=== PATIENT | male | born 1970 | race Caucasian/White ===

== ENCOUNTER 2018-09-29 18:11 | Inpatient (IN) ==
--- NOTE | 2018-09-29 18:17 | Emergency Department Note ---
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 Diabetes mellitus complication status: with hyperglycemia Qualified Code(s): E11.65 - Type 2 diabetes mellitus with hyperglycemia Chest pain Qualifiers: Chest pain type: unspecified Qualified Code(s): R07.9 - Chest pain, unspecified Disposition: Admitted As Inpatient Condition: Fair Time of Disposition: 00:59 General Adult HPI - General Stated complaint: SOB Time Seen by Provider: 09/29/18 18:15 Source: patient, EMS Mode of arrival: EMS Limitations: no limitations Nursing Notes Reviewed: Yes Vital Signs Reviewed: Yes - History of Present Illness HPI Narrative: 48-year-old male presenting via EMS after concerns of presyncopal episode, chest pain or shortness breath experienced today at home. EMS states patient's trailer was at least 100 degrees that he was diaphoretic at the scene. Patient states that he felt very lightheaded and nearly passed out but was caught by his son and assisted to a chair. Patient states he is having worsening chest pain shortness of breath today. Patient on presentation and is asymptomatic. Onset (ago): day(s) Location: chest Radiation: non-radiation Pain Severity: severe Pain Scale: 8 Associated symptoms: Reports: shortness of breath - Related Data Home Medications Medication Instructions Recorded Confirmed Loratadine [Claritin] 10 mg PO DAILY 09/30/15 09/30/18 Insulin Glargine,Hum.rec.anlog 35 units SQ HS 01/30/17 09/30/18 [Toujeo Solostar] Tizanidine HCl [Zanaflex] 4 mg PO HS 05/15/17 09/30/18 Albuterol Sulfate [Ventolin Hfa] 2 puff IH Q6H PRN 07/25/18 09/30/18 Cyanocobalamin/Folic AC/Vit B6 1 tab PO DAILY 07/25/18 09/30/18 [Folbee Tablet] DULoxetine [Cymbalta] 30 mg PO DAILY 07/25/18 09/30/18 Gabapentin 800 mg PO TID 07/25/18 09/30/18 Insulin ASPART [Novolog Flexpen] 20 unit SQ QID 07/25/18 09/30/18 Omeprazole [PriLOSEC] 40 mg PO BID 07/25/18 09/30/18 Clopidogrel [Plavix] 75 mg PO DAILY 08/27/18 09/30/18 Isosorbide MONOnitrate (24 HR) 60 mg PO DAILY 09/30/18 09/30/18 [Imdur] Previous Rx's Medication Instructions Recorded Aspirin 81 mg PO DAILY tab.chew 07/27/18 Atorvastatin Calcium 80 mg PO HS #30 tablet 07/27/18 Lisinopril [Zestril] 5 mg PO DAILY #30 tablet 07/27/18 Nitroglycerin 0.4 mg SL Q5M PRN #30 tab.subl 07/27/18 Allergies Allergy/AdvReac Type Severity Reaction Status Date / Time No Known Allergies Allergy Verified 09/30/18 16:20 Review of Systems: Constitutional: Denies: fever, chills Cardiovascular: Patient is currently asymptomatic. admits to chest pain earlier in the day. Respiratory: She is currently asymptomatic. reports dyspnea earlier today. Gastrointestinal: Denies: abdominal pain, nausea, vomiting, diarrhea, constipation, hematemesis, melena, hematochezia Musculoskeletal: Denies: back pain, neck pain Integumentary: Denies: rash Neurological: Denies: headache, weakness, numbness, paresthesias All systems ED: reviewed and negative except as stated. Review of Systems: As Per HPI Past Medical History - Past Medical History Medical history: Reports: coronary artery disease, diabetes, hypertension Surgical history: Reports: no surgical history Psychiatric history: Reports: no psych history - Social History Smoking Status: Never smoker Smokeless Tobacco Status: Yes Alcohol use: Reports: none Drug use: Reports: none Physical Exam Constitutional: No acute distress, [id number], engaged to conversation, speech is fluid, answers questions appropriately Neuro: GCS 15, no overt focal neurological deficits Head: Atraumatic, normocephalic Eyes: Pupils equal, round and reactive to light, no scleral icterus, no conjunctival injection Neck: Trachea midline without deviation. Anterior neck is supple without swelling. *Chest: Symmetric chest wall rise *Heart: Cardiac rhythm and rate are regular with S1 and S2 , no S3 or S4 appreciated, no murmurs, gallops, rubs, or clicks. *Lungs: Lungs are clear to auscultation bilaterally, without accessory muscle use or prolonged expiratory phase. No wheezes, rhonchi or stridor appreciated. Abdomen: Abdomen is flat, soft to palpation, normal bowel sounds. No abdominal bruit auscultated. Non-distended, non-rigid, no organomegaly, no ascites appreciated. No pulsatile mass, no tenderness or guarding to palpation in all four quadrants, no rebound Extremities: Normal capillary refill without evidence of pedal edema, joint sw elling or erythema. Pulses/motor/sensory intact in all 4 extremities. Psychiatric exam: Patient displays a normal affect and mood for the environment. No overt signs of hallucination. Integumentary: warm, dry, intact, normal color. No rash, cyanosis, diaphoresis, erythema, or pallor - General Limitations: no limitations General appearance: alert, in no apparent distress Course Course Narrative: CBC, BMP, hepatic panel, lipase EKG/old EKG troponin chest x-ray. CT - Reevaluation(s) Reevaluation #1: Spoke with Dr. Pedro Castaneda in cardiology who recommended beginning patient on heparin drip at this time. Cardiology consulted and is following. Vital Signs Temperature 98.6 F 09/29/18 18:35 Pulse Rate 80 09/29/18 18:35 Respiratory Rate 18 09/29/18 18:35 Blood Pressure 146/84 09/29/18 18:35 O2 Sat by Pulse Oximetry 99 09/29/18 18:35 Temperature 97.8 F 09/30/18 21:29 Pulse Rate 66 09/30/18 21:29 Respiratory Rate 14 09/30/18 21:29 Blood Pressure 145/82 09/30/18 21:29 O2 Sat by Pulse Oximetry 99 09/30/18 21:29 Oxygen Delivery Oxygen Delivery Room Air Medical Decision Making - [facility] Narrative Medical decision making narrative: Laboratory, imaging, EKG unremarkable for acute pathology Patient be admitted to hospital medicine service further evaluation and management of presyncopal episode in the setting of chest pain and shortness of breath. - Lab Data Lab results reviewed: Yes I reviewed the patient's lab results. Result diagrams: 09/30/18 02:04 09/30/18 07:34 Lab Results 09/29/18 09/29/18 09/29/18 Range/Units 18:44 18:44 18:44 WBC 9.4 (4.3-11.1) K/mcL RBC 4.63 (4.19-5.50) M/mcL Hgb 13.1 (12.9-16.9) g/dL Hct 39.4 (37.5-50.1) % MCV 85.1 (83.0-100.0) fL MCH 28.3 (28.0-33.3) pg MCHC 33.2 (31.6-35.5) g/dL RDW 12.1 (11.5-14.5) % Plt Count 360 (140-400) K/mcL MPV 10.6 (9.4-12.4) fL Immature Gran % 0.3 (0-4) % Seg Neutrophils % 63.7 % Lymphocytes % 23.1 % Monocytes % 10.2 % Eosinophils % 2.1 % Basophils % 0.6 % Neutrophils # 6.0 (1.6-8.9) K/mcL Lymphocytes # 2.2 (0.6-4.6) K/mcL Monocytes # 1.0 (0.0-1.3) K/mcL Eosinophils # 0.2 (0.0-0.6) K/mcL Basophils # 0.1 (0.0-0.2) K/mcL Sodium 132 L (136-145) mEq/L Potassium 4.4 (3.5-5.1) mEq/L Chloride 98 (98-107) mEq/L Carbon Dioxide 24 (23-29) mEq/L BUN 19 (6-20) mg/dL Creatinine 0.95 (0.70-1.30) mg/dL Est GFR ( Amer) > 60 (> 60) Est GFR (Non-Af Amer) > 60 (> 60) BUN/Creatinine Ratio 20 (6-26) Glucose 354 H (70-105) mg/dL Calculated Osmolality 290 (280-300) Calcium 9.5 (8.6-10.3) mg/dL Total Bilirubin 0.2 L (0.3-1.0) mg/dL Direct Bilirubin 0.0 (0.0-0.2) mg/dL Indirect Bilirubin 0.2 (0.0-1.2) mg/dL AST 11 L (13-39) Units/L ALT 10 (7-52) Units/L Alkaline Phosphatase 110 H (34-104) Units/L Creatine Kinase 128 (30-223) Units/L Troponin I < 0.03 (< 0.04) ng/mL Serum Total Protein 6.9 (6.4-8.9) g/dL Albumin 3.8 (3.5-5.7) g/dL Globulin 3.1 (2.4-3.5) g/dL Albumin/Globulin Ratio 1.2 (1.1-2.2) Lipase 21 (11-82) Units/L - Radiology Data Radiology results reviewed: Yes I reviewed the patient's radiology results. Chest X-Ray 09/29/18 18:16 IMPRESSION: No acute cardiopulmonary process D/ / Tevin Lopez / Tevin Lopez Interpreting Provider: Tevin Lopez Head CT 09/29/18 18:35 IMPRESSION: No acute intracranial abnormality. D/ / Rodolfo De La Rosa MD / Rodolfo De La Rosa MD Interpreting Provider: Rodolfo De La Rosa MD - EKG Data EKG #1 EKG attestation: Yes I reviewed and interpreted this EKG. EKG results narrative: Patient's EKG shows a sinus rhythm with first-degree AV block heart of 81 bpm,. Vital to 16 ms, QT duration 80 ms, QT/QTc interval 359/417 ms respectively. There are minimal ST segment elevations noted in lead 3, aVF, V2 and V3 without reciprocal change and consistent with prior EKG. There are no significant ST segment elevations, depressions, pathologic Q-wave inversions, abnormal T-wave inversions, or any other signs of acute ischemic change. This EKG performed today is generally consistent with prior EKG performed on September 022018. Repeat EKG shows sinus rhythm first degree AV block with a heart of 71 bpm IA interval 220 ms, QR restorationist of 89 ms, QT/QTC intervals 353/384 ms respectively. This EKG appears consistent with prior EKG is performed today and on 09/02/2018. Attestation Statement - Attestation Attestation: I have seen this patient with the resident physician, I have personally evaluated this patient. I had reviewed the chart and document dictation by the resident physician and aM in agreement with the information documented by the resident physician. Please see documentation by the resident physician for complete chart including past medical history, family medical history, review of systems, current history and physical and laboratory and imaging studies. I was present for all procedures, provided direct supervision for all procedures, was present for the entirety of all procedures and provided direct guidance during the procedures. Please see documentation by the resident physician for any procedures performed. I have reviewed all interpretations of EKGs, and reviewed all EKGs performed on patient's as well. I have also reviewed reports of imaging as provided by radiology.
[2018-09-29 19:07] LABS: Basophils # 0.1 K/mcL (0.0-0.2); Basophils % 0.6 %; Eosinophils # 0.2 K/mcL (0.0-0.6); Eosinophils % 2.1 %; Hematocrit 39.4 % (37.5-50.1); Hemoglobin 13.1 g/dL (12.9-16.9); Immature Granulocytes % 0.3 % (0-4); Lymphocytes # 2.2 K/mcL (0.6-4.6); Lymphocytes % 23.1 %; Mean Corpuscular HGB Conc 33.2 g/dL (31.6-35.5); Mean Corpuscular Hemoglobin 28.3 pg (28.0-33.3); Mean Corpuscular Volume 85.1 fL (83.0-100.0); Mean Platelet Volume 10.6 fL (9.4-12.4); Monocytes % 10.2 %; Platelet Count 360 K/mcL (140-400); Red Blood Count 4.63 M/mcL (4.19-5.50); Red Cell Distribution Width 12.1 % (11.5-14.5); Segmented Neutrophils % 63.7 %
[2018-09-29 19:21] LABS: Alanine Aminotransferase 10 Units/L (7-52); Albumin 3.8 g/dL (3.5-5.7); Albumin/Globulin Ratio 1.2 (1.1-2.2); Alkaline Phosphatase 110 Units/L (34-104); Aspartate Amino Transferase 11 Units/L (13-39); BUN/Creatinine Ratio 20 (6-26); Bilirubin,Indirect 0.2 mg/dL (0.0-1.2); Bilirubin,Total 0.2 mg/dL (0.3-1.0); Blood Urea Nitrogen 19 mg/dL (6-20); Calcium 9.5 mg/dL (8.6-10.3); Carbon Dioxide 24 mEq/L (23-29); Chloride 98 mEq/L (98-107); Globulin 3.1 g/dL (2.4-3.5); Glucose 354 mg/dL (70-105); Lipase 21 Units/L (11-82); Osmolality,Calculated 290 (280-300); Potassium 4.4 mEq/L (3.5-5.1); Sodium 132 mEq/L (136-145); Total Protein 6.9 g/dL (6.4-8.9); Troponin I < 0.03 ng/mL (< 0.04); eGFR For Non-African Americans > 60 (> 60)
[2018-09-29] MEDS ORDERED: *HR* Heparin 5,000 UNIT/ML VIAL IVP PRN (21:42)
[2018-09-29] MEDS ORDERED: *HR* Heparin 5,000 UNIT/ML VIAL IVP ONE (21:42)
--- NOTE | 2018-09-29 21:53 | Emergency Department Note ---
Disposition Clinical Impression: Diabetes, Chest pain Disposition: Admitted As Inpatient Condition: Fair Referrals: Michelle Barrios CNP [Primary Care Provider] - Time of Disposition: 21:54 General Adult HPI - General Chief complaint: ED Shortness of Breath/Dyspnea Stated complaint: SOB Time Seen by Provider: 09/29/18 18:15 Source: patient, EMS Nursing Notes Reviewed: Yes Vital Signs Reviewed: Yes - History of Present Illness Pain Scale: 0 - Related Data Home Medications Medication Instructions Recorded Confirmed Loratadine [Claritin] 10 mg PO DAILY 09/30/15 09/02/18 Insulin Glargine,Hum.rec.anlog 35 units SQ QPM 01/30/17 09/02/18 [Toujeo Solostar] Tizanidine HCl [Zanaflex] 4 mg PO HS 05/15/17 09/02/18 Albuterol Sulfate [Ventolin Hfa] 2 puff IH Q6H PRN 07/25/18 09/02/18 Cyanocobalamin/Folic AC/Vit B6 1 tab PO DAILY 07/25/18 09/02/18 [Folbee Tablet] DULoxetine [Cymbalta] 30 mg PO DAILY 07/25/18 09/02/18 Gabapentin 800 mg PO TID 07/25/18 09/02/18 Insulin ASPART [Novolog Flexpen] 20 unit SQ QID 07/25/18 09/02/18 Omeprazole [PriLOSEC] 40 mg PO BID 07/25/18 09/02/18 Clopidogrel [Plavix] 75 mg PO DAILY 08/27/18 09/02/18 Previous Rx's Medication Instructions Recorded Aspirin 81 mg PO DAILY tab.chew 07/27/18 Atorvastatin Calcium 80 mg PO HS #30 tablet 07/27/18 Lisinopril [Zestril] 5 mg PO DAILY #30 tablet 07/27/18 Nitroglycerin 0.4 mg SL Q5M PRN #30 tab.subl 07/27/18 Allergies Allergy/AdvReac Type Severity Reaction Status Date / Time No Known Allergies Allergy Verified 07/24/18 17:33 Past Medical History - Past Medical History Medical history: Reports: coronary artery disease, diabetes, hypertension Surgical history: Reports: no surgical history Psychiatric history: Reports: no psych history - Social History Smoking Status: Never smoker Smokeless Tobacco Status: No Alcohol use: Reports: none Drug use: Reports: none Physical Exam - General General appearance: alert Course Vital Signs Temperature 98.6 F 09/29/18 18:35 Pulse Rate 80 09/29/18 18:35 Respiratory Rate 18 09/29/18 18:35 Blood Pressure 146/84 09/29/18 18:35 O2 Sat by Pulse Oximetry 99 09/29/18 18:35 Temperature 98.6 F 09/29/18 18:35 Pulse Rate 74 09/29/18 20:46 Respiratory Rate 18 09/29/18 20:46 Blood Pressure 135/74 09/29/18 20:46 O2 Sat by Pulse Oximetry 99 09/29/18 20:46 Oxygen Delivery Oxygen Delivery Room Air Medical Decision Making - Lab Data Result diagrams: 09/29/18 18:44 09/29/18 18:44 Lab Results 09/29/18 09/29/18 09/29/18 Range/Units 18:44 18:44 18:44 WBC 9.4 (4.3-11.1) K/mcL RBC 4.63 (4.19-5.50) M/mcL Hgb 13.1 (12.9-16.9) g/dL Hct 39.4 (37.5-50.1) % MCV 85.1 (83.0-100.0) fL MCH 28.3 (28.0-33.3) pg MCHC 33.2 (31.6-35.5) g/dL RDW 12.1 (11.5-14.5) % Plt Count 360 (140-400) K/mcL MPV 10.6 (9.4-12.4) fL Immature Gran % 0.3 (0-4) % Seg Neutrophils % 63.7 % Lymphocytes % 23.1 % Monocytes % 10.2 % Eosinophils % 2.1 % Basophils % 0.6 % Neutrophils # 6.0 (1.6-8.9) K/mcL Lymphocytes # 2.2 (0.6-4.6) K/mcL Monocytes # 1.0 (0.0-1.3) K/mcL Eosinophils # 0.2 (0.0-0.6) K/mcL Basophils # 0.1 (0.0-0.2) K/mcL Sodium 132 L (136-145) mEq/L Potassium 4.4 (3.5-5.1) mEq/L Chloride 98 (98-107) mEq/L Carbon Dioxide 24 (23-29) mEq/L BUN 19 (6-20) mg/dL Creatinine 0.95 (0.70-1.30) mg/dL Est GFR ( Amer) > 60 (> 60) Est GFR (Non-Af Amer) > 60 (> 60) BUN/Creatinine Ratio 20 (6-26) Glucose 354 H (70-105) mg/dL Calculated Osmolality 290 (280-300) Calcium 9.5 (8.6-10.3) mg/dL Total Bilirubin 0.2 L (0.3-1.0) mg/dL Direct Bilirubin 0.0 (0.0-0.2) mg/dL Indirect Bilirubin 0.2 (0.0-1.2) mg/dL AST 11 L (13-39) Units/L ALT 10 (7-52) Units/L Alkaline Phosphatase 110 H (34-104) Units/L Creatine Kinase 128 (30-223) Units/L Troponin I < 0.03 (< 0.04) ng/mL Serum Total Protein 6.9 (6.4-8.9) g/dL Albumin 3.8 (3.5-5.7) g/dL Globulin 3.1 (2.4-3.5) g/dL Albumin/Globulin Ratio 1.2 (1.1-2.2) Lipase 21 (11-82) Units/L Attestation Statement - Attestation Attestation: I have seen this patient with the resident physician, I have personally evaluated this patient. I had reviewed the chart and document dictation by the resident physician and aM in agreement with the information documented by the resident physician. Please see documentation by the resident physician for complete chart including past medical history, family medical history, review of systems, current history and physical and laboratory and imaging studies. I was present for all procedures, provided direct supervision for all procedures, was present for the entirety of all procedures and provided direct guidance during the procedures. Please see documentation by the resident physic radha for any procedures performed. I have reviewed all interpretations of EKGs, and reviewed all EKGs performed on patient's as well. I have also reviewed reports of imaging as provided by radiology. Patient presented emergency department with chief complaint of chest pain shortness of breath nausea or diaphoresis not feeling well. He started not feeling well last night, thought it was discussed was hot outside, today he have progression of his symptoms, also started having a little diarrhea but primarily was concerned about the chest pain and shortness of breath and diaphoresis but he was sitting in a very hot trailer all day. He felt lightheaded but did not actually pass out. He reports they did just have a stent put in about a month ago he has been compliant with his medications. Patient reports that since being transported via paramedics receiving a liter of IV fluids as chest pain shortness of breath have seen and feeling improved and he has no current chest pain or shortness of breath. EKG prehospital was sent headache, had a lot of motion artifact, some potential abnormality within the inferior leads could have been suggestive of ST segment elevation, although did not appear to have any reciprocal change, and did not appear to have any tombstone appearance and appeared more like early repolarization. Upon arrival EKG was obtained, which demonstrates persistent early repolarization appearance to leads 2 and 3, with elevation within this to leads but no reciprocal change, and when compared to prior EKG, there is no evidence of acute change, there is no evidence of tombstone appearance, and patient has no chest pain currently, with no acute change on his EKG from prior EKG Basic laboratory studies were all within acceptable limits apart from an elevated blood sugar of 350 but no evidence of diabetic ketoacidosis, no evidence of anion gap cardiac enzymes were negative chest x-ray showed no acute findings. Chest x-ray was interpreted by radiology. I spoke with the hospitalist, who requested that we contact cardiology, discussed case with cardiology, who requested patient to be started on heparin, but agrees that there is no evidence of acute ST segment elevation myocardial infarction, recommends admission to hospitalist with consultation initiating heparin as cardioprotective as he does have a history of recent stenting. She was admitted for further evaluation and management.
[2018-09-29 22:59] LABS: Hematocrit 39.2 % (37.5-50.1); Hemoglobin 13.1 g/dL (12.9-16.9); Mean Corpuscular HGB Conc 33.4 g/dL (31.6-35.5); Mean Corpuscular Hemoglobin 28.5 pg (28.0-33.3); Mean Corpuscular Volume 85.4 fL (83.0-100.0); Mean Platelet Volume 10.5 fL (9.4-12.4); Platelet Count 341 K/mcL (140-400); Red Blood Count 4.59 M/mcL (4.19-5.50); Red Cell Distribution Width 12.2 % (11.5-14.5)
[2018-09-29 23:06] LABS: Heparin anti-factor XA UFH 0.05 IU/mL (0.30-0.70)
[2018-09-29 23:07] LABS: INR 1.8
[2018-09-29 23:09] LABS: Activated Partial Thrombo Time 32.2 Seconds (26.0-36.0)
[2018-09-29] MEDS ORDERED: Naloxone 0.4 MG/ML INJ IVP PRN (23:15)
--- NOTE | 2018-09-29 23:29 | Internal Med History&Physical ---
Date of Encounter: 09/29/18 Time of Encounter: 23:00 Internal Medicine - H&P: HPI Chief complaint: Shortness of breath Admitted From: Emergency Dept Plans for Post Hospital Care: Home History of present illness: Mr. Gaspar is a 48 year old male Patient presented to the emergency room with shortness of breath. States that he has been staying in a trailer outside of his nephew's house, and there is no air conditioning. He has been increasingly warm inside of the trailer, and he began having shortness of breath and feeling like he might pass out. He has a history of stent placement about one month ago and has been compliant with his medications. He developed chest pain as well and an ambulance was called. He had not had symptoms like this before. In the emergency room patient's initial vital signs were within normal limits. CBC was also within normal limits BMP showed a glucose of 354 but otherwise with in normal limits. Initial troponin was undetectable. INR was 1.8. A chest x- ray was ordered and showed no acute cardiopulmonary process. Head CT was also ordered that showed no acute intracranial abnormality. An EKG was obtained, and there were initial concerns for possible ST segment elevations in leads 2 and 3. Compared to previous does not appear to have acute change. Cardiology was cont acted, and the filling and stapling machine operator requested the patient be started on heparin but there is no evidence of ST elevation or myocardial infarction. Cardiology will see the patient in the morning. He was admitted to the hospital for further management. Upon my assessment, patient is resting comfortably in the hospital bed in no acute distress. He says it is getting back pain from the uncomfortable bed. His chest pain has eased up. He denies abdominal pain, nausea, vomiting, diarrhea and constipation. He has not had recent cough. He denies smoking alcohol and other drug use. He says his mother had history of diabetes and heart disease, and is not sure about his father's side of the family. He is a full code. Past Med Surg Social Fam HX - Past Medical History Medical history: coronary artery disease, diabetes, hypertension Additional medical history: PE Psychiatric history: no psych history - Past Surgical History Surgical History: no surgical history Additional surgical history: stent - Social History Smoking Status: Never smoker Smokeless Tobacco Status: No Alcohol use: none Drug use: none - Family History Mother Living Status: Hx Family Cardiac Disorders: Yes Hx Family Endocrine Disorder: Yes Internal Medicine - H&P: Meds Loratadine [Claritin] 10 mg PO DAILY 09/30/15 [History] Insulin Glargine,Hum.rec.anlog [Toujeo Solostar] 35 units SQ QPM 01/30/17 [History] Tizanidine HCl [Zanaflex] 4 mg PO HS 05/15/17 [History] Albuterol Sulfate [Ventolin Hfa] 2 puff IH Q6H PRN 07/25/18 [History] Cyanocobalamin/Folic AC/Vit B6 [Folbee Tablet] 1 tab PO DAILY 07/25/18 [History] DULoxetine [Cymbalta] 30 mg PO DAILY 07/25/18 [History] Gabapentin 800 mg PO TID 07/25/18 [History] Insulin ASPART [Novolog Flexpen] 20 unit SQ QID 07/25/18 [History] Omeprazole [PriLOSEC] 40 mg PO BID 07/25/18 [History] Aspirin 81 mg PO DAILY tab.chew 07/27/18 [Rx] Atorvastatin Calcium 80 mg PO HS #30 tablet 07/27/18 [Rx] Lisinopril [Zestril] 5 mg PO DAILY #30 tablet 07/27/18 [Rx] Nitroglycerin 0.4 mg SL Q5M PRN #30 tab.subl 07/27/18 [Rx] Clopidogrel [Plavix] 75 mg PO DAILY 08/27/18 [History] Allergy/AdvReac Type Severity Reaction Status Date / Time No Known Allergies Allergy Verified 07/24/18 17:33 All Systems PM: A 10-system review of systems was performed and is negative for pertinent findings except as documented above in the HPI. - Constitutional Vitals: Temp Pulse Resp BP Pulse Ox 98.6 F 74 18 135/74 99 09/29/18 18:35 09/29/18 20:46 09/29/18 20:46 09/29/18 20:46 09/29/18 20:46 General appearance: Present: cooperative, A&O X 3, pleasant, no acute distress, answers questions appropriately Exam: - - Head Head exam: Present: normal inspection - Eye Eye exam: Present: EOMI, normal appearance - Respiratory Respiratory exam: Present: CTAB. Absent: rales, respiratory distress, rhonchi, wheezes - Cardiovascular Cardiovascular exam: Present: RRR, systolic murmur. Absent: diastolic murmur Additional comments: Grade 2 systolic murmur heard on exam - GI/Abdominal GI/Abdominal exam: Present: normal bowel sounds, soft. Absent: tenderness - Extremities Exam Extremities exam: Present: mottling, warm, radial pulses palpable and symmetrical. Absent: calf tenderness, pedal edema, tenderness - Back Exam Back exam: Absent: tenderness - Neurological Exam Neurological exam: Present: no focal deficits, strengths equal and symetr throughout. Absent: motor sensory deficit, facial droop, speech deficit - Skin Skin exam: Present: dry, normal color, warm Internal Med - H&P Results - Labs CBC & Chem 7: 09/29/18 22:41 09/29/18 18:44 Labs: Short CBC 09/29/18 09/29/18 Range/Units 18:44 22:41 WBC 9.4 9.4 (4.3-11.1) K/mcL Hgb 13.1 13.1 (12.9-16.9) g/dL Hct 39.4 39.2 (37.5-50.1) % Plt Count 360 341 (140-400) K/mcL Neutrophils # 6.0 (1.6-8.9) K/mcL BMP 09/29/18 18:44 Sodium 132 L Potassium 4.4 Chloride 98 Carbon Dioxide 24 BUN 19 Creatinine 0.95 Glucose 354 H Calcium 9.5 Cardiac Enzymes 09/29/18 Range/Units 18:44 Troponin I < 0.03 (< 0.04) ng/mL Liver Function 09/29/18 Range/Units 18:44 Total Bilirubin 0.2 L (0.3-1.0) mg/dL Direct Bilirubin 0.0 (0.0-0.2) mg/dL AST 11 L (13-39) Units/L ALT 10 (7-52) Units/L Alkaline Phosphatase 110 H (34-104) Units/L Albumin 3.8 (3.5-5.7) g/dL - Impressions ITS Impressions Chest X-Ray 09/29/18 18:16 IMPRESSION: No acute cardiopulmonary process D/ / Tevin Lopez / Tevin Lopez Interpreting Provider: Tevin Lopez Head CT 09/29/18 18:35 IMPRESSION: No acute intracranial abnormality. D/ / Rodolfo De La Rosa MD / Rodolfo De La Rosa MD Interpreting Provider: Rodolfo De La Rosa MD - Assessment and Plan (1) Shortness of breath Current Visit: Yes Status: Acute Assessment and plan: Could be secondary to the environment patient was in prior to his transfer. He stated that he has been in a hot trailer for the last 2 days. His symptoms have improved, and patient will be evaluated for chest pain in the setting of severe coronary artery disease. Oxygen supplementation as needed Continue to monitor her vital signs Management of chest pain as below. (2) Elevated INR Current Visit: Yes Status: Acute Assessment and plan: Patient's INR was 1.8, he is not on warfarin or anticoagulation. Platelet count is normal and other liver tests are also essentially normal. Repeat INR in the morning (3) Chest pain Current Visit: Yes Status: Acute Assessment and plan: Patient has significant history of coronary artery disease. He had a recent stent placed in July. Cardiology contacted for suspicious EKG. Recommended heparin drip, and cardiology will see in the morning. Continue cardiac monitoring Continue to trend troponins Follow-up cardiology recommendations Initiate heparin drip Qualifiers: Chest pain type: unspecified Qualified Code(s): R07.9 - Chest pain, unspecified (4) Diabetes Current Visit: Yes Status: Acute Assessment and plan: Patient is an insulin dependent diabetic Monitor sugars every 6 hours Diabetic diet/cardiac diet and nothing by mouth after midnight Low dose insulin sliding scale as needed Hold home meds. Qualifiers: Diabetes mellitus type: type 2 Diabetes mellitus oysterman insulin use: with prison use Diabetes mellitus complication status: with hyperglycemia Qualified Code(s): E11.65 - Type 2 diabetes mellitus with hyperglycemia; Z79.4 - care home (current) use of insulin (5) DVT prophylaxis Current Visit: Yes Status: Acute Assessment and plan: Initiating heparin drip - Time Spent With Patient Total time spent is greater than 50% in coordination of care (as documented) at patient's floor/unit and/or counseling patient: Greater than 35 minutes
[2018-09-29] MEDS ORDERED: D5% in Water 1,000 ML IVC PRN (23:34)
[2018-09-29] MEDS ORDERED: *HR* Dextrose 50 % in Water (Syg) 50 ML SYRINGE IVP PRN (23:34)
[2018-09-29] MEDS ORDERED: Dextrose Gel 15 GM/37.5 ML TUBE PO PRN ×2 (23:34)
[2018-09-30] MEDS: Insulin LISPRO 300 UNITS/3 ML VIAL SQ SCH ×5 (02:23→21:31)
[2018-09-30] MEDS: Heparin 25,000 UNIT/250 ML D5W 25,000 UNIT/250 ML IV.SOLN IVC SCH (03:27)
[2018-09-30] MEDS: 0.9 % Sodium Chloride 500 ML ONE (03:41)
[2018-09-30 06:51] LABS: Hemoglobin 13.6 g/dL (12.9-16.9); Mean Corpuscular HGB Conc 33.2 g/dL (31.6-35.5); Mean Corpuscular Hemoglobin 28.6 pg (28.0-33.3); Mean Corpuscular Volume 86.3 fL (83.0-100.0); Mean Platelet Volume 10.8 fL (9.4-12.4); Platelet Count 373 K/mcL (140-400); Red Blood Count 4.75 M/mcL (4.19-5.50); Red Cell Distribution Width 12.3 % (11.5-14.5)
[2018-09-30 06:58] LABS: INR 1.8; Prothrombin Time 20.7 Seconds (9.4-12.1)
[2018-09-30 08:17] LABS: BUN/Creatinine Ratio 22 (6-26); Blood Urea Nitrogen 16 mg/dL (6-20); Calcium 9.3 mg/dL (8.6-10.3); Carbon Dioxide 26 mEq/L (23-29); Chloride 104 mEq/L (98-107); Glucose 209 mg/dL (70-105); Osmolality,Calculated 293 (280-300); Potassium 3.9 mEq/L (3.5-5.1); Sodium 138 mEq/L (136-145); eGFR For Non-African Americans > 60 (> 60)
--- NOTE | 2018-09-30 09:04 | Cardiology Consult Note ---
Date of Encounter: 09/30/18 Time of Encounter: 09:00 Assessment and Plan (1) Chest pain Current Visit: Yes Status: Acute -Patients presents to ED because of chest pain and shortness of breath. -He had left heart catheterization with CAD s/p PCI AHMET distal RCA on 07/27/18 was discharged on aspirin and Plavix -Was also evaluated by [facility] because of chest pain post LHC and was recommended medical management, patient was also started on Coumadin because of finding of LV thrombus with a target INR 2-3. -Patient was discharged in aspirin+ statin + Plavix + metoprolol + lisinopril + Imdur 60 mg PO daily PLAN: - continue heparin gtt bridge with warfarin for a target IN 2-3. - continue ASA + plavix + imdur 60 mg + high intensity statin - will start him on metoprolol tartarate 12.5 mg BID - will get Echo with definity for past history of Apical Thrombus Qualifiers: Chest pain type: unspecified Qualified Code(s): R07.9 - Chest pain, unspecified Discussion w patient/family: The assessment and plan as outlined above was discussed with the patient and/or family members who expressed understanding and agreement. All questions were answered. Thank you for involving us in the care of your patient. Please call with any questions. History of Present Illness Consult date: 09/30/18 History of present illness: Mr. Gaspar is a 48 year old male with past medical history of diabetes, hypertension, hyperlipidemia apical thrombus who presents to the ED because of shortness of breath. Patient endorsed that he has been staying in the trailer outside of his nephew's house without any air-conditioning Patient recently had left heart catheterization with CAD s/p PCI AHMET distal RCA on 07/27/18 was discharged on aspirin and Plavix. After placement of left heart catheter and drug-eluting stent he presented again with chest pain and was evaluated by cardiac surgery at [facility] who felt that CABG was not feasible and was transferred to [facility] on 08/29/18. At [facility] patient's LHC films were analyzed and no further intervention was necessary. Patient's medical regimen was optimized and he was also started on 7mg PO warfarin for discovered LV thrombus with a goal INR 2-3. Patient was discharged on aspirin + statin + Plavix + metoprolol + lisinopril + Imdur 60 mg PO daily. Patient is a poor historian and has no recollection what medications he takes on a regular basis. He followed up with cardiology as an outpatient here at the [facility] after his hospital stay at [facility] and as per the documentation patient was found to be noncompliant with Coumadin. During that visit, patient did not endorse any pain, dyspnea or syncope. Initial workup in the EKG on this admission showed patient's EKG to be a normal size sinus rhythm with first-degree AV block. There were no ST elevations, had T wave depressions in I, aVL, long CT interval of 228. EKG also showed poor R wave progression.He had normal troponins . He was started on heparin drip and was admitted to the floor for further management Past Med Surg Social Fam HX - Past Medical History Medical history: coronary artery disease, diabetes, hypertension Additional medical history: PE Psychiatric history: no psych history - Past Surgical History Surgical History: no surgical history Additional surgical history: stent - Social History Smoking Status: Never smoker Smokeless Tobacco Status: No Alcohol use: none Drug use: none - Family History Mother Living Status: Hx Family Cardiac Disorders: Yes Hx Family Endocrine Disorder: Yes Medications and Allergies Loratadine [Claritin] 10 mg PO DAILY 09/30/15 [History] Insulin Glargine,Hum.rec.anlog [Touyono Solostar] 35 units SQ QPM 01/30/17 [History] Tizanidine HCl [Zanaflex] 4 mg PO HS 05/15/17 [History] Albuterol Sulfate [Ventolin Hfa] 2 puff IH Q6H PRN 07/25/18 [History] Cyanocobalamin/Folic AC/Vit B6 [Folbee Tablet] 1 tab PO DAILY 07/25/18 [History] DULoxetine [Cymbalta] 30 mg PO DAILY 07/25/18 [History] Gabapentin 800 mg PO TID 07/25/18 [History] Insulin ASPART [Novolog Flexpen] 20 unit SQ QID 07/25/18 [History] Omeprazole [PriLOSEC] 40 mg PO BID 07/25/18 [History] Aspirin 81 mg PO DAILY tab.chew 07/27/18 [Rx] Atorvastatin Calcium 80 mg PO HS #30 tablet 07/27/18 [Rx] Lisinopril [Zestril] 5 mg PO DAILY #30 tablet 07/27/18 [Rx] Nitroglycerin 0.4 mg SL Q5M PRN #30 tab.subl 07/27/18 [Rx] Clopidogrel [Plavix] 75 mg PO DAILY 08/27/18 [History] Allergy/AdvReac Type Severity Reaction Status Date / Time No Known Allergies Allergy Verified 07/24/18 17:33 All Systems Review: The remainder of the systems were reviewed and are negative - Constitutional Constitutional: no fatigue - Cardiovascular Cardiovascular: chest pain at rest - Respiratory Respiratory: no cough - Gastrointestinal Gastrointestinal: no abdominal pain Physical Examination Other: Gen.: Vitals noted. No acute distress. Alert, awake and oriented * [address], [address], and time, well developed, well-nourished resting comfortably in bed. Pleasant. HEENT: oropharynx clear, Normocephalic, atraumatic, MMM Neck: supple, no JVD, no lymphadenopathy, no carotid bruit. Cardiac: RRR, no murmur, +S1/S2, No BLE edema, PMI non-displaced Pulmonary: CTA bilaterally, no wheezes, rales or rhonchi, equal chest expansion, unlabored breathing Abdomen: soft, nontender, BS noted, no guarding, non- distended. No organomegaly, no pulsatile masses, Skin: warm and dry, no visible lesions. Feels warm, clammy, no rashes, no lesions, no erythema MSK: ROM not assessed. no joint swelling noted, gait not assessed while in bed. Non tender calf or clubbing, no cyanosis/clubbing/ or edema Neuro: A&O, moves all extremities, no focal deficits, sensation intact Psych: Appropriate mood and behavior, normal speech, Results 09/30/18 02:04 09/30/18 07:34 Lab Results 09/29/18 09/29/18 09/29/18 18:44 18:44 22:41 WBC 9.4 9.4 Hgb 13.1 13.1 Hct 39.4 39.2 Plt Count 360 341 INR APTT Sodium 132 L Potassium 4.4 Chloride 98 Carbon Dioxide 24 BUN 19 Creatinine 0.95 Glucose 354 H Calcium 9.5 Total Bilirubin 0.2 L AST 11 L ALT 10 Alkaline Phosphatase 110 H Troponin I < 0.03 Lipase 21 09/29/18 09/30/1819 22:41 02:04 02:04 WBC 9.0 Hgb 13.6 Hct 41.0 Plt Count 373 INR 1.8 1.8 APTT 32.2 Sodium Potassium Chloride Carbon Dioxide BUN Creatinine Glucose Calcium Total Bilirubin AST ALT Alkaline Phosphatase Troponin I Lipase 09/30/18 07:34 WBC Hgb Hct Plt Count INR APTT Sodium 138 Potassium 3.9 Chloride 104 Carbon Dioxide 26 BUN 16 Creatinine 0.73 Glucose 209 H Calcium 9.3 Total Bilirubin AST ALT Alkaline Phosphatase Troponin I Lipase Consult Discharge Plan - Plan Referrals: Michelle Barrios, RICE DRIER [Primary Care Provider] -
--- NOTE | 2018-09-30 09:42 | Internal Med Progress Note ---
Hospitalist Progress Note - Encounter Date of Encounter: 09/30/18 Time of Encounter: 09:37 - Subjective Interval History: Reason seen and examined this morning at bedside. No acute overnight events. Complains of action maintaining chest pain. Has tingling in both the hands but that has ongoing for a while. Denies any nausea vomiting. Complains of back pain which is also more or less chronic. - Exam Vitals: Temp Pulse Resp BP Pulse Ox 97.5 F L 87 16 155/93 95 09/30/18 01:52 09/30/18 01:52 09/30/18 01:52 09/30/18 01:52 09/30/18 01:52 Exam: General: In no acute distress. obese Respiratory exam: CTAB. no accessory muscle use, rales, rhonchi, wheezes Cardiovascular exam: RRR, +S1, +S2. no murmur, gallop, rubs. Lt chest wall tenderness GI/Abdominal exam: Non-tender, Non-distended, normal bowel sounds, soft, no peritoneal signs. Extremities exam: no pedal edema, pulses palpable in b/l lower extremities. no calf tenderness Neurological exam: CN II-XII intact, AO X3, no focal deficits. Skin exam: No skin rash - Summary of Assessment and Plan Summary of Assessment and Plan: Assessment Atypical chest pain History of coronary artery disease with stenting in July Elevated INR Diabetes Peripheral neuropathy Plan - Patient is currently nothing by mouth and on heparin drip. On aspirin and Plavix after his recent stent. Says he is compliant. Some chest wall tenderness on palpation as well. Cardiology has been consulted given recent CAD. Further recommendation appreciated. - Start patient on home gabapentin and Zanaflex for back pain. Will add when necessary acetaminophen. - Elevated INR noted compared to recent admission. Denies any bleeding history. Will monitor for now. Not on any anticoagulants. Mixing study is a reference test and will take a while. Will differ to outpatient if INR continues to be elevated. Monitor for bleeding. - Continue with sliding scale insulin and Accu-Cheks. - Time Spent with Patient Total time spent is greater than 50% in coordination of care (as documented) at patient's floor/unit and/or counseling patient: Internal Medicine: Result - Labs CBC & Chem 7: 09/30/18 02:04 09/30/18 07:34 Labs: Short CBC 09/29/18 09/29/18 09/30/18 Range/Units 18:44 22:41 02:04 WBC 9.4 9.4 9.0 (4.3-11.1) K/mcL Hgb 13.1 13.1 13.6 (12.9-16.9) g/dL Hct 39.4 39.2 41.0 (37.5-50.1) % Plt Count 360 341 373 (140-400) K/mcL Neutrophils # 6.0 (1.6-8.9) K/mcL BMP 09/29/18 09/30/18 18:44 07:34 Sodium 132 L 138 Potassium 4.4 3.9 Chloride 98 104 Carbon Dioxide 24 26 BUN 19 16 Creatinine 0.95 0.73 Glucose 354 H 209 H Calcium 9.5 9.3 Cardiac Enzymes 09/29/18 Range/Units 18:44 Troponin I < 0.03 (< 0.04) ng/mL Liver Function 09/29/18 Range/Units 18:44 Total Bilirubin 0.2 L (0.3-1.0) mg/dL Direct Bilirubin 0.0 (0.0-0.2) mg/dL AST 11 L (13-39) Units/L ALT 10 (7-52) Units/L Alkaline Phosphatase 110 H (34-104) Units/L Albumin 3.8 (3.5-5.7) g/dL - ABG Interpretation ABG results: PT/INR, D-dimer PT 20.7 Seconds (9.4-12.1) H 09/30/18 02:04 - Impressions Impressions Chest X-Ray 09/29/18 18:16 IMPRESSION: No acute cardiopulmonary process D/ / Tevin Lopez / Tevin Lopez Interpreting Provider: Tevin Lopez Head CT 09/29/18 18:35 IMPRESSION: No acute intracranial abnormality. D/ / Rodolfo De La Rosa MD / Rodolfo De La Rosa MD Interpreting Provider: Rodolfo De La Rosa MD Consult Discharge Plan - Plan Referrals: Michelle Barrios, REBAR BENDER [Primary Care Provider] -
[2018-09-30] MEDS ORDERED: Acetaminophen 325 MG TABLET PO PRN (10:05)
[2018-09-30] MEDS: Gabapentin 400 MG CAPSULE PO SCH ×3 (10:09→21:22)
[2018-09-30] MEDS: tiZANidine 4 MG TABLET PO PRN (10:09)
--- NOTE | 2018-09-30 10:24 | Electrocardiograph Report ---
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
--- NOTE | 2018-09-30 10:27 | Electrocardiograph Report ---
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
--- NOTE | 2018-09-30 13:27 | Event Note ---
Date of Encounter: 09/30/18 Time of Encounter: 13:21 Patient independently seen and examined with resident. Patient a very poor historian. Diagnosed with severe CAD in 07/2015. Offered transfer for CABG, but declined. s/p staged PCI to RCA on 07/26/[address] Castaneda. Per reports, transfered to [facility] in 08/2018. Placed on Coumadin for LV thrombus. Need to obtain all records from [facility]. Unclear if revascularization performed. Recommend continue medical therapy for now. Check TTE with Definity. Further recommendations to follow.
[2018-09-30] MEDS: *HR* OxyCODONE/APAP 5/325 TABLET PO PRN ×2 (13:28→23:59)
[2018-09-30] MEDS: Aspirin 81 MG TAB.CHEW PO SCH (15:36)
[2018-09-30] MEDS: Isosorbide MONOnitrate (24 HR) 60 MG TAB.ER.24H PO SCH (15:37)
[2018-09-30] MEDS: *HR* Heparin 5,000 UNIT/ML VIAL IVP PRN (16:54)
[2018-09-30] MEDS ORDERED: Perflutren Lipid Microsphere 1.3 ML in 0.9 % Sodium Chloride 8.7 ML IVP ONE (21:52)
[2018-10-01] MEDS: Heparin 25,000 UNIT/250 ML D5W 25,000 UNIT/250 ML IV.SOLN IVC SCH ×2 (02:45→23:47)
[2018-10-01 06:00] LABS: INR 1.7; Prothrombin Time 18.7 Seconds (9.4-12.1)
[2018-10-01] MEDS: Insulin LISPRO 300 UNITS/3 ML VIAL SQ SCH ×4 (06:00→21:32)
[2018-10-01] MEDS: tiZANidine 4 MG TABLET PO PRN (07:27)
[2018-10-01] MEDS: Aspirin 81 MG TAB.CHEW PO SCH (07:29)
[2018-10-01] MEDS: Gabapentin 400 MG CAPSULE PO SCH ×3 (07:29→21:39)
[2018-10-01] MEDS: Isosorbide MONOnitrate (24 HR) 60 MG TAB.ER.24H PO SCH (07:29)
--- NOTE | 2018-10-01 11:48 | Internal Med Progress Note ---
Hospitalist Progress Note - Encounter Date of Encounter: 10/01/18 Time of Encounter: 09:39 - Subjective Interval History: Patient seen and examined this morning at bedside. No acute overnight events. Denies any chest pain and difficulty breathing. Neck pain improved after pain medication. Denies new complaints. Bowel or bladder complaints. - Exam Vitals: Temp Pulse Resp BP Pulse Ox 97.6 F 56 16 103/65 96 10/01/18 11:06 10/01/18 11:06 10/01/18 11:06 10/01/18 11:06 10/01/18 11:06 Exam: General: In no acute distress. obese Respiratory exam: CTAB. no accessory muscle use, rales, rhonchi, wheezes Cardiovascular exam: RRR, +S1, +S2. no murmur, gallop, rubs. Lt chest wall ten derness GI/Abdominal exam: Non-tender, Non-distended, soft, no peritoneal signs. Extremities exam: no pedal edema, pulses palpable in b/l lower extremities. no calf tenderness Neurological exam: CN II-XII intact, AO X3, no focal deficits. Skin exam: No skin rash - Summary of Assessment and Plan Summary of Assessment and Plan: Assessment Atypical chest pain History of coronary artery disease with stenting in July Elevated INR Diabetes Peripheral neuropathy Plan - Currently without chest pain or shortness of breath. Recent cath with stent on 07/27/18. apparently was on coumadin for LV thrombus. Repeat echo with EF of 45- 50% and showed LV thrombus. c/w heparin drip. will start patient on coumadin. c/w aspirin, Plavix, statin, imdur and metoprolol. Cardiology following. Further recommendation appreciated. awaiting records from [facility]. - c/w home duloxetin, gabapentin and Zanaflex pain regimen for back pain. - Elevated INR. Was on coumadin for LV thrombus. - Continue with sliding scale insulin and Accu-Cheks. Start levemir 10 units - Time Spent with Patient Total time spent is greater than 50% in coordination of care (as documented) at patient's floor/unit and/or counseling patient: Internal Medicine: Result - Labs CBC & Chem 7: 09/30/18 02:04 09/30/18 07:34 Labs: Cardiac Enzymes 09/30/18 Range/Units 15:32 Troponin I < 0.03 (< 0.04) ng/mL - ABG Interpretation ABG results: PT/INR, D-dimer PT 18.7 Seconds (9.4-12.1) H 10/01/18 04:59 - Impressions Impressions Echocardiogram Limited Views 09/30/18 13:30 Impressions: LVEF 45-50%. Definity echo contrast was used. There is a left ventricular thrombus. Atypical septal motion consistent with bundle branch block. Left Ventricular Wall Motion: Rest Echo Findings The apical lateral wall was hypokinetic. The apex and apical septal sanchez were akinetic. All other wall segments showed normal motion. Findings: Study Quality * Technically adequate exam. ECG Findings * Sinus rhythm with BBB. Left Ventricle * LVEF 45-50%. * Definity echo contrast was used. * There is a left ventricular thrombus. * Atypical septal motion consistent with bundle branch block. Consult Discharge Plan - Plan Referrals: Michelle Barrios, [employer] ROOM OPERATOR [Primary Care Provider] -
[2018-10-01] MEDS: *HR* OxyCODONE/APAP 5/325 TABLET PO PRN ×2 (11:51→23:51)
[2018-10-01] MEDS: 0.9 % Sodium Chloride 500 ML ONE ×3 (11:51→12:25)
--- NOTE | 2018-10-01 12:56 | Cardiology Progress Note ---
Date of Encounter: 10/01/18 Time of Encounter: 12:54 Assessment and Plan (1) CAD in [place] artery Current Visit: Yes Status: Acute No history of CAD, PCI to the RCA performed in July 2018. Surgery was considered at that time, but patient was deemed a prohibitive candidate due to poor targets. In August, he was evaluated at [facility]. Films reviewed by interventional cardiology. They also that patient had poor targets for revascularization, both by surgery and PCI. Medical therapy was recommended. Since admission, patient reports that he is feeling better. Serial troponin measurements are negative. Recommend continue medical therapy. Continue aspirin, Plavix, and statin therapy. Heart rate will not tolerate an increase in beta julian. Increase Imdur to 120 mg daily. Add Ranexa 500 mg twice daily. Risk factor modification emphasized. Recommended outpatient follow-up with primary sales enablement manager, Dr. Castaneda. (2) Left ventricular apical thrombus Current Visit: Yes Status: Acute Per reports from [facility], patient was diagnosed with an LV apical thrombus. Coumadin was recommended. Goal INR is 2-3. Okay to stop heparin once INR therapeutic. Discussion w patient/family: The assessment and plan as outlined above was discussed with the patient and/or family members who expressed understanding and agreement. All questions were answered. Thank you for involving us in the care of your patient. Please call with any questions. Subjective Principal diagnosis: Chest discomfort Interval history: Overall, patient reports he is feeling better. No further chest discomfort since admission. Reports from [facility] received. July films from [place] reviewed by interventional cardiology at [facility]. No targets for surgical revascularization and no targets for percutaneous intervention. Medical therapy was recommended. Objective Vital Signs, Last 4 Hours Temp Pulse Resp BP Pulse Ox 10/01/18 11:06 97.6 F 56 16 103/65 96 General: Conversant, No Apparent Distress HEENT: Atraumatic, Normocephaly, Mucus Membranes Moist Neck: No JVD, Normal carotid pulses Cardiac: Reg Rate and Rhythm, Normal S1 and S2, No Murmur Lungs: Normal Breath Sounds, No Wheeze, Rales, Rhonchi Neuro: Alert and responsive, No focal deficits noted Abdomen: Soft, Non-Tender Skin: No rashes noted on visualized skin Musculoskeletal: No Chest Wall Tenderness Extremities: No Clubbing, No Cyanosis, No Edema Results 09/30/18 02:04 09/30/18 07:34 Lab Results 09/30/18 10/01/18 15:32 04:59 INR 1.7 Troponin I < 0.03 - Imaging and Cardiology Echo: report reviewed Cardiac cath: report reviewed - EKG Interpretation EKG results cardiology: personally reviewed Consult Discharge Plan - Plan Referrals: Michelle Barrios, ROBY [Primary Care Provider] -
[2018-10-01] MEDS: Ranolazine 500 MG TAB.ER.12H PO SCH ×2 (13:30→21:39)
[2018-10-01] MEDS ORDERED: *HR* Warfarin 3 MG TABLET PO ONE (18:00)
[2018-10-01] MEDS ORDERED: Warfarin perPT PO PRN (18:00)
[2018-10-01] MEDS: Insulin DETEMIR 100 UNIT/ML X5UNITS SQ SCH (21:40)
[2018-10-02 05:19] LABS: INR 1.5; Prothrombin Time 16.9 Seconds (9.4-12.1)
[2018-10-02] MEDS: *HR* Heparin 5,000 UNIT/ML VIAL IVP PRN (05:46)
[2018-10-02] MEDS: Insulin LISPRO 300 UNITS/3 ML VIAL SQ SCH ×4 (08:25→20:42)
[2018-10-02] MEDS: Gabapentin 400 MG CAPSULE PO SCH ×3 (08:26→20:41)
[2018-10-02] MEDS: Isosorbide MONOnitrate (24 HR) 30 MG TAB.ER.24H PO SCH (08:26)
[2018-10-02] MEDS: Aspirin 81 MG TAB.CHEW PO SCH (08:26)
[2018-10-02] MEDS: Ranolazine 500 MG TAB.ER.12H PO SCH ×2 (08:26→20:41)
--- NOTE | 2018-10-02 11:07 | Internal Med Progress Note ---
Hospitalist Progress Note - Encounter Date of Encounter: 10/02/18 Time of Encounter: 07:52 - Subjective Interval History: Patient seen and examined this morning at bedside. No acute overnight events. Denies any chest pain difficulty breathing or back pain. Denies constipation or diarrhea. No urinary difficulties. - Exam Vitals: Temp Pulse Resp BP Pulse Ox 97.7 F 64 16 127/80 95 10/02/18 06:29 10/02/18 06:29 10/02/18 06:29 10/02/18 06:29 10/02/18 06:29 Exam: General: In no acute distress. obese Respiratory exam: CTAB. no accessory muscle use, rales, rhonchi, wheezes Cardiovascular exam: RRR, +S1, +S2. no murmur, gallop, rubs. GI/Abdominal exam: Non-tender, Non-distended, soft, no peritoneal signs. Extremities exam: no pedal edema, no calf tenderness Neurological exam: CN II-XII intact, AO X3, no focal deficits. Skin exam: No skin rash - Summary of Assessment and Plan Summary of Assessment and Plan: Assessment Atypical chest pain History of coronary artery disease with stenting in July LV thrombus Diabetes Peripheral neuropathy Plan - Currently without chest pain or shortness of breath. Recent cath with stent to RCA on 07/27/18. Surgery was considered but poor targets for revascularization. Also had LV thrombus and put on coumadin. - OMT per cardio. Repeat echo with EF of 45-50% and showed LV thrombus. c/w aspirin, Plavix, statin, imdur(dose increased than home) and metoprolol. Ranexa added. cardiology signed off - c/w heparin drip to bridge with coumadin. Pharmacy to dose. INR still subtherapeutic. goal 2-3. - c/w home duloxetin, gabapentin and Zanaflex pain regimen for back pain. - Continue with Levemir 10, SSI and Accu-Cheks. - Time Spent with Patient Total time spent is greater than 50% in coordination of care (as documented) at patient's floor/unit and/or counseling patient: Internal Medicine: Result - Labs CBC & Chem 7: 09/30/18 02:04 09/30/18 07:34 - ABG Interpretation ABG results: PT/INR, D-dimer PT 16.9 Seconds (9.4-12.1) H 10/02/18 04:55 Consult Discharge Plan - Plan Referrals: Michelle Barrios, ROBY [Primary Care Provider] -
[2018-10-02] MEDS: *HR* OxyCODONE/APAP 5/325 TABLET PO PRN ×2 (12:07→23:50)
[2018-10-02] MEDS ORDERED: *HR* Warfarin 3 MG TABLET PO ONE (18:00)
[2018-10-02] MEDS: Heparin 25,000 UNIT/250 ML D5W 25,000 UNIT/250 ML IV.SOLN IVC SCH (19:46)
[2018-10-02] MEDS: Insulin DETEMIR 100 UNIT/ML X5UNITS SQ SCH (20:42)
[2018-10-02] MEDS ORDERED: 0.9 % Sodium Chloride 250 ML ONE (20:49)
[2018-10-03 05:31] LABS: INR 1.7
[2018-10-03] MEDS: Isosorbide MONOnitrate (24 HR) 30 MG TAB.ER.24H PO SCH (09:32)
[2018-10-03] MEDS: Ranolazine 500 MG TAB.ER.12H PO SCH ×2 (09:32→20:20)
[2018-10-03] MEDS: Aspirin 81 MG TAB.CHEW PO SCH (09:32)
[2018-10-03] MEDS: Gabapentin 400 MG CAPSULE PO SCH ×3 (09:32→20:20)
[2018-10-03] MEDS: Insulin LISPRO 300 UNITS/3 ML VIAL SQ SCH ×4 (09:39→20:21)
--- NOTE | 2018-10-03 10:42 | Internal Med Progress Note ---
Hospitalist Progress Note - Encounter Date of Encounter: 10/03/18 Time of Encounter: 08:39 - Subjective Interval History: Patient seen and examined this morning at bedside. No acute overnight events. Denies new complaints. Denies any difficulty breathing chest pain abdominal pain nausea vomiting or diarrhea. Denies any urinary or bowel complaints. - Exam Vitals: Temp Pulse Resp BP Pulse Ox 97.4 F L 63 15 114/75 96 10/03/18 07:52 10/03/18 07:52 10/03/18 07:52 10/03/18 07:52 10/03/18 07:52 Exam: General: In no acute distress. obese Respiratory exam: CTAB. no accessory muscle use, rales, rhonchi, wheezes Cardiovascular exam: RRR, +S1, +S2. no murmur, gallop, rubs. GI/Abdominal exam: Non-tender, Non-distended, soft, no peritoneal signs. Extremities exam: no pedal edema, no calf tenderness Neurological exam: CN II-XII intact, AO X3, no focal deficits. Skin exam: No skin rash - Summary of Assessment and Plan Summary of Assessment and Plan: Assessment Atypical chest pain History of coronary artery disease with stenting in July LV thrombus Chronic CAD HTN Diabetes Peripheral neuropathy Plan - Currently without chest pain or shortness of breath. Recent cath with stent to RCA on 07/27/18. Surgery was considered but poor targets for revascularization. Also had LV thrombus and put on coumadin. - OMT per cardio on evaluation during this admission. Repeat echo with EF of 45- 50% and showed LV thrombus. c/w aspirin, Plavix, statin, imdur(dose increased than home) and metoprolol. Ranexa added. cardiology signed off - c/w heparin drip to bridge with coumadin given LV thrombus. Pharmacy to dose. Patient does not feel comortable using lovnex injections himself.. INR still subtherapeutic. goal 2-3. - c/w home duloxetin, gabapentin and Zanaflex pain regimen for back pain. - Continue with Levemir 10, SSI and Accu-Cheks. - To be discharged once INR therapeutic - Time Spent with Patient Total time spent is greater than 50% in coordination of care (as documented) at patient's floor/unit and/or counseling patient: Internal Medicine: Result - Labs CBC & Chem 7: 09/30/18 02:04 09/30/18 07:34 - ABG Interpretation ABG results: PT/INR, D-dimer PT 19.0 Seconds (9.4-12.1) H 10/03/18 04:48 Consult Discharge Plan - Plan Referrals: Michelle Barrios, ROBY [Primary Care Provider] -
[2018-10-03] MEDS: *HR* OxyCODONE/APAP 5/325 TABLET PO PRN (12:21)
[2018-10-03] MEDS ORDERED: 0.9 % Sodium Chloride 250 ML ONE (14:52)
[2018-10-03] MEDS ORDERED: *HR* Warfarin 3 MG TABLET PO ONE (18:00)
[2018-10-03] MEDS: Insulin DETEMIR 100 UNIT/ML X5UNITS SQ SCH (20:20)
[2018-10-03] MEDS: Heparin 25,000 UNIT/250 ML D5W 25,000 UNIT/250 ML IV.SOLN IVC SCH (20:22)
[2018-10-04] MEDS: *HR* OxyCODONE/APAP 5/325 TABLET PO PRN ×3 (00:01→23:58)
[2018-10-04 04:43] LABS: INR 1.9
[2018-10-04] MEDS: Gabapentin 400 MG CAPSULE PO SCH ×3 (08:24→20:52)
[2018-10-04] MEDS: Ranolazine 500 MG TAB.ER.12H PO SCH ×2 (08:24→20:52)
[2018-10-04] MEDS: Insulin LISPRO 300 UNITS/3 ML VIAL SQ SCH ×4 (08:25→20:51)
[2018-10-04] MEDS: Aspirin 81 MG TAB.CHEW PO SCH (08:25)
[2018-10-04] MEDS: Isosorbide MONOnitrate (24 HR) 30 MG TAB.ER.24H PO SCH (08:29)
--- NOTE | 2018-10-04 08:47 | Internal Med Progress Note ---
Hospitalist Progress Note - Encounter Date of Encounter: 10/04/18 Time of Encounter: 08:57 - Subjective Interval History: Patient examined and seen. No acute event overnight. Review the lab INR 1.9 and vitals. Patient denies nausea or fever chills headaches chest pain short of breath metaplasia hematemesis melena diarrhea - Exam Vitals: Temp Pulse Resp BP Pulse Ox 97.5 F L 68 16 117/76 96 10/04/18 06:58 10/04/18 06:58 10/04/18 06:58 10/04/18 06:58 10/04/18 06:58 Exam: General: In no acute distress. obese Respiratory exam: CTAB. Cardiovascular exam: RRR, +S1, +S2. no murmur GI/Abdominal exam: Non-tender, Non-distended, soft, no peritoneal signs. Extremities exam: no pedal edema, no calf tenderness Neurological exam: CN II-XII intact, AO X3, no focal deficits. Skin exam: No skin rash - Summary of Assessment and Plan Summary of Assessment and Plan: Assessment Atypical chest pain History of coronary artery disease with stenting in July LV thrombus Chronic CAD HTN Diabetes Peripheral neuropathy Plan - Currently without chest pain or shortness of breath. Recent cath with stent to RCA on 07/27/18. Surgery was considered but poor targets for revascularization. Also had LV thrombus and put on coumadin. - OMT per cardio on evaluation during this admission. Repeat echo with EF of 45- 50% and showed LV thrombus. c/w aspirin, Plavix, statin, imdur(dose increased than home) and metoprolol. Ranexa added. cardiology signed off - c/w heparin drip to bridge with coumadin given LV thrombus. Pharmacy to dose. Patient does not feel comortable using lovnex injections himself.. INR still subtherapeutic. goal 2-3. INR 1.9 status subtherapeutic. Will keep him from night while on heparin drip and repeat INR tomorrow. - c/w home duloxetin, gabapentin and Zanaflex pain regimen for back pain. - Continue with Levemir 10, SSI and Accu-Cheks. - To be discharged once INR therapeutic Morning lab ordered. - Time Spent with Patient Total time spent is greater than 50% in coordination of care (as documented) at patient's floor/unit and/or counseling patient: 25 - 35 minutes Plan of Care Discussed with: patient Internal Medicine: Result - Labs CBC & Chem 7: 09/30/18 02:04 09/30/18 07:34 - ABG Interpretation ABG results: PT/INR, D-dimer PT 21.0 Seconds (9.4-12.1) H 10/04/18 03:47 Consult Discharge Plan - Plan Referrals: Michelle Barrios, PATIENT RELATIONS LIAISON [Primary Care Provider] -
[2018-10-04] MEDS ORDERED: 0.9 % Sodium Chloride 250 ML ONE (10:23)
[2018-10-04] MEDS: Heparin 25,000 UNIT/250 ML D5W 25,000 UNIT/250 ML IV.SOLN IVC SCH (11:44)
[2018-10-04] MEDS ORDERED: *HR* Warfarin 3 MG TABLET PO ONE (18:00)
[2018-10-04] MEDS: Insulin DETEMIR 100 UNIT/ML X5UNITS SQ SCH (20:50)
[2018-10-05] MEDS ORDERED: 0.9 % Sodium Chloride 250 ML ONE (04:46)
[2018-10-05] MEDS: Heparin 25,000 UNIT/250 ML D5W 25,000 UNIT/250 ML IV.SOLN IVC SCH (04:53)
[2018-10-05 07:31] LABS: Basophils # 0.1 K/mcL (0.0-0.2); Basophils % 0.9 %; Eosinophils # 0.2 K/mcL (0.0-0.6); Eosinophils % 2.1 %; Hematocrit 36.9 % (37.5-50.1); Hemoglobin 12.2 g/dL (12.9-16.9); Immature Granulocytes % 0.2 % (0-4); Lymphocytes # 2.7 K/mcL (0.6-4.6); Lymphocytes % 33.1 %; Mean Corpuscular HGB Conc 33.1 g/dL (31.6-35.5); Mean Corpuscular Hemoglobin 28.3 pg (28.0-33.3); Mean Corpuscular Volume 85.6 fL (83.0-100.0); Mean Platelet Volume 10.5 fL (9.4-12.4); Monocytes # 0.8 K/mcL (0.0-1.3); Monocytes % 9.7 %; Neutrophils # 4.3 K/mcL (1.6-8.9); Platelet Count 310 K/mcL (140-400); Red Blood Count 4.31 M/mcL (4.19-5.50); Red Cell Distribution Width 12.3 % (11.5-14.5)
[2018-10-05 07:39] VITALS: BP 122/80
[2018-10-05 07:40] LABS: BUN/Creatinine Ratio 16 (6-26); Blood Urea Nitrogen 14 mg/dL (6-20); Calcium 9.1 mg/dL (8.6-10.3); Carbon Dioxide 30 mEq/L (23-29); Chloride 102 mEq/L (98-107); Glucose 170 mg/dL (70-105); INR 2.6; Osmolality,Calculated 292 (280-300); Potassium 4.3 mEq/L (3.5-5.1); Prothrombin Time 28.8 Seconds (9.4-12.1); Sodium 139 mEq/L (136-145); eGFR For Non-African Americans > 60 (> 60)
[2018-10-05] MEDS: Ranolazine 500 MG TAB.ER.12H PO SCH (08:49)
[2018-10-05] MEDS: Aspirin 81 MG TAB.CHEW PO SCH (08:50)
[2018-10-05] MEDS: Gabapentin 400 MG CAPSULE PO SCH (08:50)
[2018-10-05] MEDS: Isosorbide MONOnitrate (24 HR) 30 MG TAB.ER.24H PO SCH (08:50)
[2018-10-05] MEDS: Insulin LISPRO 300 UNITS/3 ML VIAL SQ SCH ×2 (08:51→11:57)
--- NOTE | 2018-10-05 09:03 | Discharge Summary ---
- NOTES TO OUTPATIENT PROVIDER Notes to Outpatient Provider: f/u PCP in 2-3 days- reduced the home insulin dose 15 qhs. needs BGL monitoring. f/u with cardiology in 1 wk. f/u with coumadin clniic in 2 days Orders not resulted at time of discharge: Pending orders 10/05/18 22:00 Heparin anti-factor XA UFH [COAG] Timed 10/06/18 04:00 PT/INR [Prothrombin Time INR] [COAG] AM 0400 10/07/18 04:00 PT/INR [Prothrombin Time INR] [COAG] AM 04010/08/18 04:00 PT/INR [Prothrombin Time INR] [COAG] AM 04010/09/18 04:00 PT/INR [Prothrombin Time INR] [COAG] AM 040 Date of Encounter: 10/05/18 Time of Encounter: 09:00 - Discharge Diagnosis (1) Left ventricular apical thrombus Priority: Primary Status: Acute (2) Chest pain Priority: Primary Status: Acute Qualifiers: Chest pain type: unspecified Qualified Code(s): R07.9 - Chest pain, unspeci fied (3) HTN (hypertension) Priority: Secondary Status: Acute Qualifiers: Hypertension type: essential hypertension Qualified Code(s): I10 - Essential (primary) hypertension (4) CAD (coronary artery disease) Priority: Secondary Status: Acute Qualifiers: Coronary Disease-Associated Artery/Lesion type: unspecified vessel or lesion type Associated angina: with stable angina Qualified Code(s): I25.118 - Atherosclerotic heart disease of [place] coronary artery with other forms of angina pectoris (5) Diabetes Priority: Secondary Status: Acute Qualifiers: Diabetes mellitus type: type 2 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 Gaspar is a 48 year old male got admitted with chest pain and SOB. at [facility] Recent cath with stent to RCA on 07/27/18. Surgery was considered but poor targets for revascularization. Also had LV thrombus and put on coumadin. during this hospitalization, Serial troponin measurements are negative. cardio consulted-Recommend continue medical therapy Repeat echo with EF of 45-50% and showed LV thrombus. c/w aspirin, Plavix, statin, imdur(dose increased than home) and metoprolol. Ranexa added. cardiology signed off. bridging heparin therapy were started and now INR 2.6. will dc pt on home dose coumadiin with opd f/u as mentioned. pt is clinically stable with no CP and SOB at the time of dc. Discharge discussed with: patient, nurse, social work - Time Spent with Patient Total time spent providing and/or coordinating discharge services: Time spent: Less than 30 minutes - Discharge Medications Prescriptions: New Isosorbide MONOnitrate (24 HR) [Imdur] 90 mg PO DAILY #30 tab.er.24h Metoprolol [Lopressor] 12.5 mg PO BID #60 tablet Ranolazine [Ranexa] 500 mg PO BID #60 tab.er.12h Continued Loratadine [Claritin] 10 mg PO DAILY Cyanocobalamin/Folic AC/Vit B6 [Folbee Tablet] 1 tab PO DAILY Gabapentin 800 mg PO TID Insulin ASPART [Novolog Flexpen] 20 unit SQ QID Omeprazole [PriLOSEC] 40 mg PO BID Albuterol Sulfate [Ventolin Hfa] 2 puff IH Q6H PRN PRN Reason: Shortness Of Breath DULoxetine [Cymbalta] 30 mg PO DAILY Lisinopril [Zestril] 5 mg PO DAILY #30 tablet Nitroglycerin 0.4 mg SL Q5M PRN #30 tab.subl PRN Reason: Chest Pain Atorvastatin Calcium 80 mg PO HS #30 tablet Aspirin 81 mg PO DAILY tab.chew Clopidogrel [Plavix] 75 mg PO DAILY Warfarin [Coumadin] 6 mg PO SUMOTUWETHSA Warfarin [Coumadin] 9 mg PO FR Tizanidine HCl [Zanaflex] 4 mg PO HS Changed Insulin Glargine,Hum.rec.anlog [[place] Solostar] 15 units SQ HS #0 Discontinued Isosorbide MONOnitrate (24 HR) [Imdur] 60 mg PO DAILY Home Medications: Loratadine [Claritin] 10 mg PO DAILY 09/30/15 [History] Tizanidine HCl [Zanaflex] 4 mg PO HS 05/15/17 [History] Albuterol Sulfate [Ventolin Hfa] 2 puff IH Q6H PRN 07/25/18 [History] Cyanocobalamin/Folic AC/Vit B6 [Folbee Tablet] 1 tab PO DAILY 07/25/18 [History] DULoxetine [Cymbalta] 30 mg PO DAILY 07/25/18 [History] Gabapentin 800 mg PO TID 07/25/18 [History] Insulin ASPART [Novolog Flexpen] 20 unit SQ QID 07/25/18 [History] Omeprazole [PriLOSEC] 40 mg PO BID 07/25/18 [History] Aspirin 81 mg PO DAILY tab.chew 07/27/18 [Rx] Atorvastatin Calcium 80 mg PO HS #30 tablet 07/27/18 [Rx] Lisinopril [Zestril] 5 mg PO DAILY #30 tablet 07/27/18 [Rx] Nitroglycerin 0.4 mg SL Q5M PRN #30 tab.subl 07/27/18 [Rx] Clopidogrel [Plavix] 75 mg PO DAILY 08/27/18 [History] Warfarin [Coumadin] 6 mg PO SUMOTUWETHSA 10/01/18 [History] Warfarin [Coumadin] 9 mg PO FR 10/02/18 [History] Insulin Glargine,Hum.rec.anlog [Toujeo Solostar] 15 units SQ HS #0 10/05/18 [Rx] Isosorbide MONOnitrate (24 HR) [Imdur] 90 mg PO DAILY #30 tab.er.24h 10/05/18 [Rx] Metoprolol [Lopressor] 12.5 mg PO BID #60 tablet 10/05/18 [Rx] Ranolazine [Ranexa] 500 mg PO BID #60 tab.er.12h 10/05/18 [Rx] Allergies/Adverse Reactions: Allergy/AdvReac Type Severity Reaction Status Date / Time No Known Allergies Allergy Verified 09/30/18 16:20 Date of admission: 10/04/18 14:56 Primary care physician: Michelle Barrios CNP Consults: 09/29/18 23:40 Consult to Cardiology [CONS] Routine Comment: Consulting Provider: [facility] [place] Reason for Consult: Chest pain, recent stent placement. Severe CAD, called from ER Call Completed: Yes - Constitutional Vitals: Temp Pulse Resp BP Pulse Ox 97.6 F 65 15 122/80 98 10/05/18 07:14 10/05/18 07:14 10/05/18 07:14 10/05/18 07:14 10/05/18 07:14 General appearance: Present: cooperative, A&O X 3, pleasant, no acute distress, answers questions appropriately Exam: General: In no acute distress. obese Respiratory exam: CTAB. Cardiovascular exam: RRR, +S1, +S2. no murmur GI/Abdominal exam: Non-tender, Non-distended, soft, no peritoneal signs. Extremities exam: no pedal edema, no calf tenderness Neurological exam: CN II-XII intact, AO X3, no focal deficits. Skin exam: No skin rash - Patient Status Disposition: Home, Self-Care Condition: Good Overall status at discharge: patient is back to baseline - Discharge Instructions Follow Up With: [facility] [Other] (Coumadin Clinic) Michelle Barrios CNP [Primary Care Provider] - Forms: ED Satisfaction Letter - Diet and Activity Activity: increase activity as tolerated
[2018-10-05] MEDS: *HR* OxyCODONE/APAP 5/325 TABLET PO PRN (11:57)
== END 2018-10-05 13:42 | disposition home or self-care (01) | DRG 198 ==
LOC: 3ANU 18:11 → EMEROOARM 18:11 → SUATTDRO 22:22 → 3ANU 09-30 01:18
PROVIDERS: ADMIT Internal Medicine; ATTEND Internal Medicine

== ENCOUNTER 2018-10-29 20:15 | Inpatient (IN) ==
[2018-10-29] MEDS ORDERED: Nitroglycerin 25 MG/250 ML INFUS..BTL IVC ONE (20:25)
[2018-10-29] MEDS ORDERED: *HR* FentaNYL (PF) 100 MCG/2 ML VIAL ONE (20:25)
[2018-10-29] MEDS ORDERED: Aspirin 81 MG TAB.CHEW PO ONE (20:26)
[2018-10-29] MEDS ORDERED: *HR* FentaNYL (PF) 100 MCG/2 ML VIAL IVP ONE ×2 (20:27→20:29)
[2018-10-29] MEDS ORDERED: Nitroglycerin 25 MG/250 ML INFUS..BTL IVC SCH ×2 (20:30)
--- NOTE | 2018-10-29 20:34 | Emergency Department Note ---
Disposition Clinical Impression: Chest pain Qualifiers: Chest pain type: unspecified Qualified Code(s): R07.9 - Chest pain, unspecified Disposition: Admitted As Inpatient Condition: Fair Time of Disposition: 21:53 Chest Pain HPI - General Chief Complaint: ED Chest Pain Stated Complaint: Chest pain Time Seen by Provider: 10/29/18 20:16 Source: patient, EMS Mode of arrival: EMS Limitations: no limitations Vital Signs Reviewed: Yes Nursing Notes Reviewed: Yes - History of Present Illness HPI Narrative: Patient is a 48-year-old male who is presenting with chest pain. Patient has known history of CAD, hypertension and hyperlipidemia. In July 2018, patient had similar chest pain and therefore came into the ER and had to have a stent placed to the distal RCA. Patient states the pain he is currently expressing is very similar. Onset of chest pain was earlier this morning with associated shortness of breath, symptoms are exertional, approximately 10 hours ago, has been intermittent in nature described as heaviness in the middle of his chest with radiation into his left jaw and left arm with numbness and tingling and pain into his back. He has some nausea without vomiting as well as diaphoresis. Patient currently is on aspirin 81 mg a day as well as Plavix 75 mg he did take this this morning. Per EMS, they did give him 1 nitroglycerin which did take his pain down from a 7 out of 10 to a 4 out of 10 on arrival, they also gave him a total 324 of aspirin. Severity scale (1-10): 8 - Related Data Home Medications Medication Instructions Recorded Confirmed Loratadine [Claritin] 10 mg PO DAILY 09/30/15 10/29/18 Tizanidine HCl [Zanaflex] 4 mg PO HS 05/15/17 10/29/18 Albuterol Sulfate [Ventolin Hfa] 2 puff IH Q6H PRN 07/25/18 10/29/18 Cyanocobalamin/Folic AC/Vit B6 1 tab PO DAILY 07/25/18 10/29/18 [Folbee Tablet] DULoxetine [Cymbalta] 30 mg PO DAILY 07/25/18 10/29/18 Gabapentin 800 mg PO TID 07/25/18 10/29/18 Insulin ASPART [Novolog Flexpen] 20 unit SQ QIDAC 07/25/18 10/29/18 Omeprazole [PriLOSEC] 40 mg PO BID 07/25/18 10/29/18 Clopidogrel [Plavix] 75 mg PO DAILY 08/27/18 10/29/18 Warfarin [Coumadin] 6 mg PO SUMOTUWETHSA 10/01/18 10/29/18 Warfarin [Coumadin] 9 mg PO FR 10/02/18 10/29/18 Lisinopril [Zestril] 10 mg PO DAILY 10/29/18 10/29/18 Previous Rx's Medication Instructions Recorded Aspirin 81 mg PO DAILY tab.chew 07/27/18 Atorvastatin Calcium 80 mg PO HS #30 tablet 07/27/18 Nitroglycerin 0.4 mg SL Q5M PRN #30 tab.subl 07/27/18 Insulin Glargine,Hum.rec.anlog 15 units SQ HS #0 10/05/18 [[place]o Solostar] Isosorbide MONOnitrate (24 HR) 90 mg PO DAILY #30 tab.er.24h 10/05/18 [Imdur] Metoprolol [Lopressor] 12.5 mg PO BID #60 tablet 10/05/18 Ranolazine [Ranexa] 500 mg PO BID #60 tab.er.12h 10/05/18 Allergies Allergy/AdvReac Type Severity Reaction Status Date / Time No Known Allergies Allergy Verified 09/30/18 16:20 All systems ED: reviewed and negative except as stated. Review of Systems: As Per HPI Constitutional: Denies: fever, chills ENT ED: Denies: congestion Cardiovascular: Reports: chest pain, dyspnea on exertion. Denies: palpitations, syncope Respiratory: Reports: dyspnea. Denies: cough, wheezes Gastrointestinal: Reports: nausea. Denies: abdominal pain, vomiting, diarrhea, hematemesis, melena, hematochezia Genitourinary: Denies: urgency, dysuria Musculoskeletal: Denies: back pain Integumentary: Denies: rash Neurological: Denies: headache, weakness, confusion Psychiatric: Denies: anxiety Endocrine: Denies: fatigue Chest Pain PMH - Past Medical History Medical history: Reports: coronary artery disease, diabetes, hypertension Surgical history: Reports: no surgical history Psychiatric history: Reports: no psych history - Social History Smoking Status: Never smoker Alcohol use: Reports: none Drug use: Reports: none Physical Exam General: Conversant. No apparent distress. Follow commands. Appears stated age. Neck: No JVD. Trachea midline. Neck supple. Eyes: PERRL. No scleral icterus. HENT: Normocephalic and atraumatic. Moist mucus membranes. Cardiovascular: Regular rate and rhythm. Normal S1 and S2. No murmurs a ppreciated. Normal capillary refill. Extremities well perfused with 2+ distal pulses bilaterally. No edema. Pulmonary: Normal and equal breath sounds bilaterally, anteriorly and posteriorly. No wheezes, rales, or rhonchi. Not in respiratory distress. Speaks in full sentences. Abdomen: Soft, nondistended, without tenderness. No bruits or masses. No guarding or rebound. Neuro: Alert and oriented x3. No slurred speech. No focal deficits noted. Skin: No rashes noted on visualized skin. Musculoskeletal: No bony abnormalities visualized. Moves all extremities. Psych: Normal mood. Pleasant. Makes appropriate eye contact. - General Limitations: no limitations General appearance: alert, in no apparent distress Course Vital Signs Temperature 98.5 F 10/29/18 20:20 Pulse Rate 78 10/29/18 20:20 Respiratory Rate 18 10/29/18 20:20 Blood Pressure 154/93 10/29/18 20:20 O2 Sat by Pulse Oximetry 99 10/29/18 20:20 Temperature 98.5 F 10/29/18 20:20 Pulse Rate 74 10/29/18 21:05 Respiratory Rate 20 10/29/18 21:05 Blood Pressure 133/99 10/29/18 21:05 O2 Sat by Pulse Oximetry 98 10/29/18 21:05 Oxygen Delivery Oxygen Delivery Room Air Chest Pain - [facility] Narrative Medical decision making narrative: Patient is a 48-year-old male who is presenting for chest pain. Patient has known history of CAD status post stenting 1 currently on aspirin, Plavix as well as Coumadin. Onset of chest pain was earlier today, intermittent in nature. EMS arrived reporting stable vital signs, was given 1 nitroglycerin with significant decrease in chest pain, he was also given 324 mg of aspirin. On arrival, there was ST elevation in 2, 3 and aVF, however upon further review of old EKG revealed that this is stable and unchanged from prior EKG in September. We did contact Dr. Lundberg, the on-call club room attendant at 2030, reviewed EKGs and states that this does not appear to be a STEMI and will medically treat with admission. Further blood work including CBC, BMP and troponin as well as chest x-ray performed. Patient was started on a nitroglycerin drip with relief. Blood pressures have been stable. He is also given a liter of fluids. CBC, BMP as well as troponin are all within normal limits. Chest x-ray shows no acute intracardiac or pulmonary process. At this point in time, patient will be admitted further ACS evaluation. Upon further discussion with hospitalist, Dr. ePña, low dose ACS heparin will be started. - Medical Records Medical records reviewed: Yes I reviewed the patient's medical records. - Lab Data Lab results reviewed: Yes I reviewed the patient's lab results. Result diagrams: 10/29/18 20:30 10/29/18 20:30 Lab Results 10/29/18 10/29/18 10/29/18 Range/Units 20:30 20:30 20:30 WBC 9.2 (4.3-11.1) K/mcL RBC 4.69 (4.19-5.50) M/mcL Hgb 13.2 (12.9-16.9) g/dL Hct 40.4 (37.5-50.1) % MCV 86.1 (83.0-100.0) fL MCH 28.1 (28.0-33.3) pg MCHC 32.7 (31.6-35.5) g/dL RDW 12.9 (11.5-14.5) % Plt Count 369 (140-400) K/mcL MPV 10.5 (9.4-12.4) fL Immature Gran % 0.3 (0-4) % Seg Neutrophils % 58.0 % Lymphocytes % 29.5 % Monocytes % 9.2 % Eosinophils % 2.2 % Basophils % 0.8 % Neutrophils # 5.3 (1.6-8.9) K/mcL Lymphocytes # 2.7 (0.6-4.6) K/mcL Monocytes # 0.9 (0.0-1.3) K/mcL Eosinophils # 0.2 (0.0-0.6) K/mcL Basophils # 0.1 (0.0-0.2) K/mcL PT 19.6 H (9.4-12.1) Seconds INR 1.7 APTT 35.6 (26.0-36.0) Seconds Sodium 131 L (136-145) mEq/L Potassium 4.4 (3.5-5.1) mEq/L Chloride 101 (98-107) mEq/L Carbon Dioxide 29 (23-29) mEq/L BUN 12 (6-20) mg/dL Creatinine 0.82 (0.70-1.30) mg/dL Est GFR ( Amer) > 60 (> 60) Est GFR (Non-Af Amer) > 60 (> 60) BUN/Creatinine Ratio 15 (6-26) Glucose 306 H (70-105) mg/dL Calculated Osmolality 283 (280-300) Calcium 9.5 (8.6-10.3) mg/dL Troponin I < 0.03 (< 0.04) ng/mL - Radiology Data Radiology results reviewed: Yes I reviewed the patient's radiology results. Chest X-Ray 10/29/18 20:26 IMPRESSION: Stable portable study. D/ / Jumana Quinn Cha, MD / Jumana Quinn Cha, MD Interpreting Provider: Jumana Quinn Cha, MD - EKG Data EKG attestation: Yes I reviewed and interpreted this EKG. EKG results narrative: EKG obtained on arrival, showing a [address] elevation in leads II, III, and F aVF, without significant ST depression in further leads. On review of old EKG obtained in September 2018, appears relatively unchanged Heart Score - Score History: Highly Suspicious EKG: Non Specific repolarisation Disturbance Age: 45-65 Risk Factors: Equal/Greater than 3 risk factor or history of atherosclerotic disease Troponin: Less than normal limit HEART Score Total: 6 Critical Care Time Critical Care Time: Yes Total Critical Care Time: 45 Attestation: Critical care performed: Time is exclusive of separately billable procedures. Time includes: direct patient care, patient reassessment, coordination of patient care, interpretation of data (laboratory data, radiology data, and respiratory data), review of patient's medical records, medical consultation and documentation of patient care. Procedures included in critical care time: Procedures excluded from critical care time: S.B.A.R. - S.B.A.R. Situation: Demographics, MOA Background: Presenting Complaint, Relevant PMH, Meds, & Allergies Assessment: Vital Signs, Course and respsone to treatment, Exam Concerns, Patient/Family Expectation, Pertinant Lab Results, Outstanding Labs Recommendation: Barrier(s) to disposition, Recommendation based on pending studies, treatments, or consults Chad Report Given to: Dr. Casey Bonilla Repor Time: 22:32 (accepted) Attestation Statement - Attestation Attestation: I, Cipriano Barriga DO, examined this patient [id number] and my medical decision-making was reviewed with Dr. Amanda Bolaños , Resident Physician. I agree with the documented findings, disposition and treatment plan as described except to the extent set forth below. I personally supervised and was present for the clark/critical portions of the procedures completed by the resident documented below. Please see my progress notes for details. 45 minutes of critical care applied secondary to electric glycerin drip multidisciplinary intervention
[2018-10-29 20:46] LABS: Basophils # 0.1 K/mcL (0.0-0.2); Basophils % 0.8 %; Eosinophils # 0.2 K/mcL (0.0-0.6); Eosinophils % 2.2 %; Hematocrit 40.4 % (37.5-50.1); Hemoglobin 13.2 g/dL (12.9-16.9); Immature Granulocytes % 0.3 % (0-4); Lymphocytes # 2.7 K/mcL (0.6-4.6); Lymphocytes % 29.5 %; Mean Corpuscular HGB Conc 32.7 g/dL (31.6-35.5); Mean Corpuscular Hemoglobin 28.1 pg (28.0-33.3); Mean Corpuscular Volume 86.1 fL (83.0-100.0); Mean Platelet Volume 10.5 fL (9.4-12.4); Monocytes # 0.9 K/mcL (0.0-1.3); Monocytes % 9.2 %; Neutrophils # 5.3 K/mcL (1.6-8.9); Platelet Count 369 K/mcL (140-400); Red Blood Count 4.69 M/mcL (4.19-5.50); Red Cell Distribution Width 12.9 % (11.5-14.5); White Blood Count 9.2 K/mcL (4.3-11.1)
[2018-10-29 20:53] LABS: INR 1.7; Prothrombin Time 19.6 Seconds (9.4-12.1)
[2018-10-29 20:56] LABS: Activated Partial Thrombo Time 35.6 Seconds (26.0-36.0)
[2018-10-29 21:06] LABS: BUN/Creatinine Ratio 15 (6-26); Blood Urea Nitrogen 12 mg/dL (6-20); Calcium 9.5 mg/dL (8.6-10.3); Carbon Dioxide 29 mEq/L (23-29); Chloride 101 mEq/L (98-107); Glucose 306 mg/dL (70-105); Osmolality,Calculated 283 (280-300); Potassium 4.4 mEq/L (3.5-5.1); Sodium 131 mEq/L (136-145); eGFR For African Americans > 60 (> 60); eGFR For Non-African Americans > 60 (> 60)
[2018-10-29 21:07] LABS: Troponin I < 0.03 ng/mL (< 0.04)
--- NOTE | 2018-10-29 21:09 | Emergency Department Note ---
Disposition Clinical Impression: Chest pain Qualifiers: Chest pain type: unspecified Qualified Code(s): R07.9 - Chest pain, unspecified Disposition: Admitted As Inpatient Condition: Fair Referrals: Michelle Barrios CNP [Advanced Practice Nurse] - Forms: ED Satisfaction Letter Time of Disposition: 22:05 General Adult HPI - General Chief complaint: ED Chest Pain Stated complaint: Chest pain Time Seen by Provider: 10/29/18 20:16 Source: EMS Limitations: no limitations - History of Present Illness Pain Scale: 8 - Related Data Home Medications Medication Instructions Recorded Confirmed Loratadine [Claritin] 10 mg PO DAILY 09/30/15 10/29/18 Tizanidine HCl [Zanaflex] 4 mg PO HS 05/15/17 10/29/18 Albuterol Sulfate [Ventolin Hfa] 2 puff IH Q6H PRN 07/25/18 10/29/18 Cyanocobalamin/Folic AC/Vit B6 1 tab PO DAILY 07/25/18 10/29/18 [Folbee Tablet] DULoxetine [Cymbalta] 30 mg PO DAILY 07/25/18 10/29/18 Gabapentin 800 mg PO TID 07/25/18 10/29/18 Insulin ASPART [Novolog Flexpen] 20 unit SQ QIDAC 07/25/18 10/29/18 Omeprazole [PriLOSEC] 40 mg PO BID 07/25/18 10/29/18 Clopidogrel [Plavix] 75 mg PO DAILY 08/27/18 10/29/18 Warfarin [Coumadin] 6 mg PO SUMOTUWETHSA 10/01/18 10/29/18 Warfarin [Coumadin] 9 mg PO FR 10/02/18 10/29/18 Lisinopril [Zestril] 10 mg PO DAILY 10/29/18 10/29/18 Previous Rx's Medication Instructions Recorded Aspirin 81 mg PO DAILY tab.chew 07/27/18 Atorvastatin Calcium 80 mg PO HS #30 tablet 07/27/18 Nitroglycerin 0.4 mg SL Q5M PRN #30 tab.subl 07/27/18 Insulin Glargine,Hum.rec.anlog 15 units SQ HS #0 10/05/18 [[place] Solostar] Isosorbide MONOnitrate (24 HR) 90 mg PO DAILY #30 tab.er.24h 10/05/18 [Imdur] Metoprolol [Lopressor] 12.5 mg PO BID #60 tablet 10/05/18 Ranolazine [Ranexa] 500 mg PO BID #60 tab.er.12h 10/05/18 Allergies Allergy/AdvReac Type Severity Reaction Status Date / Time No Known Allergies Allergy Verified 09/30/18 16:20 Past Medical History - Past Medical History Medical history: Reports: coronary artery disease, diabetes, hypertension Surgical history: Reports: no surgical history Psychiatric history: Reports: no psych history - Social History Smoking Status: Never smoker Smokeless Tobacco Status: No Alcohol use: Reports: none Drug use: Reports: none Physical Exam - General Limitations: no limitations General appearance: alert, in no apparent distress Course Vital Signs Temperature 98.5 F 10/29/18 20:20 Pulse Rate 78 10/29/18 20:20 Respiratory Rate 18 10/29/18 20:20 Blood Pressure 154/93 10/29/18 20:20 O2 Sat by Pulse Oximetry 99 10/29/18 20:20 Temperature 98.5 F 10/29/18 20:20 Pulse Rate 74 10/29/18 21:05 Respiratory Rate 20 10/29/18 21:05 Blood Pressure 133/99 10/29/18 21:05 O2 Sat by Pulse Oximetry 98 10/29/18 21:05 Oxygen Delivery Oxygen Delivery Room Air Medical Decision Making - Lab Data Result diagrams: 10/29/18 20:30 10/29/18 20:30 Lab Results 10/29/18 10/29/18 10/29/18 Range/Units 20:30 20:30 20:30 WBC 9.2 (4.3-11.1) K/mcL RBC 4.69 (4.19-5.50) M/mcL Hgb 13.2 (12.9-16.9) g/dL Hct 40.4 (37.5-50.1) % MCV 86.1 (83.0-100.0) fL MCH 28.1 (28.0-33.3) pg MCHC 32.7 (31.6-35.5) g/dL RDW 12.9 (11.5-14.5) % Plt Count 369 (140-400) K/mcL MPV 10.5 (9.4-12.4) fL Immature Gran % 0.3 (0-4) % Seg Neutrophils % 58.0 % Lymphocytes % 29.5 % Monocytes % 9.2 % Eosinophils % 2.2 % Basophils % 0.8 % Neutrophils # 5.3 (1.6-8.9) K/mcL Lymphocytes # 2.7 (0.6-4.6) K/mcL Monocytes # 0.9 (0.0-1.3) K/mcL Eosinophils # 0.2 (0.0-0.6) K/mcL Basophils # 0.1 (0.0-0.2) K/mcL PT 19.6 H (9.4-12.1) Seconds INR 1.7 APTT 35.6 (26.0-36.0) Seconds Sodium 131 L (136-145) mEq/L Potassium 4.4 (3.5-5.1) mEq/L Chloride 101 (98-107) mEq/L Carbon Dioxide 29 (23-29) mEq/L BUN 12 (6-20) mg/dL Creatinine 0.82 (0.70-1.30) mg/dL Est GFR ( Amer) > 60 (> 60) Est GFR (Non-Af Amer) > 60 (> 60) BUN/Creatinine Ratio 15 (6-26) Glucose 306 H (70-105) mg/dL Calculated Osmolality 283 (280-300) Calcium 9.5 (8.6-10.3) mg/dL Troponin I < 0.03 (< 0.04) ng/mL Attestation Statement - Attestation Attestation: I, Cipriano Barriga DO, examined this patient [id number] and my medical decision-making was reviewed with Dr. Amanda Bolaños , Resident Physician. I agree with the documented findings, disposition and treatment plan as described except to the extent set forth below. I personally supervised and was present for the clark/critical portions of the procedures completed by the resident documented below. Please see my progress notes for details. 48-year-old male presents by EMS for evaluation of chest pain. Patient was recently seen in July and then again in September for similar issues. He had catheterization completed and recommendations for possible bypass procedure. Patient is on maximal home therapy including nitroglycerin aspirin and Plavix. Patient had reemergence of symptoms yesterday and has been persistent now this time. EKG in transport did show chronic morphology including Q waves in slight ST elevation 23 aVF with T-wave inversion in aVL. STEMI alert was not called at that time. Patient arrived to the emergency room in stable medical condition. He did not show any acute signs of distress outside of his described pain. His vital signs were again checked and they were stable. Patient is alert he is oriented he is answering questions. Lungs are clear heart is regular. Abdomen is soft no pulsatile masses or lesions. EKG was collected immediately on arrival and shows identical morphology. This is compared to previous EKG in September as well as July with no acute changes. We did run a by the on-call telephone directory distributor driver Dr. Hilaria Lundberg and she agreed that this does not meet STEMI criteria at this point but is concerning. Medical management will be established at this time. Patient will be started on nitroglycerin glycerin drip and pain medication will be given. Heparin will be started as well. Patient otherwise is stable. The EKG was reviewed by myself and documented the resident physician's note. See detailed documentation the physical exam, medical intervention, medical decision-making and disposition in the resident physician's note. 2135 Troponin is negative. Patient symptoms are gone down to a 2 after pain medi cation nitroglycerin. Patient is otherwise asymptomatic sitting upright in bed testing on his phone. The patient was discussed with the hospitalist Dr. leo who recommended heparin being started this time considering the patient is not therapeutic on his Coumadin. Patient is otherwise in no distress. Appropriate medical management has been established at this time. We will continue to treat symptoms until his pain is gone. Initial EKG again was discussed and reviewed with the on-call sewer builder Dr. Hilaria Lundberg. Patient will be monitored here in the emergency department until the admission process is completed.
[2018-10-29] MEDS ORDERED: *HR* Heparin 5,000 UNIT/ML VIAL IVP ONE (21:51)
[2018-10-29] MEDS ORDERED: *HR* Heparin 5,000 UNIT/ML VIAL IVP PRN ×2 (21:51)
[2018-10-29] MEDS ORDERED: Nitroglycerin 0.4 MG TAB.SUBL SL PRN (22:09)
[2018-10-29] MEDS ORDERED: Dextrose Gel 15 GM/37.5 ML TUBE PO PRN ×2 (22:14)
[2018-10-29] MEDS ORDERED: *HR* Dextrose 50 % in Water (Syg) 50 ML SYRINGE IVP PRN (22:14)
[2018-10-29] MEDS ORDERED: tiZANidine 4 MG TABLET PO SCH (22:15)
--- NOTE | 2018-10-29 22:49 | Internal Med History&Physical ---
Date of Encounter: 10/29/18 Time of Encounter: 22:48 Internal Medicine - H&P: HPI Chief complaint: chest pain Admitted From: Home Plans for Post Hospital Care: Home History of present illness: Chaz Gaspar is a 48-year-old man with hypertension, diabetes and coronary artery disease who was admitted here in July 2018 for ACS at which time he was seen to have severe three-vessel coronary artery disease on cardiac cath at which time he was deemed to be a poor candidate for CABG because of the lack of poor vasculature with recommendation to be seen at [facility] or [facility]. He subsequently had a stent placed here was subsequently seen at [facility] at which time he was found to have an LV thrombus and placed on warfarin. He was last seen here about 3 weeks ago for chest pain at which time his home medications were o ptimized. He comes back in today complaining of chest pain that started around 2:30 PM which he says he typically has on and off however on this episode it persisted over time and he noticed tingling in his upper extremities. It was associated with dyspnea and nausea as well as diaphoresis. EMS gave him 1 sublingual nitroglycerin which brought his pain down from 7 to 4 out of 10 as well as loading dose aspirin. Here he was placed on nitroglycerin drip due to ongoing chest pain as well as multiple doses of fentanyl. His EKG was seen and reviewed which shows Q waves in the anterior leads concerning for prior anteroseptal infarct and subtle ST elevations in the inferior leads which in comparison to previous studies is not a new finding. Interventional cardiology was consulted with recommendations to continue medical management. Vitals: Reviewed General: Unkempt, appears older than stated age sitting up in bed in no acute distress. Skin: Warm and diaphoretic HEENT: Moist mucous membranes. No conjunctivae pallor. Neck: No lymphadenopathy. No JVD. No carotid bruits. No palpable thyroid. Chest: Normal thoracic expansion. Normal breath sounds. Heart: Normal S1 & S2; rhythmic. Abdomen: Non-distended, soft and non-tender to palpation. No peritoneal reaction. Extremities: No clubbing, cyanosis or edema. No calf tenderness. Normal distal pulses. Neurological: Awake, alert and oriented to person, place and time. No focal deficits. Psych: Affect appropriate. Assessment/Plan 1. Unstable angina: Will start heparin drip in addition to continuing nitroglyicerin. Will monitor on telemetry and for chest pain resolution. He will be evaluated by cardiology in the morning. Continue statin/ DAPT. 2. LV thrombus: INR is subtherapeutic. Heparin will be started for bridging until warfarin is resumed and therapeutic levels achieved. 3. CAD: Currently of medical therapy. Unclear how adherent he is given his social conditions. Will continue medications as last recommended by cardiology. 4. Diabetes: Poorly controlled. Will be on insulin sliding scale and basal. 5. Hypertension: On lisinopril. Past Med Surg Social Fam HX - Past Medical History Medical history: coronary artery disease, diabetes, hypertension Additional medical history: PE Psychiatric history: no psych history - Past Surgical History Surgical History: no surgical history Additional surgical history: stent - Social History Smoking Status: Never smoker Smokeless Tobacco Status: No Alcohol use: none Drug use: none - Family History Mother Living Status: Hx Family Cardiac Disorders: Yes Hx Family Endocrine Disorder: Yes Internal Medicine - H&P: Meds Loratadine [Claritin] 10 mg PO DAILY 09/30/15 [History] Tizanidine HCl [Zanaflex] 4 mg PO HS 05/15/17 [History] Albuterol Sulfate [Ventolin Hfa] 2 puff IH Q6H PRN 07/25/18 [History] Cyanocobalamin/Folic AC/Vit B6 [Folbee Tablet] 1 tab PO DAILY 07/25/18 [History] DULoxetine [Cymbalta] 30 mg PO DAILY 07/25/18 [History] Gabapentin 800 mg PO TID 07/25/18 [History] Insulin ASPART [Novolog Flexpen] 20 unit SQ QIDAC 07/25/18 [History] Omeprazole [PriLOSEC] 40 mg PO BID 07/25/18 [History] Aspirin 81 mg PO DAILY tab.chew 07/27/18 [Rx] Atorvastatin Calcium 80 mg PO HS #30 tablet 07/27/18 [Rx] Nitroglycerin 0.4 mg SL Q5M PRN #30 tab.subl 07/27/18 [Rx] Clopidogrel [Plavix] 75 mg PO DAILY 08/27/18 [History] Warfarin [Coumadin] 6 mg PO SUMOTUWETHSA 10/01/18 [History] Warfarin [Coumadin] 9 mg PO FR 10/02/18 [History] Insulin Glargine,Hum.rec.anlog [Y[place]elin [place]] 15 units SQ HS #0 10/05/18 [Rx] Isosorbide MONOnitrate (24 HR) [Imdur] 90 mg PO DAILY #30 tab.er.24h 10/05/18 [Rx] Metoprolol [Lopressor] 12.5 mg PO BID #60 tablet 10/05/18 [Rx] Ranolazine [Ranexa] 500 mg PO BID #60 tab.er.12h 10/05/18 [Rx] Lisinopril [Zestril] 10 mg PO DAILY 10/29/18 [History] Allergy/AdvReac Type Severity Reaction Status Date / Time No Known Allergies Allergy Verified 09/30/18 16:20 All Systems PM: A 10-system review of systems was performed and is negative for pertinent findings except as documented above in the HPI. - Constitutional Vitals: Temp Pulse Resp BP Pulse Ox 98.5 F 74 20 133/99 98 10/29/18 20:20 10/29/18 21:05 10/29/18 21:05 10/29/18 21:05 10/29/18 21:05 Exam: . Internal Med - H&P Results - Labs CBC & Chem 7: 10/29/18 20:30 10/29/18 20:30 Labs: Short CBC 10/29/18 Range/Units 20:30 WBC 9.2 (4.3-11.1) K/mcL Hgb 13.2 (12.9-16.9) g/dL Hct 40.4 (37.5-50.1) % Plt Count 369 (140-400) K/mcL Neutrophils # 5.3 (1.6-8.9) K/mcL BMP 10/29/18 20:30 Sodium 131 L Potassium 4.4 Chloride 101 Carbon Dioxide 29 BUN 12 Creatinine 0.82 Glucose 306 H Calcium 9.5 Cardiac Enzymes 10/29/18 Range/Units 20:30 Troponin I < 0.03 (< 0.04) ng/mL - Impressions ITS Impressions Chest X-Ray 10/29/18 20:26 IMPRESSION: Stable portable study. D/ / Jumana Quinn Cha, MD / Jumana Quinn Cha, MD Interpreting Provider: Jumana Quinn Cha, MD - Time Spent With Patient Total time spent is greater than 50% in coordination of care (as documented) at patient's floor/unit and/or counseling patient: Greater than 35 minutes
[2018-10-29] MEDS: Heparin 25,000 UNIT/250 ML D5W 25,000 UNIT/250 ML IV.SOLN IVC SCH (23:12)
[2018-10-30] MEDS: Insulin DETEMIR 100 UNIT/ML X5UNITS SQ SCH ×2 (01:33→21:09)
[2018-10-30] MEDS: Insulin LISPRO 300 UNITS/3 ML VIAL SQ SCH ×7 (01:33→21:09)
[2018-10-30] MEDS ORDERED: traMADol 50 MG TABLET PO PRN (04:21)
[2018-10-30] MEDS ORDERED: *HR* OxyCODONE Immed Rel 5 MG TABLET PO PRN (04:21)
[2018-10-30] MEDS ORDERED: Naloxone 0.4 MG/ML INJ IVP PRN (04:21)
[2018-10-30] MEDS ORDERED: Acetaminophen 325 MG TABLET PO PRN (04:21)
[2018-10-30 05:42] LABS: INR 1.9; Prothrombin Time 21.6 Seconds (9.4-12.1)
[2018-10-30] MEDS ORDERED: D5% in Water 1,000 ML IVC PRN (08:06)
[2018-10-30] MEDS ORDERED: Ranolazine 500 MG TAB.ER.12H PO SCH (09:00)
[2018-10-30] MEDS ORDERED: tiZANidine 4 MG TABLET PO PRN (09:10)
[2018-10-30] MEDS: Loratadine 10 MG TABLET PO SCH (09:56)
[2018-10-30] MEDS: Gabapentin 400 MG CAPSULE PO SCH ×3 (09:56→21:08)
[2018-10-30] MEDS: Isosorbide MONOnitrate (24 HR) 30 MG TAB.ER.24H PO SCH (09:56)
[2018-10-30] MEDS: Aspirin 81 MG TAB.CHEW PO SCH (09:56)
--- NOTE | 2018-10-30 10:50 | Internal Med Progress Note ---
Hospitalist Progress Note - Encounter Date of Encounter: 10/30/18 Time of Encounter: 10:48 - Subjective Interval History: Patient is doing okay, he had a one episode of chest pain last night at 2:00, chest pain is located in the mid of chest, sharp, last for 5 minutes. Associated was shortness of breath, denies diaphoresis no palpitation. - Exam Vitals: Temp Pulse Resp BP Pulse Ox 98.0 F 66 18 126/78 96 10/30/18 07:35 10/30/18 07:35 10/30/18 07:35 10/30/18 07:35 10/30/18 07:35 Exam: . CONSTITUTIONAL: patient appears as an age appropriate male in no acute distress. EYES Clear sclerae, bilateral pupils are equal, reactive to light. EMOI. RESPIRATORY: No accessory muscle use, bilateral clear to auscultation, no wheezing, no crackles/rales. CARDIOVASCULAR: Regular heart rate, normal S1 and S2, systolic murmur GASTROINTESTINAL: bowel sounds present, soft, no tenderness. MUSCULOSKELETAL: Joints in normal range of motion, no clubbing, no edema, no cy anosis. Bilateral peripheral pulses 2+. NEUROLOGIC: CN II to XII are grossly intact, no focal neurological deficit. DVT Prophylaxis: on heparin - Summary of Assessment and Plan Summary of Assessment and Plan: MR. Gaspar is a 48 year old male got admitted with chest pain and SOB. at [facility] Recent cath with stent to RCA on 07/27/18. Surgery was considered but poor targets for revascularization. Also had LV thrombus and put on coumadin. during last admission, cardio consulted-Recommend continue medical therapy. Repeat echo with EF of 45-50% and showed LV thrombus. c/w aspirin, Plavix, statin, imdur(dose increased than home) and metoprolol. Ranexa added. he was d/aye on 10/05. He was admitted yesterday for chest pain that started around 2:30 PM which he says he typically has on and off however on this episode it persisted over time and he noticed tingling in his upper extremities. It was associated with d yspnea and nausea as well as diaphoresis. His EKG was seen and reviewed which shows Q waves in the anterior leads concerning for prior anteroseptal infarct and subtle ST elevations in the inferior leads which in comparison to previous studies is not a new finding. Interventional cardiology was consulted with recommendations to continue medical management. #1 Unstable angina: continue heparin drip, off nitroglyicerin drip, current chest pain free, pending cardiology consult. Continue statin/ DAPT. #2 LV thrombus: INR is subtherapeutic. Heparin will be started for bridging until warfarin is resumed and therapeutic levels achieved. #3 CAD: Currently of medical therapy. Unclear how adherent he is given his social conditions. Will continue medications as last recommended by cardiology. #4. Diabetes type 2, Poorly controlled. Will be on insulin sliding scale and basal. will check A1C, add meal insulin #5 Hypertension: On lisinopril. #6 Hyperlipidemia, on sattin - Time Spent with Patient Total time spent is greater than 50% in coordination of care (as documented) at patient's floor/unit and/or counseling patient: Internal Medicine: Result - Labs CBC & Chem 7: 10/29/18 20:30 10/29/18 20:30 Labs: Short CBC 10/29/18 Range/Units 20:30 WBC 9.2 (4.3-11.1) K/mcL Hgb 13.2 (12.9-16.9) g/dL Hct 40.4 (37.5-50.1) % Plt Count 369 (140-400) K/mcL Neutrophils # 5.3 (1.6-8.9) K/mcL BMP 10/29/18 20:30 Sodium 131 L Potassium 4.4 Chloride 101 Carbon Dioxide 29 BUN 12 Creatinine 0.82 Glucose 306 H Calcium 9.5 Cardiac Enzymes 10/29/18 10/30/18 Range/Units 20:30 02:18 Troponin I < 0.03 < 0.03 (< 0.04) ng/mL - ABG Interpretation ABG results: PT/INR, D-dimer PT 21.6 Seconds (9.4-12.1) H 10/30/18 05:04 - Impressions Impressions Chest X-Ray 10/29/18 20:26 IMPRESSION: Stable portable study. D/ / Jumana Quinn Cha, MD / Jumana Quinn Cha, MD Interpreting Provider: Jumana Quinn Cha, MD Consult Discharge Plan - Plan Referrals: Michelle Barrios, ROBY [Primary Care Provider] -
--- NOTE | 2018-10-30 12:43 | Cardiology Consult Note ---
<Crys Ramos - Last Filed: 10/30/18 12:55> Date of Encounter: 10/30/18 Time of Encounter: 10:00 Assessment and Plan (1) Chest pain Current Visit: Yes Status: Acute Per cardiology: -Admitted with chest pain, states similar to previous angina. -[facility] 07/2018 with 85% prox LAD, 100% mid LAD, 99% diagonal with left to left and right to left collaterals, 80% distal circ, 90% OM1, 30% mid RCA, 95% distal RCA left to right collaterals noted. Patient was declines for CABG due to poor targets. Patient underwent staged PCI to distal RCA with AHMET. -[facility] films from [facility] and recommended medical management. -No acute ECG changes noted. Troponins negative x2. -Denies current chest pain. -[facility] 09/2018 with LVEF 45-50%, SWMA noted, LV thrombus noted. -On asa, plavix, statin, BB, imdur, ranexa. -REcommend continued medical management. Dual anti-platelet therapy. -WIll increase ranexa. Qualifiers: Chest pain type: unspecified Qualified Code(s): R07.9 - Chest pain, unspecified (2) Left ventricular apical thrombus Current Visit: No Status: Chronic Per cardiology: -Known LV thrombus. -On coumadin, INR subtherapuetic at 1.9. Follows with [facility]. -On heparin drip. -Recommend continued heparin drip until INR therapuetic 2.0-3.0. Discussion w patient/family: The assessment and plan as outlined above was discussed with the patient who expressed understanding and agreement. All questions were answered. Thank you for involving us in the care of your patient. Please call with any questions. Discussed and reviewed with . History of Present Illness Consult date: 10/29/18 Requesting physician: Amanda Bolaños Consult reason: chest pain Chief complaint: chest pain History of present illness: Mr. Gaspar is a 48 year old male with a relevant past medical history of CAD s/p PCI, DM, HTN, HLD, GERD, LV thrombus, who presented to [facility] with complaints of chest pain. Patient states he was sitting when he noticed chest pain and shortness of breath. Patient states chest pain is similar to previous angina. Patient denies exertional chest pain, states he walks all over town without chest pain. Denies current chest pain. Denies current shortness of breath. Patient is on coumadin for LV thrombus, and states he knows when his INR is low, because he "always gets chest pain." Past Med Surg Social Fam HX - Past Medical History Attestation: Yes The following information was validated with the patient. Source: patient, old records reviewed Medical history: coronary artery disease, diabetes, GERD, hypertension Additional medical history: PE Psychiatric history: depression - Past Surgical History Surgical History: no surgical history Additional surgical history: stent - Social History Smoking Status: Former smoker Smokeless Tobacco Status: No Alcohol use: none Drug use: none - Family History Mother Living Status: Hx Family Cardiac Disorders: Yes Hx Family Endocrine Disorder: Yes Medications and Allergies Loratadine [Claritin] 10 mg PO DAILY 09/30/15 [History] Tizanidine HCl [Zanaflex] 4 mg PO Q8HR PRN 05/15/17 [History] Albuterol Sulfate [Ventolin Hfa] 2 puff IH Q6H PRN 07/25/18 [History] Cyanocobalamin/Folic AC/Vit B6 [Folbee Tablet] 1 tab PO DAILY 07/25/18 [History] DULoxetine [Cymbalta] 30 mg PO DAILY 07/25/18 [History] Gabapentin 800 mg PO TID 07/25/18 [History] Insulin ASPART [Novolog Flexpen] 20 unit SQ QIDAC 07/25/18 [History] Omeprazole [PriLOSEC] 40 mg PO BID 07/25/18 [History] Aspirin 81 mg PO DAILY tab.chew 07/27/18 [Rx] Atorvastatin Calcium 80 mg PO HS #30 tablet 07/27/18 [Rx] Nitroglycerin 0.4 mg SL Q5M PRN #30 tab.subl 07/27/18 [Rx] Clopidogrel [Plavix] 75 mg PO DAILY 08/27/18 [History] Warfarin [Coumadin] 6 mg PO SUMOTUWETHSA 10/01/18 [History] Warfarin [Coumadin] 9 mg PO FR 10/02/18 [History] Insulin Glargine,Hum.rec.anlog [Toalka Mayberry] 15 units SQ HS #0 10/05/18 [Rx] Isosorbide MONOnitrate (24 HR) [Imdur] 90 mg PO DAILY #30 tab.er.24h 10/05/18 [Rx] Metoprolol [Lopressor] 12.5 mg PO BID #60 tablet 10/05/18 [Rx] Ranolazine [Ranexa] 500 mg PO BID #60 tab.er.12h 10/05/18 [Rx] Lisinopril [Zestril] 10 mg PO DAILY 10/29/18 [History] Allergy/AdvReac Type Severity Reaction Status Date / Time No Known Allergies Allergy Verified 09/30/18 16:20 All Systems Review: The remainder of the systems were reviewed and are negative - Cardiovascular Cardiovascular: as per HPI, chest pain at rest, dyspnea at rest Physical Examination Vital Signs, Last 4 Hours Temp Pulse Resp BP Pulse Ox 10/30/18 11:31 97.6 F 62 18 151/92 97 General: Conversant, No Apparent Distress HEENT: Atraumatic, Normocephaly, Mucus Membranes Moist Neck: No JVD, Normal carotid pulses Cardiac: Reg Rate and Rhythm, Normal S1 and S2, No Murmur Lungs: Normal Breath Sounds, No Wheeze, Rales, Rhonchi Neuro: Alert and responsive, No focal deficits noted Abdomen: Soft, Non-Tender Skin: No rashes noted on visualized skin Musculoskeletal: No Chest Wall Tenderness Extremities: No Clubbing, No Cyanosis, No Edema, Normal Pulses Results 10/29/18 20:30 10/29/18 20:30 Lab Results Impressions Chest X-Ray 10/29/18 20:26 IMPRESSION: Stable portable study. D/ / Jumana Quinn Cha, MD / Jumana Quinn Cha, MD Interpreting Provider: Jumana Quinn Cha, MD Active Medications Acetaminophen (Tylenol) 650 mg PO Q6HR PRN PRN Reason: Mild Pain/Fever Stop: 05/01/19 04:22 Aspirin (Aspirin) 81 mg PO DAILY [facility] Stop: 05/01/19 09:01 Last Admin: 10/30/18 09:56 Dose: 81 mg Documented by: Atorvastatin Calcium (Lipitor) 80 mg PO HS [facility] Stop: 04/30/19 22:16 Last Admin: 10/30/18 01:32 Dose: 80 mg Documented by: Clopidogrel Bisulfate (Plavix) 75 mg PO DAILY [facility] Stop: 05/01/19 09:01 Last Admin: 10/30/18 09:57 Dose: 75 mg Documented by: Dextrose/Water (Dextrose 50% (Syg)) 25 ml IVP AD PRN PRN Reason: Hypoglycemia Stop: 04/30/19 22:15 Duloxetine HCl (Cymbalta) 30 mg PO DAILY [facility] Stop: 05/01/19 09:01 Last Admin: 10/30/18 09:56 Dose: 30 mg Documented by: Gabapentin (Neurontin) 800 mg PO TID [facility] Stop: 05/01/19 09:01 Last Admin: 10/30/18 09:56 Dose: 800 mg Documented by: Glucagon (Glucagen) 1 mg IM ONCE PRN PRN Reason: Hypoglycemia Stop: 05/01/19 08:07 Glucose (Gluctose) 15 gm PO ONCE PRN PRN Reason: Hypoglycemia Stop: 04/30/19 22:15 Glucose (Gluctose) 30 gm PO ONCE PRN PRN Reason: Hypoglycemia Stop: 04/30/19 22:15 Heparin Sodium (Porcine) (Heparin) 4,000 unit IVP Q6HR PRN PRN Reason: SEE COMMENTS Stop: 04/30/19 21:52 Heparin Sodium (Porcine) (Heparin) 2,000 unit IVP Q6H PRN PRN Reason: SEE COMMENTS Stop: 04/30/19 21:52 Last Admin: 10/30/18 05:55 Dose: 2,000 unit Documented by: Heparin Sodium/Dextrose (Heparin 25,000 Unit/250 Ml D5w) 25,000 unit in 250 mls @ 10.005 mls/hr IVC .Q24H [facility]; Protocol Stop: 04/30/19 22:01 Last Titration: 10/30/18 05:47 Dose: 11.29 unit/kg/hr, 12.2 mls/hr Documented by: Dextrose (Dextrose 5%) 1,000 mls @ 100 mls/hr IVC .Q10H PRN PRN Reason: HYPOGLYCEMIA Stop: 05/01/19 08:07 Insulin Detemir (Levemir) 12 unit SQ HS [facility] Stop: 04/30/19 22:46 Last Admin: 10/30/18 01:33 Dose: 12 unit Documented by: Insulin Human Lispro (Humalog) 0 units SQ HS [facility]; Protocol Stop: 04/30/19 22:16 Last Admin: 10/30/18 01:33 Dose: 5 units Documented by: Insulin Human Lispro (Humalog) 0 units SQ TIDAC [facility]; Protocol Stop: 05/01/19 07:31 Last Admin: 10/30/18 09:55 Dose: 8 units Documented by: Insulin Human Lispro (Humalog) 5 units SQ TIDAC [facility] Stop: 05/01/19 11:31 Isosorbide Mononitrate (Imdur) 90 mg PO DAILY [facility] Stop: 05/01/19 09:01 Last Admin: 10/30/18 09:56 Dose: 90 mg Documented by: Lisinopril (Zestril) 10 mg PO DAILY [facility]; Protocol Stop: 05/01/19 09:01 Last Admin: 10/30/18 09:56 Dose: 10 mg Documented by: Loratadine (Claritin) 10 mg PO DAILY [facility]; Protocol Stop: 05/01/19 09:01 Last Admin: 10/30/18 09:56 Dose: 10 mg Documented by: Metoprolol Tartrate (Lopressor) 12.5 mg PO BID [facility] Stop: 04/30/19 22:16 Last Admin: 10/30/18 09:57 Dose: 12.5 mg Documented by: Naloxone HCl (Narcan) 0.4 mg IVP Q2MPRN PRN PRN Reason: SEE COMMENTS Stop: 05/01/19 04:22 Nitroglycerin (Nitroglycerin) 0.4 mg SL Q5MPRN PRN PRN Reason: Chest Pain Stop: 04/30/19 22:10 [facility] Stop: 05/01/19 07:31 Last Admin: 10/30/18 09:56 Dose: 40 mg Documented by: Oxycodone HCl (Roxicodone) 10 mg PO Q6HR PRN PRN Reason: Severe Pain Stop: 05/01/19 04:22 Last Admin: 10/30/18 06:12 Dose: 10 mg Documented by: Ranolazine (Ranexa) 500 mg PO BID [facility] Stop: 05/01/19 09:01 Last Admin: 10/30/18 09:56 Dose: 500 mg Documented by: Tizanidine HCl (Zanaflex) 4 mg PO BID PRN PRN Reason: Muscle Spasm Stop: 05/01/19 09:11 Tramadol HCl (Ultram) 50 mg PO Q6HR PRN PRN Reason: Moderate Pain Stop: 05/01/19 04:22 Last Admin: 10/30/18 04:31 Dose: 50 mg Documented by: Warfarin Sodium (Coumadin Perpt) 1 each PO DAILY@1800 PRN PRN Reason: SEE COMMENTS Stop: 05/01/19 18:01 Warfarin Sodium (Coumadin) 6 mg PO ONCE ONE Stop: 10/30/18 18:01 Laboratory Tests 10/29/18 10/29/18 10/30/18 20:30 20:30 02:18 Hgb 13.2 INR Creatinine 0.82 Troponin I < 0.03 < 0.03 10/30/18 05:04 Hgb INR 1.9 Creatinine Troponin I - Imaging and Cardiology Chest Xray: report reviewed Echo: report reviewed Cardiac cath: report reviewed - EKG Interpretation EKG results cardiology: personally reviewed (ECG with SR, HR 78. Q waves noted in inferior leads.), other (Telemetry reveiwed with average HR previous 12 hours noted to be 67, SR. PVCs, PACs noted.) Consult Discharge Plan - Plan Referrals: Michelle Barrios, BUDGET ASSISTANT [Primary Care Provider] - <HanhariMaida - Last Filed: 10/30/18 13:18> Date of Encounter: 10/30/18 - Attending Attestation I examined this patient and my medical decision-making was reviewed with the Resident Physician. I agree with the documented findings, disposition and treatment plan as described. Assessment and Plan Discussion w patient/family: The assessment and plan as outlined above was discussed with the patient and/or family members who expressed understanding and agreement. All questions were answered. Thank you for involving us in the care of your patient. Please call with any questions. History of Present Illness History of present illness: Mr. Gaspar is a 48 year old male All Systems Review: The remainder of the systems were reviewed and are negative Physical Examination Vital Signs, Last 4 Hours Temp Pulse Resp BP Pulse Ox 10/30/18 11:31 97.6 F 62 18 151/92 97 Results 10/29/18 20:30 10/29/18 20:30 Lab Results 10/29/18 10/29/18 10/29/18 20:30 20:30 20:30 WBC 9.2 Hgb 13.2 Hct 40.4 Plt Count 369 INR 1.7 APTT 35.6 Sodium 131 L Potassium 4.4 Chloride 101 Carbon Dioxide 29 BUN 12 Creatinine 0.82 Glucose 306 H Calcium 9.5 Troponin I < 0.03 10/30/18 10/30/18 02:18 05:04 WBC Hgb Hct Plt Count INR 1.9 APTT Sodium Potassium Chloride Carbon Dioxide BUN Creatinine Glucose Calcium Troponin I < 0.03
[2018-10-30] MEDS: *HR* OxyCODONE/APAP 10/325 TABLET PO PRN ×2 (16:07→22:10)
--- NOTE | 2018-10-30 16:58 | Event Note ---
Date of Encounter: 10/30/18 Time of Encounter: 16:57 - Cardiology Event Note Patient has been chest pain free. Ranexa has been increased. No further inpatient cardiology recommendations. Cardiology will sign off, will arrange outpatient follow up.
[2018-10-30] MEDS ORDERED: *HR* Warfarin 3 MG TABLET PO ONE (18:00)
[2018-10-30] MEDS ORDERED: Warfarin perPT PO PRN (18:00)
--- NOTE | 2018-10-30 18:53 | Electrocardiograph Report ---
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
[2018-10-30] MEDS: Ranolazine 500 MG TAB.ER.12H PO SCH (21:09)
[2018-10-30] MEDS: Heparin 25,000 UNIT/250 ML D5W 25,000 UNIT/250 ML IV.SOLN IVC SCH (21:17)
[2018-10-31 07:42] LABS: Basophils # 0.1 K/mcL (0.0-0.2); Basophils % 0.9 %; Eosinophils # 0.2 K/mcL (0.0-0.6); Eosinophils % 2.7 %; Hematocrit 37.8 % (37.5-50.1); Hemoglobin 12.2 g/dL (12.9-16.9); Immature Granulocytes % 0.4 % (0-4); Lymphocytes # 3.6 K/mcL (0.6-4.6); Lymphocytes % 45.1 %; Mean Corpuscular HGB Conc 32.3 g/dL (31.6-35.5); Mean Corpuscular Hemoglobin 28.4 pg (28.0-33.3); Mean Corpuscular Volume 88.1 fL (83.0-100.0); Mean Platelet Volume 10.4 fL (9.4-12.4); Monocytes # 0.7 K/mcL (0.0-1.3); Monocytes % 8.6 %; Neutrophils # 3.3 K/mcL (1.6-8.9); Platelet Count 307 K/mcL (140-400); Red Blood Count 4.29 M/mcL (4.19-5.50); Red Cell Distribution Width 12.9 % (11.5-14.5); Segmented Neutrophils % 42.3 %; White Blood Count 7.9 K/mcL (4.3-11.1)
[2018-10-31 07:50] LABS: INR 1.9; Prothrombin Time 21.1 Seconds (9.4-12.1)
[2018-10-31 07:57] LABS: BUN/Creatinine Ratio 21 (6-26); Blood Urea Nitrogen 15 mg/dL (6-20); Calcium 8.8 mg/dL (8.6-10.3); Carbon Dioxide 26 mEq/L (23-29); Chloride 100 mEq/L (98-107); Chol/HDL Ratio 3.6 (0-4.9); Cholesterol 160 mg/dL (< 200); Glucose 184 mg/dL (70-105); HDL Cholesterol 44 mg/dL (40-59); LDL Cholesterol,Calculated 85 mg/dL (0-99); Magnesium 1.7 mg/dL (1.6-2.6); Osmolality,Calculated 286 (280-300); Potassium 4.8 mEq/L (3.5-5.1); Sodium 135 mEq/L (136-145); Triglycerides 153 mg/dL (< 150); eGFR For African Americans > 60 (> 60); eGFR For Non-African Americans > 60 (> 60)
[2018-10-31] MEDS: Gabapentin 400 MG CAPSULE PO SCH ×3 (08:13→21:27)
[2018-10-31] MEDS: *HR* OxyCODONE/APAP 10/325 TABLET PO PRN ×3 (08:14→22:48)
[2018-10-31] MEDS: Isosorbide MONOnitrate (24 HR) 30 MG TAB.ER.24H PO SCH (08:14)
[2018-10-31] MEDS: Aspirin 81 MG TAB.CHEW PO SCH (08:14)
[2018-10-31] MEDS: Ranolazine 500 MG TAB.ER.12H PO SCH ×3 (08:15→21:27)
[2018-10-31] MEDS: Insulin LISPRO 300 UNITS/3 ML VIAL SQ SCH ×7 (08:15→21:26)
[2018-10-31] MEDS: Loratadine 10 MG TABLET PO SCH (08:15)
[2018-10-31 08:36] LABS: Estimated Average Glucose 249 mg/dl
--- NOTE | 2018-10-31 09:30 | Internal Med Progress Note ---
Hospitalist Progress Note - Encounter Date of Encounter: 10/31/18 Time of Encounter: 09:24 - Subjective Interval History: Patient is not feeling well, he complains of severe dizziness since last night after Ranexa. He stated he is unable to get up, lunalb eto focus, denies nausea and vomiting, not feel comfortable going home. Denies chest pain no shortness of breasts on room air. - Exam Vitals: Temp Pulse Resp BP Pulse Ox 98.2 F 68 17 104/66 94 10/31/18 07:30 10/31/18 07:30 10/31/18 07:30 10/31/18 07:30 10/31/18 07:30 Exam: . CONSTITUTIONAL: patient appears as an age appropriate male in no acute distress. EYES Clear sclerae, bilateral pupils are equal, reactive to light. EMOI. RESPIRATORY: No accessory muscle use, bilateral clear to auscultation, no wheezing, no crackles/rales. CARDIOVASCULAR: Regular heart rate, normal S1 and S2, systolic murmur GASTROINTESTINAL: bowel sounds present, soft, no tenderness. MUSCULOSKELETAL: Joints in normal range of motion, no clubbing, no edema, no cyanosis. Bilateral peripheral pulses 2+. NEUROLOGIC: CN II to XII are grossly intact, no focal neurological deficit. DVT Prophylaxis: on coumadin - Summary of Assessment and Plan Summary of Assessment and Plan: MR. Gaspar is a 48 year old male got admitted with chest pain and SOB. at [facility] Recent cath with stent to RCA on 07/27/18. Surgery was considered but poor targets for revascularization. Also had LV thrombus and put on coumadin. during last admission, cardio consulted-Recommend continue medical therapy. Repeat echo with EF of 45-50% and showed LV thrombus. c/w aspirin, Plavix, statin, imdur(dose increased than home) and metoprolol. Ranexa added. he was d/aye on 10/05. He was admitted yesterday for chest pain that started around 2:30 PM which he says he typically has on and off however on this episode it persisted over time and he noticed tingling in his upper extremities. It was associated with dyspnea and nausea as well as diaphoresis. His EKG was seen and reviewed which shows Q waves in the anterior leads concerning for prior anteroseptal infarct and subtle ST elevations in the inferior leads which in comparison to previous studies is not a new finding. Interventional cardiology was consulted with recommendations to continue medical management. #1 Unstable angina: resolved, off nitroglyicerin drip, cardiology consult. Continue statin/ DAPT. increased Ranexa to 1000 mg BID, but unable to tolerate #2 LV thrombus: INR is subtherapeutic. Heparin will be started for bridging until warfarin is resumed and therapeutic levels achieved. INR is not therappeutic yet #3 CAD: Currently of medical therapy. Unclear how adherent he is given his social conditions. #4. Diabetes type 2, Poorly controlled. Will be on insulin sliding scale and basal. A1C 10.3%, add meal insulin #5 Hypertension: On lisinopril. #6 Hyperlipidemia, on statin disposition when INR is therapeutic await for cardiology call for possible Ranexa side effect? I spoke to Crys cardiolgy, she is ok to decrease Ranexa dose to 500 mg I also reduced neurotin to 400 mg TID - Time Spent with Patient Total time spent is greater than 50% in coordination of care (as documented) at patient's floor/unit and/or counseling patient: less than 15 minutes Plan of Care Discussed with: patient Internal Medicine: Result - Labs CBC & Chem 7: 10/31/18 06:42 10/31/18 06:42 Labs: Short CBC 10/31/18 Range/Units 06:42 WBC 7.9 (4.3-11.1) K/mcL Hgb 12.2 L (12.9-16.9) g/dL Hct 37.8 (37.5-50.1) % Plt Count 307 (140-400) K/mcL Neutrophils # 3.3 (1.6-8.9) K/mcL BMP 10/31/18 06:42 Sodium 135 L Potassium 4.8 Chloride 100 Carbon Dioxide 26 BUN 15 Creatinine 0.73 Glucose 184 H Calcium 8.8 - ABG Interpretation ABG results: PT/INR, D-dimer PT 21.1 Seconds (9.4-12.1) H 10/31/18 06:42 Consult Discharge Plan - Plan Referrals: Michelle Barrios, BEET TOPPER [Primary Care Provider] -
[2018-10-31] MEDS ORDERED: *HR* Warfarin 3 MG TABLET PO ONE (18:00)
[2018-10-31] MEDS: Heparin 25,000 UNIT/250 ML D5W 25,000 UNIT/250 ML IV.SOLN IVC SCH (20:47)
[2018-10-31] MEDS: Insulin DETEMIR 100 UNIT/ML X5UNITS SQ SCH (21:29)
[2018-11-01 03:31] LABS: INR 1.9; Prothrombin Time 21.7 Seconds (9.4-12.1)
[2018-11-01] MEDS: Gabapentin 400 MG CAPSULE PO SCH ×3 (08:50→22:03)
[2018-11-01] MEDS: Isosorbide MONOnitrate (24 HR) 30 MG TAB.ER.24H PO SCH (08:51)
[2018-11-01] MEDS: Ranolazine 500 MG TAB.ER.12H PO SCH ×2 (08:52→22:03)
[2018-11-01] MEDS: Insulin LISPRO 300 UNITS/3 ML VIAL SQ SCH ×7 (08:52→22:04)
[2018-11-01] MEDS: Aspirin 81 MG TAB.CHEW PO SCH (08:52)
[2018-11-01] MEDS: Loratadine 10 MG TABLET PO SCH (08:52)
[2018-11-01] MEDS: *HR* OxyCODONE/APAP 10/325 TABLET PO PRN ×2 (08:52→17:15)
--- NOTE | 2018-11-01 14:30 | Internal Med Progress Note ---
Hospitalist Progress Note - Encounter Date of Encounter: 11/01/18 Time of Encounter: 14:27 - Subjective Interval History: Patient is still complaining off dizziness, he stated now he has vertigo, does not want to go home. I added meclizine 12.5 mg BID - Exam Vitals: Temp Pulse Resp BP Pulse Ox 98.4 F 73 18 101/64 91 11/01/18 12:02 11/01/18 12:02 11/01/18 12:02 11/01/18 12:02 11/01/18 12:02 Exam: . CONSTITUTIONAL: patient appears as an age appropriate male in no acute distress. EYES Clear sclerae, bilateral pupils are equal, reactive to light. EMOI. RESPIRATORY: No accessory muscle use, bilateral clear to auscultation, no wheezing, no crackles/rales. CARDIOVASCULAR: Regular heart rate, normal S1 and S2, systolic murmur GASTROINTESTINAL: bowel sounds present, soft, no tenderness. MUSCULOSKELETAL: Joints in normal range of motion, no clubbing, no edema, no cyanosis. Bilateral peripheral pulses 2+. NEUROLOGIC: CN II to XII are grossly intact, no focal neurological deficit. DVT Prophylaxis: on coumadin - Summary of Assessment and Plan Summary of Assessment and Plan: MR. Gaspar is a 48 year old male got admitted with chest pain and SOB. at [facility] Recent cath with stent to RCA on 07/27/18. Surgery was considered but poor targets for revascularization. Also had LV thrombus and put on coumadin. during last admission, cardio consulted-Recommend continue medical therapy. Repeat echo with EF of 45-50% and showed LV thrombus. c/w aspirin, Plavix, statin, imdur(dose increased than home) and metoprolol. Ranexa added. he was d/aye on 10/05. He was admitted yesterday for chest pain that started around 2:30 PM which he says he typically has on and off however on this episode it persisted over time and he noticed tingling in his upper extremities. It was associated with dyspnea and nausea as well as diaphoresis. His EKG was seen and reviewed which shows Q waves in the anterior leads concerning for prior anteroseptal infarct and subtle ST elevations in the inferior leads which in comparison to previous studies is not a new finding. Interventional cardiology was consulted with recommendations to continue medical management. #1 Unstable angina: resolved, off nitroglyicerin drip, cardiology consult. Continue statin/ DAPT. increased Ranexa to 1000 mg BID, but unable to tolerate, no recurrent chest pain #2 LV thrombus: INR is subtherapeutic. Heparin will be started for bridging until warfarin is resumed and therapeutic levels achieved. INR is not therappeutic yet #3 CAD: Currently of medical therapy. Unclear how adherent he is given his social conditions. #4. Diabetes type 2, Poorly controlled. Will be on insulin sliding scale and basal. A1C 10.3%, add meal insulin #5 Hypertension: On lisinopril. #6 Hyperlipidemia, on statin disposition when INR is therapeutic, discussed with pharmacist, coumadin dose increased I spoke to Crys cardiolgy, she is ok to decrease Ranexa dose to 500 mg I also reduced neurotin to 400 mg TID hopefully INR >=2 tomorrow, paitent is homeless, need social work help for Nursing Home - Time Spent with Patient Total time spent is greater than 50% in coordination of care (as documented) at patient's floor/unit and/or counseling patient: 25 - 35 minutes Plan of Care Discussed with: patient Internal Medicine: Result - Labs CBC & Chem 7: 10/31/18 06:42 10/31/18 06:42 - ABG Interpretation ABG results: PT/INR, D-dimer PT 21.7 Seconds (9.4-12.1) H 11/01/18 02:34 Consult Discharge Plan - Plan Referrals: Michelle Barrios, GOLD MARKER [Primary Care Provider] -
[2018-11-01] MEDS ORDERED: *HR* Warfarin 3 MG TABLET PO ONE (18:00)
[2018-11-01] MEDS: Insulin DETEMIR 100 UNIT/ML X5UNITS SQ SCH (22:02)
[2018-11-01] MEDS: Heparin 25,000 UNIT/250 ML D5W 25,000 UNIT/250 ML IV.SOLN IVC SCH (22:04)
[2018-11-02] MEDS: *HR* OxyCODONE/APAP 10/325 TABLET PO PRN ×3 (03:41→19:01)
[2018-11-02 04:22] LABS: Basophils % 0.5 %; Eosinophils # 0.1 K/mcL (0.0-0.6); Eosinophils % 1.7 %; Hematocrit 37.5 % (37.5-50.1); Hemoglobin 12.4 g/dL (12.9-16.9); Immature Granulocytes % 0.2 % (0-4); Lymphocytes # 2.8 K/mcL (0.6-4.6); Lymphocytes % 34.3 %; Mean Corpuscular HGB Conc 33.1 g/dL (31.6-35.5); Mean Corpuscular Hemoglobin 27.9 pg (28.0-33.3); Mean Corpuscular Volume 84.5 fL (83.0-100.0); Mean Platelet Volume 10.1 fL (9.4-12.4); Monocytes # 0.9 K/mcL (0.0-1.3); Monocytes % 10.6 %; Neutrophils # 4.3 K/mcL (1.6-8.9); Platelet Count 338 K/mcL (140-400); Red Blood Count 4.44 M/mcL (4.19-5.50); Red Cell Distribution Width 12.7 % (11.5-14.5); Segmented Neutrophils % 52.7 %; White Blood Count 8.2 K/mcL (4.3-11.1)
[2018-11-02 04:27] LABS: INR 1.7; Prothrombin Time 19.6 Seconds (9.4-12.1)
[2018-11-02 04:45] LABS: BUN/Creatinine Ratio 16 (6-26); Blood Urea Nitrogen 18 mg/dL (6-20); Calcium 9.4 mg/dL (8.6-10.3); Carbon Dioxide 27 mEq/L (23-29); Chloride 100 mEq/L (98-107); Glucose 166 mg/dL (70-105); Magnesium 1.8 mg/dL (1.6-2.6); Osmolality,Calculated 286 (280-300); Potassium 4.9 mEq/L (3.5-5.1); Sodium 135 mEq/L (136-145); eGFR For African Americans > 60 (> 60); eGFR For Non-African Americans > 60 (> 60)
[2018-11-02] MEDS: Loratadine 10 MG TABLET PO SCH (08:24)
[2018-11-02] MEDS: Ranolazine 500 MG TAB.ER.12H PO SCH ×2 (08:24→19:38)
[2018-11-02] MEDS: Isosorbide MONOnitrate (24 HR) 30 MG TAB.ER.24H PO SCH (08:25)
[2018-11-02] MEDS: Insulin LISPRO 300 UNITS/3 ML VIAL SQ SCH ×7 (08:25→20:25)
[2018-11-02] MEDS: Aspirin 81 MG TAB.CHEW PO SCH (08:25)
[2018-11-02] MEDS: Gabapentin 400 MG CAPSULE PO SCH ×3 (08:25→19:35)
--- NOTE | 2018-11-02 12:03 | Internal Med Progress Note ---
Hospitalist Progress Note - Encounter Date of Encounter: 11/02/18 Time of Encounter: 11:56 - Subjective Interval History: The patient was seen and examined at the bedside. Patient denies chest pain or shortness of breath this morning INR still subtherapeutic 1.7 Continue on IV heparin drip bridging, warfarin dose to be adjusted by the pharmacy - Exam Vitals: Temp Pulse Resp BP Pulse Ox 97.9 F 65 18 120/78 94 11/02/18 07:40 11/02/18 07:40 11/02/18 07:40 11/02/18 07:40 11/02/18 07:40 Exam: Physical examination: Gen.: Patient is alert and oriented, not in respiratory distress of pain HEENT: perrla , EOMI, no thyroid gland enlargement, no neck mass, supple neck Heart: S1 and S2 preston, normal sinus rhythm, no cardiac murmur no gallop rhythm Chest: Air entry equal bilaterally, clear chest, no wheezing, crackles or crepitation Abdomen: Soft nontender nondistended positive bowel sounds, no organomegaly Extremities: No pitting edema, peripheral pulses palpable, no cyanosis tenderness Neuro: Able to move all 4 limbs, no focal neurological deficit. DVT Prophylaxis: on coumadin - Summary of Assessment and Plan Summary of Assessment and Plan: MR. Gaspar is a 48 year old male got admitted with chest pain and SOB. at [facility] Recent cath with stent to RCA on 07/27/18. Surgery was considered but poor targets for revascularization. Also had LV thrombus and put on coumadin. during last admission, cardio consulted-Recommend continue medical therapy. Repeat echo with EF of 45-50% and showed LV thrombus. c/w aspirin, Plavix, statin, imdur(dose increased than home) and metoprolol. Ranexa added. he was d/aye on 10/05. He was admitted yesterday for chest pain that started around 2:30 PM which he says he typically has on and off however on this episode it persisted over time and he noticed tingling in his upper extremities. It was associated with dyspnea and nausea as well as diaphoresis. His EKG was seen and reviewed which shows Q waves in the anterior leads concerning for prior anteroseptal infarct and subtle ST elevations in the inferior leads which in comparison to previous studies is not a new finding. Interventional cardiology was consulted with recommendations to continue medical management. #1 Acute chest pain: no CP today morning off nitroglyicerin drip, cardiology consulted recommend optimizing medical management , Continue statin/ DAPT. increased Ranexa to 500 mg BID to assure patient complaint with medical management, no further inpatient cardiology recommendations as per cardiology note. #2 LV thrombus: INR is subtherapeutic. On Heparin bridging, pharmacy to dose warfarin, INR today 1.7 #3 CAD: Currently of medical therapy. : [facility] 07/2018 with 85% prox LAD, 100% mid LAD, 99% diagonal with left to left and right to left collaterals, 80% distal circ, 90% OM1, 30% mid RCA, 95% distal RCA left to right collaterals noted. Patient was declines for CABG due to poor targets. Patient underwent staged PCI to distal RCA with AHMET. -[facility] films from [facility] and recommended medical management. -No acute ECG changes noted. Troponins negative x2. -Denies current chest pain. #4. Diabetes type 2, Poorly controlled. on insulin sliding scale and basal. A1C 10.3%, add meal insulin #5 Hypertension: On lisinopril. #6 Hyperlipidemia, on statin disposition when INR is therapeutic, paitent is homeless, need social work help for [facility] - Time Spent with Patient Total time spent is greater than 50% in coordination of care (as documented) at patient's floor/unit and/or counseling patient: Plan of Care Discussed with: patient Internal Medicine: Result - Labs CBC & Chem 7: 11/02/18 04:08 11/02/18 04:08 Labs: Short CBC 11/02/18 Range/Units 04:08 WBC 8.2 (4.3-11.1) K/mcL Hgb 12.4 L (12.9-16.9) g/dL Hct 37.5 (37.5-50.1) % Plt Count 338 (140-400) K/mcL Neutrophils # 4.3 (1.6-8.9) K/mcL BMP 11/02/18 04:08 Sodium 135 L Potassium 4.9 Chloride 100 Carbon Dioxide 27 BUN 18 Creatinine 1.14 Glucose 166 H Calcium 9.4 - ABG Interpretation ABG results: PT/INR, D-dimer PT 19.6 Seconds (9.4-12.1) H 11/02/18 04:08 Consult Discharge Plan - Plan Referrals: Michelle Barrios, ROBY [Primary Care Provider] -
[2018-11-02] MEDS ORDERED: *HR* Warfarin 3 MG TABLET PO ONE ×2 (15:30→18:00)
[2018-11-02] MEDS ORDERED: Heparin 25,000 UNIT/250 ML D5W 25,000 UNIT/250 ML IV.SOLN IVC SCH (17:00)
[2018-11-02] MEDS: Insulin DETEMIR 100 UNIT/ML X5UNITS SQ SCH (20:26)
[2018-11-03 07:38] LABS: Hematocrit 39.9 % (37.5-50.1); Mean Corpuscular HGB Conc 32.6 g/dL (31.6-35.5); Mean Corpuscular Hemoglobin 28.2 pg (28.0-33.3); Mean Corpuscular Volume 86.6 fL (83.0-100.0); Mean Platelet Volume 10.2 fL (9.4-12.4); Platelet Count 333 K/mcL (140-400); Red Blood Count 4.61 M/mcL (4.19-5.50); Red Cell Distribution Width 12.9 % (11.5-14.5); White Blood Count 6.8 K/mcL (4.3-11.1)
[2018-11-03 07:48] LABS: Alanine Aminotransferase 7 Units/L (7-52); Albumin 3.8 g/dL (3.5-5.7); Albumin/Globulin Ratio 1.2 (1.1-2.2); Alkaline Phosphatase 67 Units/L (34-104); Aspartate Amino Transferase 11 Units/L (13-39); BUN/Creatinine Ratio 22 (6-26); Bilirubin,Total 0.3 mg/dL (0.3-1.0); Blood Urea Nitrogen 22 mg/dL (6-20); Calcium 9.7 mg/dL (8.6-10.3); Carbon Dioxide 28 mEq/L (23-29); Chloride 103 mEq/L (98-107); Globulin 3.1 g/dL (2.4-3.5); Glucose 176 mg/dL (70-105); Magnesium 1.9 mg/dL (1.6-2.6); Osmolality,Calculated 292 (280-300); Phosphorous 3.3 mg/dL (2.7-4.5); Potassium 5.1 mEq/L (3.5-5.1); Sodium 137 mEq/L (136-145); Total Protein 6.9 g/dL (6.4-8.9); eGFR For African Americans > 60 (> 60); eGFR For Non-African Americans > 60 (> 60)
[2018-11-03] MEDS: Loratadine 10 MG TABLET PO SCH (08:01)
[2018-11-03] MEDS: Ranolazine 500 MG TAB.ER.12H PO SCH ×2 (08:01→21:38)
[2018-11-03] MEDS: Aspirin 81 MG TAB.CHEW PO SCH (08:01)
[2018-11-03] MEDS: Isosorbide MONOnitrate (24 HR) 30 MG TAB.ER.24H PO SCH (08:01)
[2018-11-03] MEDS: Gabapentin 400 MG CAPSULE PO SCH ×3 (08:02→21:38)
[2018-11-03] MEDS: Insulin LISPRO 300 UNITS/3 ML VIAL SQ SCH ×7 (08:05→21:33)
[2018-11-03] MEDS: *HR* OxyCODONE/APAP 10/325 TABLET PO PRN ×3 (08:09→23:22)
[2018-11-03 09:43] LABS: INR 2.1; Prothrombin Time 23.8 Seconds (9.4-12.1)
--- NOTE | 2018-11-03 10:52 | Internal Med Progress Note ---
Hospitalist Progress Note - Encounter Date of Encounter: 11/03/18 Time of Encounter: 10:48 - Subjective Interval History: Patient was seen and examined at the bedside. Patient denies chest pain or shortness of breath INR 2.1 Stop heparin drip and continued on warfarin pharmacy dose millinery worker to find assisted for the patient that most likely happen tomorrow - Exam Vitals: Temp Pulse Resp BP Pulse Ox 97.7 F 65 16 143/88 96 11/03/18 07:59 11/03/18 07:59 11/03/18 07:59 11/03/18 07:59 11/03/18 07:59 Exam: Physical examination: Gen.: Patient is alert and oriented, not in respiratory distress of pain HEENT: perrla , EOMI, no thyroid gland enlargement, no neck mass, supple neck Heart: S1 and S2 preston, normal sinus rhythm, no cardiac murmur no gallop rhythm Chest: Air entry equal bilaterally, clear chest, no wheezing, crackles or crepitation Abdomen: Soft nontender nondistended positive bowel sounds, no organomegaly Extremities: No pitting edema, peripheral pulses palpable, no cyanosis tenderness Neuro: Able to move all 4 limbs, no focal neurological deficit. DVT Prophylaxis: on coumadin - Summary of Assessment and Plan Summary of Assessment and Plan: MR. Gaspar is a 48 year old male got admitted with chest pain and SOB. at [facility] Recent cath with stent to RCA on 07/27/18. Surgery was considered but poor targets for revascularization. Also had LV thrombus and put on coumadin. during last admission, cardio consulted-Recommend continue medical therapy. Repeat echo with EF of 45-50% and showed LV thrombus. c/w aspirin, Plavix, statin, imdur(dose increased than home) and metoprolol. Ranexa added. he was d/aye on 10/05. He was admitted yesterday for chest pain that started around 2:30 PM which he says he typically has on and off however on this episode it persisted over time and he noticed tingling in his upper extremities. It was associated with dyspn ea and nausea as well as diaphoresis. His EKG was seen and reviewed which shows Q waves in the anterior leads concerning for prior anteroseptal infarct and subtle ST elevations in the inferior leads which in comparison to previous studies is not a new finding. Interventional cardiology was consulted with recommendations to continue medical management. #1 Acute chest pain: no CP today morning off nitroglyicerin drip, cardiology consulted recommend optimizing medical management , Continue statin/ DAPT. increased Ranexa to 500 mg BID to assure patient complaint with medical management, no further inpatient cardiology recommendations as per cardiology note. #2 LV thrombus: INR today 2.1. d/c Heparin bridging, continue on oral warfarin pharmacy to dose warfarin. #3 CAD: Currently of medical therapy. : [facility] 07/2018 with 85% prox LAD, 100% mid LAD, 99% diagonal with left to left and right to left collaterals, 80% distal circ, 90% OM1, 30% mid RCA, 95% distal RCA left to right collaterals noted. Patient was declines for CABG due to poor targets. Patient underwent staged PCI to distal RCA with AHMET. -[facility] films from [facility] and recommended medical management. -No acute ECG changes noted. Troponins negative x2. -Denies current chest pain. #4. Diabetes type 2, Poorly controlled. on insulin sliding scale , basal, added premeal insulin for better control of BS. A1C 10.3%, #5 Hypertension: On lisinopril. #6 Hyperlipidemia, on statin patient is homeless, need social work help for Longterm, likely on Sunday - Time Spent with Patient Total time spent is greater than 50% in coordination of care (as documented) at patient's floor/unit and/or counseling patient: Plan of Care Discussed with: patient Internal Medicine: Result - Labs CBC & Chem 7: 11/03/18 06:53 11/03/18 06:53 Labs: Short CBC 11/03/18 Range/Units 06:53 WBC 6.8 (4.3-11.1) K/mcL Hgb 13.0 (12.9-16.9) g/dL Hct 39.9 (37.5-50.1) % Plt Count 333 (140-400) K/mcL BMP 11/03/18 06:53 Sodium 137 Potassium 5.1 Chloride 103 Carbon Dioxide 28 BUN 22 H Creatinine 0.99 Glucose 176 H Calcium 9.7 Liver Function 11/03/18 Range/Units 06:53 Total Bilirubin 0.3 (0.3-1.0) mg/dL AST 11 L (13-39) Units/L ALT 7 (7-52) Units/L Alkaline Phosphatase 67 (34-104) Units/L Albumin 3.8 (3.5-5.7) g/dL - ABG Interpretation ABG results: PT/INR, D-dimer PT 23.8 Seconds (9.4-12.1) H 11/03/18 09:22 Consult Discharge Plan - Plan Referrals: Michelle Barrios, ROBY [Primary Care Provider] -
[2018-11-03] MEDS ORDERED: *HR* Warfarin 3 MG TABLET PO ONE (18:00)
[2018-11-03] MEDS: Insulin DETEMIR 100 UNIT/ML X5UNITS SQ SCH (21:38)
[2018-11-04 01:44] LABS: Hematocrit 39.8 % (37.5-50.1); Hemoglobin 12.8 g/dL (12.9-16.9); Mean Corpuscular HGB Conc 32.2 g/dL (31.6-35.5); Mean Corpuscular Hemoglobin 27.6 pg (28.0-33.3); Mean Corpuscular Volume 85.8 fL (83.0-100.0); Mean Platelet Volume 10.5 fL (9.4-12.4); Platelet Count 345 K/mcL (140-400); Red Blood Count 4.64 M/mcL (4.19-5.50); Red Cell Distribution Width 12.9 % (11.5-14.5); White Blood Count 7.8 K/mcL (4.3-11.1)
[2018-11-04 02:03] LABS: Alanine Aminotransferase 8 Units/L (7-52); Albumin 3.6 g/dL (3.5-5.7); Albumin/Globulin Ratio 1.1 (1.1-2.2); Alkaline Phosphatase 64 Units/L (34-104); Aspartate Amino Transferase 11 Units/L (13-39); BUN/Creatinine Ratio 24 (6-26); Bilirubin,Total 0.3 mg/dL (0.3-1.0); Blood Urea Nitrogen 24 mg/dL (6-20); Calcium 9.1 mg/dL (8.6-10.3); Carbon Dioxide 26 mEq/L (23-29); Chloride 101 mEq/L (98-107); Globulin 3.2 g/dL (2.4-3.5); Glucose 217 mg/dL (70-105); Magnesium 1.9 mg/dL (1.6-2.6); Osmolality,Calculated 289 (280-300); Sodium 134 mEq/L (136-145); Total Protein 6.8 g/dL (6.4-8.9); eGFR For African Americans > 60 (> 60); eGFR For Non-African Americans > 60 (> 60)
[2018-11-04 08:04] LABS: INR 2.3; Prothrombin Time 26.3 Seconds (9.4-12.1)
[2018-11-04] MEDS: Loratadine 10 MG TABLET PO SCH (09:47)
[2018-11-04] MEDS: Ranolazine 500 MG TAB.ER.12H PO SCH (09:47)
[2018-11-04] MEDS: Insulin LISPRO 300 UNITS/3 ML VIAL SQ SCH ×4 (09:47→13:50)
[2018-11-04] MEDS: Aspirin 81 MG TAB.CHEW PO SCH (09:48)
[2018-11-04] MEDS: Isosorbide MONOnitrate (24 HR) 30 MG TAB.ER.24H PO SCH (09:48)
[2018-11-04] MEDS: Gabapentin 400 MG CAPSULE PO SCH ×2 (09:49→16:38)
[2018-11-04] MEDS: *HR* OxyCODONE/APAP 10/325 TABLET PO PRN (11:46)
[2018-11-04 12:15] VITALS: BP 149/93
--- NOTE | 2018-11-04 12:24 | Discharge Summary ---
Orders not resulted at time of discharge: Pending orders 11/05/18 04:00 PT/INR [Prothrombin Time INR] [COAG] AM 0400 11/06/18 04:00 PT/INR [Prothrombin Time INR] [COAG] AM 0400 11/07/18 04:00 PT/INR [Prothrombin Time INR] [COAG] AM 0400 11/08/18 04:00 PT/INR [Prothrombin Time INR] [COAG] AM 0400 11/09/18 04:00 PT/INR [Prothrombin Time INR] [COAG] AM 0400 Date of Encounter: 11/04/18 Time of Encounter: 12:20 Hospital course: Mr. Gaspar is a 48 year old male MR. Gaspar is a 48 year old male got admitted with chest pain and SOB. at [facility] Recent cath with stent to RCA on 07/27/18. Surgery was considered but poor targets for revascularization. Also had LV thrombus and put on coumadin. during last admission, cardio consulted-Recommend continue medical therapy. Repeat echo with EF of 45-50% and showed LV thrombus. c/w aspirin, Plavix, statin, imdur(dose increased than home) and metoprolol. Ranexa added. he was d/aye on 10/05. He was admitted for chest pain that started around 2:30 PM which he says he typically has on and off however on this episode it persisted over time and he noticed tingling in his upper extremities. It was associated with dyspnea and nausea as well as diaphoresis. His EKG was seen and reviewed which shows Q waves in the anterior leads concerning for prior anteroseptal infarct and subtle ST elevations in the inferior leads which in comparison to previous studies is not a new finding. Interventional cardiology was consulted with recommendations to continue medical management. #1 Acute chest pain: no recurrent since admission, cardiology consulted recommend optimizing medical management , Continue statin/ DAPT. increased Ranexa to 1000 mg but paitent developed severe dizziness, then dose reduced back to 500 mg BID at home dose, paitent is doing ok, no recurrent chest pain. patient is instructed to complaint with medical management, no further inpatient cardiology recommendations as per cardiology note. #2 LV thrombus: INR today 2.1. d/c Heparin bridging, continue on oral warfarin pharmacy to dose warfarin. #3 CAD: Currently of medical therapy. : [facility] 07/2018 with 85% prox LAD, 100% mid LAD, 99% diagonal with left to left and right to left collaterals, 80% distal circ, 90% OM1, 30% mid RCA, 95% distal RCA left to right collaterals noted. Patient was declines for CABG due to poor targets. Patient underwent staged PCI to distal RCA with AHMET. -[facility]int [facility] films from [facility] and recommended medical management. -No acute ECG changes noted. Troponins negative x2. -Denies current chest pain. #4. Diabetes type 2, Poorly controlled. on insulin sliding scale , basal, added premeal insulin for better control of BS. A1C 10.3%, #5 Hypertension: On lisinopril. #6 Hyperlipidemia, on statin patient says, he is doing well, no more ldizziness, he is ready to go home, he has friend home to stay discharge on stable condition, will disucssed with social for homeless any needs he said he has all home meds, no need for scripts Discharge discussed with: patient Time spent discussing smoking cessation with patient: 3 to 10 minutes - Time Spent with Patient Total time spent providing and/or coordinating discharge services: Time spent: Less than 30 minutes - Discharge Medications Prescriptions: Continued Loratadine [Claritin] 10 mg PO DAILY Cyanocobalamin/Folic AC/Vit B6 [Folbee Tablet] 1 tab PO DAILY Gabapentin 800 mg PO TID Insulin ASPART [Novolog Flexpen] 20 unit SQ QIDAC Omeprazole [PriLOSEC] 40 mg PO BID Albuterol Sulfate [Ventolin Hfa] 2 puff IH Q6H PRN PRN Reason: Shortness Of Breath DULoxetine [Cymbalta] 30 mg PO DAILY Nitroglycerin 0.4 mg SL Q5M PRN #30 tab.subl PRN Reason: Chest Pain Atorvastatin Calcium 80 mg PO HS #30 tablet Aspirin 81 mg PO DAILY tab.chew Clopidogrel [Plavix] 75 mg PO DAILY Warfarin [Coumadin] 6 mg PO SUMOTUWETHSA Warfarin [Coumadin] 9 mg PO FR Isosorbide MONOnitrate (24 HR) [Imdur] 90 mg PO DAILY #30 tab.er.24h Metoprolol [Lopressor] 12.5 mg PO BID #60 tablet Ranolazine [Ranexa] 500 mg PO BID #60 tab.er.12h Insulin Glargine,Hum.rec.anlog [Toujeo Solostar] 15 units SQ HS #0 Lisinopril [Zestril] 10 mg PO DAILY Tizanidine HCl [Zanaflex] 4 mg PO Q8HR PRN PRN Reason: Muscle Spasm Home Medications: Loratadine [Claritin] 10 mg PO DAILY 09/30/15 [History] Tizanidine HCl [Zanaflex] 4 mg PO Q8HR PRN 05/15/17 [History] Albuterol Sulfate [Ventolin Hfa] 2 puff IH Q6H PRN 07/25/18 [History] Cyanocobalamin/Folic AC/Vit B6 [Folbee Tablet] 1 tab PO DAILY 07/25/18 [History] DULoxetine [Cymbalta] 30 mg PO DAILY 07/25/18 [History] Gabapentin 800 mg PO TID 07/25/18 [History] Insulin ASPART [Novolog Flexpen] 20 unit SQ QIDAC 07/25/18 [History] Omeprazole [PriLOSEC] 40 mg PO BID 07/25/18 [History] Aspirin 81 mg PO DAILY tab.chew 07/27/18 [Rx] Atorvastatin Calcium 80 mg PO HS #30 tablet 07/27/18 [Rx] Nitroglycerin 0.4 mg SL Q5M PRN #30 tab.subl 07/27/18 [Rx] Clopidogrel [Plavix] 75 mg PO DAILY 08/27/18 [History] Warfarin [Coumadin] 6 mg PO SUMOTUWETHSA 10/01/18 [History] Warfarin [Coumadin] 9 mg PO FR 10/02/18 [History] Insulin Glargine,Hum.rec.anlog [Toujeo Solostar] 15 units SQ HS #0 10/05/18 [Rx] Isosorbide MONOnitrate (24 HR) [Imdur] 90 mg PO DAILY #30 tab.er.24h 10/05/18 [Rx] Metoprolol [Lopressor] 12.5 mg PO BID #60 tablet 10/05/18 [Rx] Ranolazine [Ranexa] 500 mg PO BID #60 tab.er.12h 10/05/18 [Rx] Lisinopril [Zestril] 10 mg PO DAILY 10/29/18 [History] Allergies/Adverse Reactions: Allergy/AdvReac Type Severity Reaction Status Date / Time No Known Allergies Allergy Verified 09/30/18 16:20 Date of admission: 11/01/18 18:37 Primary care physician: Michelle Barrios CNP Consults: 10/29/18 21:50 Consult to Cardiology [CONS] Stat Comment: Consulting Provider: Cardiology Warren Reason for Consult: ACS rule out Time Notified: 21:50 Call Completed: Yes 10/30/18 00:53 Consult to Crabbing Machine Operator [CONS] Routine Reason for SW Consult: pt homeless, currently living in homeless skilled nursing - Constitutional Vitals: Temp Pulse Resp BP Pulse Ox 97.8 F 65 19 149/93 97 11/04/18 12:14 11/04/18 12:14 11/04/18 12:14 11/04/18 12:14 11/04/18 12:14 General appearance: Present: A&O X 3, pleasant Exam: Physical examination: Gen.: Patient is alert and oriented, not in respiratory distress of pain HEENT: perrla , EOMI, no thyroid gland enlargement, no neck mass, supple neck Heart: S1 and S2 preston, normal sinus rhythm, no cardiac murmur no gallop rhythm Chest: Air entry equal bilaterally, clear chest, no wheezing, crackles or crepitation Abdomen: Soft nontender nondistended positive bowel sounds, no organomegaly Extremities: No pitting edema, peripheral pulses palpable, no cyanosis tenderness Neuro: Able to move all 4 limbs, no focal neurological deficit. - Patient Status Disposition: Home, Self-Care Condition: Fair Overall status at discharge: patient is back to baseline - Discharge Instructions Follow Up With: Michelle Barrios CNP [Primary Care Provider] -
[2018-11-04] MEDS ORDERED: *HR* Warfarin 3 MG TABLET PO ONE (18:00)
== END 2018-11-04 16:48 | disposition home or self-care (01) | DRG 198 ==
LOC: 2ANU 20:15 → EMEROOARM 20:15 → SUATTDRO 22:26 → 2ANU 10-30 00:08 → SUATTDRO 11-01 18:37
PROVIDERS: ADMIT Internal Medicine; ATTEND Hospitalist

== ENCOUNTER 2018-12-26 15:03 | Observation (INO) ==
[2018-12-26 15:38] LABS: Basophils # 0.1 K/mcL (0.0-0.2); Eosinophils # 0.3 K/mcL (0.0-0.6); Eosinophils % 3.3 %; Hematocrit 43.1 % (37.5-50.1); Hemoglobin 14.2 g/dL (12.9-16.9); Immature Granulocytes % 0.5 % (0-4); Lymphocytes # 2.3 K/mcL (0.6-4.6); Lymphocytes % 28.4 %; Mean Corpuscular HGB Conc 32.9 g/dL (31.6-35.5); Mean Corpuscular Hemoglobin 28.2 pg (28.0-33.3); Mean Corpuscular Volume 85.7 fL (83.0-100.0); Mean Platelet Volume 10.2 fL (9.4-12.4); Monocytes # 0.7 K/mcL (0.0-1.3); Monocytes % 8.7 %; Neutrophils # 4.6 K/mcL (1.6-8.9); Platelet Count 342 K/mcL (140-400); Red Blood Count 5.03 M/mcL (4.19-5.50); Red Cell Distribution Width 13.2 % (11.5-14.5); Segmented Neutrophils % 58.1 %; White Blood Count 7.9 K/mcL (4.3-11.1)
[2018-12-26 16:05] LABS: BUN/Creatinine Ratio 12 (6-26); Blood Urea Nitrogen 11 mg/dL (6-20); Calcium 9.4 mg/dL (8.6-10.3); Carbon Dioxide 29 mEq/L (23-29); Chloride 99 mEq/L (98-107); Glucose 245 mg/dL (70-105); Magnesium 1.8 mg/dL (1.6-2.6); Osmolality,Calculated 286 (280-300); Potassium 5.3 mEq/L (3.5-5.1); Sodium 134 mEq/L (136-145); Troponin I < 0.03 ng/mL (< 0.04); eGFR For African Americans > 60 (> 60); eGFR For Non-African Americans > 60 (> 60)
[2018-12-26] MEDS ORDERED: MOM Conc 10 ML UD.LIQ PO PRN (16:42)
[2018-12-26] MEDS ORDERED: Ondansetron 4 MG/2 ML VIAL IVP PRN (16:42)
[2018-12-26] MEDS ORDERED: Naloxone 0.4 MG/ML INJ IVP PRN (16:42)
[2018-12-26] MEDS ORDERED: Nitroglycerin 0.4 MG TAB.SUBL SL PRN (16:47)
[2018-12-26] MEDS ORDERED: tiZANidine 4 MG TABLET PO PRN (16:47)
[2018-12-26] MEDS ORDERED: *HR* Dextrose 50 % in Water (Syg) 50 ML SYRINGE IVP PRN (16:54)
[2018-12-26] MEDS ORDERED: Dextrose Gel 15 GM/37.5 ML TUBE PO PRN ×2 (16:54)
[2018-12-26] MEDS ORDERED: D5% in Water 1,000 ML IVC PRN (16:54)
[2018-12-26 17:59] LABS: INR 2.4; Prothrombin Time 27.4 Seconds (9.4-12.1)
[2018-12-26] MEDS ORDERED: *HR* Warfarin 3 MG TABLET PO SCH (18:00)
[2018-12-26] MEDS ORDERED: Warfarin perPT PO PRN (18:00)
[2018-12-26] MEDS: Gabapentin 400 MG CAPSULE PO SCH (20:50)
[2018-12-26] MEDS: Insulin LISPRO 300 UNITS/3 ML VIAL SQ SCH ×2 (20:51→20:59)
[2018-12-26] MEDS: Ranolazine 500 MG TAB.ER.12H PO SCH (20:51)
[2018-12-27] MEDS ORDERED: Acetaminophen IV 1,000 MG/100 ML INFUS..BTL IVPB ONE (03:13)
[2018-12-27 04:16] LABS: Hemoglobin 13.4 g/dL (12.9-16.9); Mean Corpuscular HGB Conc 32.7 g/dL (31.6-35.5); Mean Corpuscular Hemoglobin 28.5 pg (28.0-33.3); Mean Corpuscular Volume 87.2 fL (83.0-100.0); Mean Platelet Volume 10.4 fL (9.4-12.4); Platelet Count 331 K/mcL (140-400); Red Cell Distribution Width 13.3 % (11.5-14.5); White Blood Count 8.7 K/mcL (4.3-11.1)
[2018-12-27 04:22] LABS: INR 2.3; Prothrombin Time 26.2 Seconds (9.4-12.1)
[2018-12-27 04:29] LABS: BUN/Creatinine Ratio 15 (6-26); Blood Urea Nitrogen 15 mg/dL (6-20); Calcium 9.2 mg/dL (8.6-10.3); Carbon Dioxide 28 mEq/L (23-29); Chloride 100 mEq/L (98-107); Glucose 245 mg/dL (70-105); Magnesium 1.8 mg/dL (1.6-2.6); Osmolality,Calculated 289 (280-300); Potassium 4.8 mEq/L (3.5-5.1); Sodium 135 mEq/L (136-145); eGFR For African Americans > 60 (> 60); eGFR For Non-African Americans > 60 (> 60)
[2018-12-27] MEDS: Aspirin 81 MG TAB.CHEW PO SCH (10:09)
[2018-12-27] MEDS: Gabapentin 400 MG CAPSULE PO SCH ×3 (10:09→21:05)
[2018-12-27] MEDS: Ranolazine 500 MG TAB.ER.12H PO SCH ×2 (10:09→21:05)
[2018-12-27] MEDS: Insulin LISPRO 300 UNITS/3 ML VIAL SQ SCH ×7 (10:11→21:06)
[2018-12-27] MEDS: Isosorbide MONOnitrate (24 HR) 30 MG TAB.ER.24H PO SCH (12:27)
[2018-12-27] MEDS: *HR* OxyCODONE/APAP 5/325 TABLET PO PRN (12:27)
[2018-12-27] MEDS ORDERED: *HR* Warfarin 3 MG TABLET PO SCH (18:00)
[2018-12-27] MEDS ORDERED: *HR* Warfarin 3 MG TABLET PO ONE (18:00)
[2018-12-28 05:28] LABS: INR 2.1; Prothrombin Time 23.4 Seconds (9.4-12.1)
[2018-12-28 08:14] VITALS: BP 121/76
[2018-12-28] MEDS: Gabapentin 400 MG CAPSULE PO SCH (08:31)
[2018-12-28] MEDS: Aspirin 81 MG TAB.CHEW PO SCH (08:31)
[2018-12-28] MEDS: Ranolazine 500 MG TAB.ER.12H PO SCH (08:31)
[2018-12-28] MEDS: *HR* OxyCODONE/APAP 5/325 TABLET PO PRN (08:31)
[2018-12-28] MEDS: Isosorbide MONOnitrate (24 HR) 30 MG TAB.ER.24H PO SCH (08:31)
[2018-12-28] MEDS: Insulin LISPRO 300 UNITS/3 ML VIAL SQ SCH ×2 (08:32)
== END 2018-12-28 16:56 | disposition home or self-care (01) ==
LOC: EMEROOARM 15:03 → 3BNU 15:03 → SUATTDRO 16:40 → 3BNU 17:51
PROVIDERS: ADMIT Internal Medicine; ATTEND Internal Medicine

== ENCOUNTER 2019-01-08 16:18 | Inpatient (IN) ==
[2019-01-08] MEDS ORDERED: 0.9 % Sodium Chloride 1,000 ML IVC ONE ×2 (16:28→20:22)
[2019-01-08] MEDS ORDERED: Isovue-370 500 ML BOTTLE IVP ONE ×2 (16:30→20:23)
--- NOTE | 2019-01-08 16:31 | Emergency Department Note ---
Disposition Clinical Impression: Febrile illness, Right foot infection Diabetic foot ulcer Qualifiers: Diabetic foot ulcer location: midfoot Laterality: right Disposition: Admitted As Inpatient Referrals: Michelle Barrios CNP [Primary Care Provider] - Forms: ED Satisfaction Letter Time of Disposition: 19:03 General Adult HPI - General Stated complaint: fever Time Seen by Provider: 01/08/19 16:22 - Related Data Home Medications Medication Instructions Recorded Confirmed Tizanidine HCl [Zanaflex] 4 mg PO Q8HR PRN 05/15/17 12/26/18 Albuterol Sulfate [Ventolin Hfa] 2 puff IH Q6H PRN 07/25/18 12/26/18 DULoxetine [Cymbalta] 30 mg PO DAILY 07/25/18 12/26/18 Gabapentin 800 mg PO TID 07/25/18 12/26/18 Insulin ASPART [Novolog Flexpen] 20 unit SQ QIDAC 07/25/18 12/26/18 Omeprazole [PriLOSEC] 40 mg PO HS 07/25/18 12/26/18 Clopidogrel [Plavix] 75 mg PO DAILY 08/27/18 12/26/18 Warfarin [Coumadin] 6 mg PO SUTUWEFR 10/01/18 12/26/18 Warfarin [Coumadin] 3 mg PO MOTHSA 10/02/18 12/26/18 Lisinopril [Zestril] 10 mg PO DAILY 10/29/18 12/26/18 Amitriptyline [Elavil] 50 mg PO HS 12/26/18 12/26/18 Dulaglutide [Trulicity] 1.5 mg SQ FR 12/26/18 12/26/18 Metoprolol [Lopressor] 12.5 mg PO BID 12/26/18 12/26/18 Previous Rx's Medication Instructions Recorded Aspirin 81 mg PO DAILY tab.chew 07/27/18 Atorvastatin Calcium 80 mg PO HS #30 tablet 07/27/18 Nitroglycerin 0.4 mg SL Q5M PRN #30 tab.subl 07/27/18 Isosorbide MONOnitrate (24 HR) 30 mg PO DAILY #30 tab.er.24h 12/28/18 [Imdur] Ranolazine [Ranexa] 1,000 mg PO BID #60 tab.er.12h 12/28/18 Allergies Allergy/AdvReac Type Severity Reaction Status Date / Time No Known Allergies Allergy Verified 09/30/18 16:20 Past Medical History - Past Medical History Medical history: Reports: coronary artery disease, diabetes, GERD, hypertension, myocardial infarction Surgical history: Reports: no surgical history Psychiatric history: Reports: depression - Social History Smoking Status: Former smoker Smokeless Tobacco Status: Yes (Chew) Alcohol use: Reports: none Drug use: Reports: none Course Vital Signs Temperature 102.9 F H 01/08/19 16:24 Pulse Rate 99 01/08/19 16:24 Respiratory Rate 18 01/08/19 16:24 Blood Pressure 155/88 01/08/19 16:24 O2 Sat by Pulse Oximetry 99 01/08/19 16:24 Temperature 101.8 F H 01/08/19 18:16 Pulse Rate 99 01/08/19 18:16 Respiratory Rate 18 01/08/19 18:16 Blood Pressure 148/84 01/08/19 18:16 O2 Sat by Pulse Oximetry 100 01/08/19 18:16 Oxygen Delivery Oxygen Delivery Room Air Medical Decision Making - Lab Data Result diagrams: 01/08/19 16:41 01/08/19 16:41 Lab Results 01/08/19 01/08/19 01/08/19 Range/Units 16:27 16:41 16:41 WBC 15.1 H (4.3-11.1) K/mcL RBC 4.45 (4.19-5.50) M/mcL Hgb 12.7 L (12.9-16.9) g/dL Hct 38.5 (37.5-50.1) % MCV 86.5 (83.0-100.0) fL MCH 28.5 (28.0-33.3) pg MCHC 33.0 (31.6-35.5) g/dL RDW 13.1 (11.5-14.5) % Plt Count 396 (140-400) K/mcL MPV 10.5 (9.4-12.4) fL Immature Gran % 0.3 (0-4) % Seg Neutrophils % 81.7 % Lymphocytes % 7.9 % Monocytes % 8.9 % Eosinophils % 0.7 % Basophils % 0.5 % Neutrophils # 12.3 H (1.6-8.9) K/mcL Lymphocytes # 1.2 (0.6-4.6) K/mcL Monocytes # 1.3 (0.0-1.3) K/mcL Eosinophils # 0.1 (0.0-0.6) K/mcL Basophils # 0.1 (0.0-0.2) K/mcL PT 16.8 H (9.4-12.1) Seconds INR 1.5 APTT 30.9 (26.0-36.0) Seconds Sodium (136-145) mEq/L Potassium (3.5-5.1) mEq/L Chloride (98-107) mEq/L Carbon Dioxide (23-29) mEq/L BUN (6-20) mg/dL Creatinine (0.70-1.30) mg/dL Est GFR ( Amer) (> 60) Est GFR (Non-Af Amer) (> 60) BUN/Creatinine Ratio (6-26) Glucose (70-105) mg/dL POC Glucose 190 H (70-99) mg/dL Calculated Osmolality (280-300) Lactic Acid (0.5-2.2) mmol/L Calcium (8.6-10.3) mg/dL Phosphorus (2.7-4.5) mg/dL Magnesium (1.6-2.6) mg/dL Total Bilirubin (0.3-1.0) mg/dL Direct Bilirubin (0.0-0.2) mg/dL Indirect Bilirubin (0.0-1.2) mg/dL AST (13-39) Units/L ALT (7-52) Units/L Alkaline Phosphatase (34-104) Units/L Troponin I (< 0.04) ng/mL Serum Total Protein (6.4-8.9) g/dL Albumin (3.5-5.7) g/dL Globulin (2.4-3.5) g/dL Albumin/Globulin Ratio (1.1-2.2) Lipase (11-82) Units/L Urine Color (Yellow) Urine Clarity (Clear) Urine pH (5.0-8.0) pH Units Ur Specific [place] (1.010-1.025) Urine Protein (Neg-Trace) mg/dL Urine Glucose (UA) (Normal) mg/dL Urine Ketones (Negative) mg/dL Urine Blood (Negative) Urine Nitrite (Negative) Urine Bilirubin (Negative) Urine Urobilinogen (Normal) mg/dL Ur Leukocyte Esterase (Negative) Ur Culture Indicated? (NO) 01/08/19 01/08/19 01/08/19 Range/Units 16:41 16:41 17:16 WBC (4.3-11.1) K/mcL RBC (4.19-5.50) M/mcL Hgb (12.9-16.9) g/dL Hct (37.5-50.1) % MCV (83.0-100.0) fL MCH (28.0-33.3) pg MCHC (31.6-35.5) g/dL RDW (11.5-14.5) % Plt Count (140-400) K/mcL MPV (9.4-12.4) fL Immature Gran % (0-4) % Seg Neutrophils % % Lymphocytes % % Monocytes % % Eosinophils % % Basophils % % Neutrophils # (1.6-8.9) K/mcL Lymphocytes # (0.6-4.6) K/mcL Monocytes # (0.0-1.3) K/mcL Eosinophils # (0.0-0.6) K/mcL Basophils # (0.0-0.2) K/mcL PT (9.4-12.1) Seconds INR APTT (26.0-36.0) Seconds Sodium 133 L (136-145) mEq/L Potassium 5.1 (3.5-5.1) mEq/L Chloride 99 (98-107) mEq/L Carbon Dioxide 26 (23-29) mEq/L BUN 16 (6-20) mg/dL Creatinine 1.07 (0.70-1.30) mg/dL Est GFR ( Amer) > 60 (> 60) Est GFR (Non-Af Amer) > 60 (> 60) BUN/Creatinine Ratio 15 (6-26) Glucose 190 H (70-105) mg/dL POC Glucose (70-99) mg/dL Calculated Osmolality 282 (280-300) Lactic Acid 1.9 (0.5-2.2) mmol/L Calcium 9.4 (8.6-10.3) mg/dL Phosphorus 2.3 L (2.7-4.5) mg/dL Magnesium 1.4 L (1.6-2.6) mg/dL Total Bilirubin 0.4 (0.3-1.0) mg/dL Direct Bilirubin 0.1 (0.0-0.2) mg/dL Indirect Bilirubin 0.3 (0.0-1.2) mg/dL AST 10 L (13-39) Units/L ALT 7 (7-52) Units/L Alkaline Phosphatase 88 (34-104) Units/L Troponin I 0.06 H* (< 0.04) ng/mL Serum Total Protein 7.5 (6.4-8.9) g/dL Albumin 3.8 (3.5-5.7) g/dL Globulin 3.7 H (2.4-3.5) g/dL Albumin/Globulin Ratio 1.0 L (1.1-2.2) Lipase 11 (11-82) Units/L Urine Color Yellow (Yellow) Urine Clarity Clear (Clear) Urine pH 5.5 (5.0-8.0) pH Units Ur Specific [place] 1.015 (1.010-1.025) Urine Protein Negative (Neg-Trace) mg/dL Urine Glucose (UA) 500 H (Normal) mg/dL Urine Ketones Negative (Negative) mg/dL Urine Blood Negative (Negative) Urine Nitrite Negative (Negative) Urine Bilirubin Negative (Negative) Urine Urobilinogen Normal (Normal) mg/dL Ur Leukocyte Esterase Negative (Negative) Ur Culture Indicated? NO (NO) Attestation Statement - Attestation Attestation: I examined this patient and my medical decision-making was reviewed with the Resident Physician. I agree with the documented findings, disposition and treatment plan as described except to the extent set forth below. 48-year-old male presents from home to the ER via squad for shakiness and fever. Onset today. Slight suprapubic lower abdominal discomfort. No associated vomiting or diarrhea constipation. No urinary complaints. No hematuria. No skin changes. significant cough. We will do a full septic workup. CT abdomen and pelvis to evaluate for possible diverticular disease. Check urinalysis. Lactate. Patient looks on physical exam other than his right foot is red on the bottom and we did remove a staple that was stuck in his skin. he has severe neuropathy from DM and therefore he couldn't feel this. i suspect he is getting an infection in his R foot. will also do plain film right foot. admit. cefepime ordered for psudeomonal coverage. We will start him on IV fluids and fever control.
--- NOTE | 2019-01-08 16:35 | Emergency Department Note ---
Disposition Clinical Impression: Febrile illness, Right foot infection Diabetic foot ulcer Qualifiers: Diabetic foot ulcer location: midfoot Diabetes mellitus type: type 2 Laterality: right Non-pressure ulcer stage: unspecified non-pressure ulcer stage Qualified Code(s): E11.621 - Type 2 diabetes mellitus with foot ulcer; L97.419 - Non-pressure chronic ulcer of right heel and midfoot with unspecified severity Disposition: Admitted As Inpatient Time of Disposition: 20:02 General Adult HPI - General Chief complaint: ED Fever Stated complaint: fever Time Seen by Provider: 01/08/19 16:22 Source: patient Mode of arrival: private vehicle Limitations: no limitations Nursing Notes Reviewed: Yes Vital Signs Reviewed: Yes - History of Present Illness HPI Narrative: 48-year-old male with a past medical history of diabetes, CAD, peripheral neuropathy that reports sudden onset of shaking of all 4 extremities while he was sitting outside today. Patient denies sore throat, cough, congestion. Patient endorses runny nose, suprapubic pain. Denies diarrhea, constipation, nausea, vomiting. Patient is coming from home. Patient reports that he had cardiac stents placed in July, he is on Coumadin, he was admitted to the hospital last week for subtherapeutic INR. Pain Scale: 10 - Related Data Home Medications Medication Instructions Recorded Confirmed Tizanidine HCl [Zanaflex] 4 mg PO Q8HR PRN 05/15/17 01/08/19 Albuterol Sulfate [Ventolin Hfa] 2 puff IH Q6H PRN 07/25/18 01/08/19 DULoxetine [Cymbalta] 30 mg PO DAILY 07/25/18 01/08/19 Gabapentin 800 mg PO TID 07/25/18 01/08/19 Insulin ASPART [Novolog Flexpen] 20 unit SQ QIDAC 07/25/18 01/08/19 Omeprazole [PriLOSEC] 40 mg PO HS 07/25/18 01/08/19 Clopidogrel [Plavix] 75 mg PO DAILY 08/27/18 01/08/19 Warfarin [Coumadin] 6 mg PO SUTUWEFR 10/01/18 01/08/19 Warfarin [Coumadin] 3 mg PO MOTHSA 10/02/18 01/08/19 Lisinopril [Zestril] 10 mg PO DAILY 10/29/18 01/08/19 Amitriptyline [Elavil] 50 mg PO HS 12/26/18 01/08/19 Dulaglutide [Trulicity] 1.5 mg SQ FR 12/26/18 01/08/19 Metoprolol [Lopressor] 12.5 mg PO BID 12/26/18 01/08/19 Previous Rx's Medication Instructions Recorded Aspirin 81 mg PO DAILY tab.chew 07/27/18 Atorvastatin Calcium 80 mg PO HS #30 tablet 07/27/18 Nitroglycerin 0.4 mg SL Q5M PRN #30 tab.subl 07/27/18 Isosorbide MONOnitrate (24 HR) 30 mg PO DAILY #30 tab.er.24h 12/28/18 [Imdur] Ranolazine [Ranexa] 1,000 mg PO BID #60 tab.er.12h 12/28/18 Allergies Allergy/AdvReac Type Severity Reaction Status Date / Time No Known Allergies Allergy Verified 09/30/18 16:20 Review of Systems: In addition to that documented in the HPI above, the additional ROS was obtained: Constitutional: Denies fevers or chills but has a fever of 102.2 Reports extremity shaking Eyes: Denies vision changes ENMT: Denies sore throat Reports runny nose CV: Denies chest pain Resp: Denies SOB GI: Denies vomiting or diarrhea this week, had diarrhea last week : Denies painful urination MSK: Denies recent trauma Skin: Denies new rashes Neuro: Denies new numbness or tingling or weakness Reports chronic extremity numbness/tingling Past Medical History - Past Medical History Attestation: Yes The following information was validated with the patient. Medical history: Reports: coronary artery disease, diabetes, GERD, hypertension, myocardial infarction Surgical history: Reports: no surgical history Psychiatric history: Reports: no psych history, depression - Social History Smoking Status: Former smoker Smokeless Tobacco Status: Yes (Chew) Alcohol use: Reports: none Drug use: Reports: none Physical Exam General: A&O x 3. No acute distress. Well developed, well nourished. Skin feels warm to touch. Head: atraumatic, normocephalic. ENT: No conjunctival injection, no scleral icterus. PERRLA. EOMI. Oropharynx non- erythematous. mucous membranes moist. Substance inside mouth consistent with chewing tobacco, pt denies Neuro: No focal deficits, no speech deficit, no facial droop, mentating well. BUE/BLE Str 5/5. Pulm: Lungs CTAB A/P. No wheezes, rales, ronchi. Cardio: RRR with systolic murmur. Chest not tender to palpation. Abd: Soft, non-distended. Normoactive bowel sounds. Tender to palpation in suprapubic area. No guarding. Non rigid. Extremities: Radial pulses 2+ bonilla, dorsalis pedis/posterior tibialis 2+ bonilla. No LE edema. No cyanosis, clubbing. Skin: hot, dry, intact. No rashes. Psych: Appropriate mood and affect. Answers questions appropriately. Cooperative with exam. - General Limitations: no limitations General appearance: alert Course Vital Signs Temperature 102.9 F H 01/08/19 16:24 Pulse Rate 99 01/08/19 16:24 Respiratory Rate 18 01/08/19 16:24 Blood Pressure 155/88 01/08/19 16:24 O2 Sat by Pulse Oximetry 99 01/08/19 16:24 Temperature 100.2 F H 01/08/19 19:00 Pulse Rate 99 01/08/19 19:00 Respiratory Rate 18 01/08/19 19:00 Blood Pressure 161/92 01/08/19 19:00 O2 Sat by Pulse Oximetry 98 01/08/19 19:00 Oxygen Delivery Oxygen Delivery Room Air Medical Decision Making - [facility] Narrative Medical decision making narrative: 1636: 48M with Pmhx of CAD, DM, that reports sudden onset of extremity shaking. Pt has a fever and complains of suprapubic pain and runny nose. Will perform sepsis workup. 1902: CXR, Abd/Pelvis CT non-diagnostic with the exception of bladder wall thickening. Pt's UA was not consistent with infection, and pt denies dysuria. When examining patient's feet, there was a staple on the plantar aspect of the right foot, which I removed. There is the beginning of a foot ulcer on the plantar aspect as well, and the right foot appears more swollen, erythematous, and is warmer when compared to left. 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 Will obtain 2V of the Rt foot, and start him on cefepime to cover staph/strep/pseudomonas. Will admit to hospitalist for IV antibiotics. 2000: Pt was admitted to hospitalist Dr. Peña, who agreed to accept the patient to his service. Hospitalist requests magnesium and phosphorous repletion. Results of the workup including any imaging and/or labwork was shared with the patient at bedside. Patient was given an opportunity to ask questions at bedside and all of their concerns were addressed. Patient verbalized understanding and agreement with plan of care. Pt remained stable while in the department. - Medical Records Medical records reviewed: Yes I reviewed the patient's medical records. - Lab Data Lab results reviewed: Yes I reviewed the patient's lab results. Result diagrams: 01/08/19 16:41 01/08/19 16:41 Lab Results 01/08/19 01/08/19 01/08/19 Range/Units 16:27 16:41 16:41 WBC 15.1 H (4.3-11.1) K/mcL RBC 4.45 (4.19-5.50) M/mcL Hgb 12.7 L (12.9-16.9) g/dL Hct 38.5 (37.5-50.1) % MCV 86.5 (83.0-100.0) fL MCH 28.5 (28.0-33.3) pg MCHC 33.0 (31.6-35.5) g/dL RDW 13.1 (11.5-14.5) % Plt Count 396 (140-400) K/mcL MPV 10.5 (9.4-12.4) fL Immature Gran % 0.3 (0-4) % Seg Neutrophils % 81.7 % Lymphocytes % 7.9 % Monocytes % 8.9 % Eosinophils % 0.7 % Basophils % 0.5 % Neutrophils # 12.3 H (1.6-8.9) K/mcL Lymphocytes # 1.2 (0.6-4.6) K/mcL Monocytes # 1.3 (0.0-1.3) K/mcL Eosinophils # 0.1 (0.0-0.6) K/mcL Basophils # 0.1 (0.0-0.2) K/mcL PT 16.8 H (9.4-12.1) Seconds INR 1.5 APTT 30.9 (26.0-36.0) Seconds Sodium (136-145) mEq/L Potassium (3.5-5.1) mEq/L Chloride (98-107) mEq/L Carbon Dioxide (23-29) mEq/L BUN (6-20) mg/dL Creatinine (0.70-1.30) mg/dL Est GFR ( Amer) (> 60) Est GFR (Non-Af Amer) (> 60) BUN/Creatinine Ratio (6-26) Glucose (70-105) mg/dL POC Glucose 190 H (70-99) mg/dL Calculated Osmolality (280-300) Lactic Acid (0.5-2.2) mmol/L Calcium (8.6-10.3) mg/dL Phosphorus (2.7-4.5) mg/dL Magnesium (1.6-2.6) mg/dL Total Bilirubin (0.3-1.0) mg/dL Direct Bilirubin (0.0-0.2) mg/dL Indirect Bilirubin (0.0-1.2) mg/dL AST (13-39) Units/L ALT (7-52) Units/L Alkaline Phosphatase (34-104) Units/L Troponin I (< 0.04) ng/mL Serum Total Protein (6.4-8.9) g/dL Albumin (3.5-5.7) g/dL Globulin (2.4-3.5) g/dL Albumin/Globulin Ratio (1.1-2.2) Lipase (11-82) Units/L Urine Color (Yellow) Urine Clarity (Clear) Urine pH (5.0-8.0) pH Units Ur Specific [place] (1.010-1.025) Urine Protein (Neg-Trace) mg/dL Urine Glucose (UA) (Normal) mg/dL Urine Ketones (Negative) mg/dL Urine Blood (Negative) Urine Nitrite (Negative) Urine Bilirubin (Negative) Urine Urobilinogen (Normal) mg/dL Ur Leukocyte Esterase (Negative) Ur Culture Indicated? (NO) 01/08/19 01/08/19 01/08/19 Range/Units 16:41 16:41 17:16 WBC (4.3-11.1) K/mcL RBC (4.19-5.50) M/mcL Hgb (12.9-16.9) g/dL Hct (37.5-50.1) % MCV (83.0-100.0) fL MCH (28.0-33.3) pg MCHC (31.6-35.5) g/dL RDW (11.5-14.5) % Plt Count (140-400) K/mcL MPV (9.4-12.4) fL Immature Gran % (0-4) % Seg Neutrophils % % Lymphocytes % % Monocytes % % Eosinophils % % Basophils % % Neutrophils # (1.6-8.9) K/mcL Lymphocytes # (0.6-4.6) K/mcL Monocytes # (0.0-1.3) K/mcL Eosinophils # (0.0-0.6) K/mcL Basophils # (0.0-0.2) K/mcL PT (9.4-12.1) Seconds INR APTT (26.0-36.0) Seconds Sodium 133 L (136-145) mEq/L Potassium 5.1 (3.5-5.1) mEq/L Chloride 99 (98-107) mEq/L Carbon Dioxide 26 (23-29) mEq/L BUN 16 (6-20) mg/dL Creatinine 1.07 (0.70-1.30) mg/dL Est GFR ( Amer) > 60 (> 60) Est GFR (Non-Af Amer) > 60 (> 60) BUN/Creatinine Ratio 15 (6-26) Glucose 190 H (70-105) mg/dL POC Glucose (70-99) mg/dL Calculated Osmolality 282 (280-300) Lactic Acid 1.9 (0.5-2.2) mmol/L Calcium 9.4 (8.6-10.3) mg/dL Phosphorus 2.3 L (2.7-4.5) mg/dL Magnesium 1.4 L (1.6-2.6) mg/dL Total Bilirubin 0.4 (0.3-1.0) mg/dL Direct Bilirubin 0.1 (0.0-0.2) mg/dL Indirect Bilirubin 0.3 (0.0-1.2) mg/dL AST 10 L (13-39) Units/L ALT 7 (7-52) Units/L Alkaline Phosphatase 88 (34-104) Units/L Troponin I 0.06 H* (< 0.04) ng/mL Serum Total Protein 7.5 (6.4-8.9) g/dL Albumin 3.8 (3.5-5.7) g/dL Globulin 3.7 H (2.4-3.5) g/dL Albumin/Globulin Ratio 1.0 L (1.1-2.2) Lipase 11 (11-82) Units/L Urine Color Yellow (Yellow) Urine Clarity Clear (Clear) Urine pH 5.5 (5.0-8.0) pH Units Ur Specific [place] 1.015 (1.010-1.025) Urine Protein Negative (Neg-Trace) mg/dL Urine Glucose (UA) 500 H (Normal) mg/dL Urine Ketones Negative (Negative) mg/dL Urine Blood Negative (Negative) Urine Nitrite Negative (Negative) Urine Bilirubin Negative (Negative) Urine Urobilinogen Normal (Normal) mg/dL Ur Leukocyte Esterase Negative (Negative) Ur Culture Indicated? NO (NO) - Radiology Data Radiology results reviewed: Yes I reviewed the patient's radiology results. Chest X-Ray 01/08/19 16:29 IMPRESSION: No acute process. D/ / Gaston Daniel MD / Gaston Daniel MD Interpreting Provider: Gaston Daniel MD - EKG Data EKG #1 EKG attestation: Yes I reviewed and interpreted this EKG. EKG results narrative: Heart rate 95, rhythm sinusmachine read rhythm as atrial fibrillation, do not agree with machines interpretation given that there is baseline wanderaccess normal. AK less than 200, QRS 85, QTC 391. Less than [address] elevation in V3, V4. No ST depression noted. When compared with previous EKG dated 12/26/[address] elevation in leads V1, V2, V3, all less than 1 mm. Old study also shows elevation in leads 3 which may or may not be evident on current started be given baseline wander. We will order repeat EKG.
[2019-01-08 16:56] LABS: Basophils # 0.1 K/mcL (0.0-0.2); Basophils % 0.5 %; Eosinophils # 0.1 K/mcL (0.0-0.6); Eosinophils % 0.7 %; Hematocrit 38.5 % (37.5-50.1); Hemoglobin 12.7 g/dL (12.9-16.9); Immature Granulocytes % 0.3 % (0-4); Lymphocytes # 1.2 K/mcL (0.6-4.6); Lymphocytes % 7.9 %; Mean Corpuscular Hemoglobin 28.5 pg (28.0-33.3); Mean Corpuscular Volume 86.5 fL (83.0-100.0); Mean Platelet Volume 10.5 fL (9.4-12.4); Monocytes # 1.3 K/mcL (0.0-1.3); Monocytes % 8.9 %; Neutrophils # 12.3 K/mcL (1.6-8.9); Platelet Count 396 K/mcL (140-400); Red Blood Count 4.45 M/mcL (4.19-5.50); Red Cell Distribution Width 13.1 % (11.5-14.5); Segmented Neutrophils % 81.7 %; White Blood Count 15.1 K/mcL (4.3-11.1)
[2019-01-08 17:04] LABS: INR 1.5; Prothrombin Time 16.8 Seconds (9.4-12.1)
[2019-01-08 17:07] LABS: Activated Partial Thrombo Time 30.9 Seconds (26.0-36.0)
[2019-01-08 17:23] LABS: Alanine Aminotransferase 7 Units/L (7-52); Albumin 3.8 g/dL (3.5-5.7); Alkaline Phosphatase 88 Units/L (34-104); Aspartate Amino Transferase 10 Units/L (13-39); BUN/Creatinine Ratio 15 (6-26); Bilirubin,Direct 0.1 mg/dL (0.0-0.2); Bilirubin,Indirect 0.3 mg/dL (0.0-1.2); Bilirubin,Total 0.4 mg/dL (0.3-1.0); Blood Urea Nitrogen 16 mg/dL (6-20); Calcium 9.4 mg/dL (8.6-10.3); Carbon Dioxide 26 mEq/L (23-29); Chloride 99 mEq/L (98-107); Globulin 3.7 g/dL (2.4-3.5); Glucose 190 mg/dL (70-105); Lipase 11 Units/L (11-82); Magnesium 1.4 mg/dL (1.6-2.6); Osmolality,Calculated 282 (280-300); Phosphorous 2.3 mg/dL (2.7-4.5); Potassium 5.1 mEq/L (3.5-5.1); Sodium 133 mEq/L (136-145); Total Protein 7.5 g/dL (6.4-8.9); Troponin I 0.06 ng/mL (< 0.04); eGFR For African Americans > 60 (> 60); eGFR For Non-African Americans > 60 (> 60)
[2019-01-08 17:28] LABS: Bilirubin,Urine Negative (Negative); Blood,Urine Negative (Negative); Clarity,Urine Clear (Clear); Color,Urine Yellow (Yellow); Glucose,Urine (UA) 500 mg/dL (Normal); Ketones,Urine Negative (Negative); Leukocyte Esterase,Urine Negative (Negative); Nitrite,Urine Negative (Negative); PH,Urine 5.5 pH Units (5.0-8.0); Protein,Urine Negative (Neg-Trace); Specific Gravity,Urine 1.015 (1.010-1.025); Urobilinogen,Urine Normal (Normal)
[2019-01-08] MEDS ORDERED: Cefepime HCl 2,000 MG in 0.9 % Sodium Chloride Mini Bag 100 ML IVPB STA (19:02)
[2019-01-08] MEDS ORDERED: *HR* OxyCODONE/APAP 5/325 TABLET PO ONE (19:03)
[2019-01-08] MEDS ORDERED: Nitroglycerin 0.4 MG TAB.SUBL SL PRN (20:24)
[2019-01-08] MEDS ORDERED: tiZANidine 4 MG TABLET PO PRN (20:24)
[2019-01-08] MEDS ORDERED: Aspirin 325 MG TABLET PO ONE (20:35)
[2019-01-08] MEDS ORDERED: *HR* Dextrose 50 % in Water (Syg) 50 ML SYRINGE IVP PRN (20:49)
[2019-01-08] MEDS ORDERED: Dextrose Gel 15 GM/37.5 ML TUBE PO PRN ×2 (20:49)
--- NOTE | 2019-01-08 20:54 | Internal Med History&Physical ---
Date of Encounter: 01/08/19 Time of Encounter: 20:54 Internal Medicine - H&P: HPI Chief complaint: fever Admitted From: Home Plans for Post Hospital Care: Home History of present illness: Chaz Gaspar is a 48-year-old man with poorly controlled diabetes indicated by neuropathy, hypertension and severe three-vessel coronary artery disease with [address] and deemed to be a poor candidate for CABG because of poor vasculature. He also has an LV thrombus for which she is on warfarin an d was admitted here 2 weeks ago with complaints of chest pain for which medical optimization was recommended. He is brought to the emergency room today with a complaint of acute onset fever and chills that developed this afternoon while he was sitting outside doing nothing. He says the sensation came all over him and he became extremely fatigued and with malaise. He denied associated dysuria, d iarrhea, cough, chest pain, palpitations, sore throat, headache, nausea and vomiting. He did report some abdominal discomfort that was relieved after urinating. On arrival to the ER he was febrile at 102.5F and it gradually subsided. His chest x-ray revealed no pulmonary infiltrates and abdomen CT reported findings of thickened urinary bladder wall however his urinalysis was benign and thereby not indicative of infection. On further physical examination he was then found to have a somewhat erythematous right foot and noted to have an indwelling staple in the superior portion of his sole. He was unaware of this as he had no sensation in the area. This was taken out and a foot x-ray was done which confirmed the presence of soft tissue swelling. There was no discharge or abscess formation noted. He was given a dose of cefepime empirically. Lab work revealed her leukocyte count of 15.1 and a troponin elevation of 0.06. He is admitted for further observation. The time of my assessment he says he feels much better and back to baseline especially after receiving the pain medication. He offers no complaints at this time. Vitals: Reviewed General: Obese white man who appears notably disheveled and unkempt lying comfortably in bed in no acute distress. Skin: Warm and dry. HEENT: Moist mucous membranes. No conjunctivae pallor. Very poor oral dentition. Neck: No lymphadenopathy. No JVD. No carotid bruits. No palpable thyroid. Chest: Normal thoracic expansion. Normal breath sounds. Clear to auscultation. Heart: Normal S1 & S2; rhythmic. No rubs or murmurs. Abdomen: Non-distended, soft and non-tender to palpation. No peritoneal reaction. Extremities: No clubbing, cyanosis. Right foot with some soft tissue swelling diffusely and somewhat more pink in color, warm to touch but not tender to palpation. 2cm indurated callus formation noted on the plantar surface in its superior aspect around where the staple was found. No drainage noted or palpable underlying mass. Neurological: Awake, alert and oriented to person, place and time. No focal deficits. Psych: Affect appropriate. Assessment/Plan 1. Sepsis syndrome: As evidenced by fever and leukocytosis; suspected secondary to skin/soft tissue of the right foot presenting as a non-purulent cellulitis. The presence of a foreign body may have played a role with introduction of bacteria from the surface and was likely present for a long time given his lack of sensation there. Will get a contrast-enhanced CT scan of the foot for further evaluation to ensure there are no other foreign bodies within and in the interim keep him on empiric antimicrobials. Blood cultures have been obtained. He has no respiratory, gastrointestinal or genitourinary symptoms to otherwise find as a cause of infection. While his poor dentition is noted, there do not appear to be acute inflammatory signs. 2. Elevated troponin: Noted and could presumably be from his sepsis syndrome. However given his underlying significant cardiac history and suspected non- adherence to medications as evidenced by his subtherapeutic INR, will give a loading dose of aspirin and trend the troponin level as review of old records reveal he has not actually had an elevated level previously despite his plethora of admissions for numerous reasons. 3. Diabetes: Poorly controlled with an A1C of 10.3%. Will place on sliding scale for now. 4. Coronary artery disease: Resume dual antiplatelet therapy, ranolazine and metoprolol. 5. LV thrombus: Last noted in echo of September 2018. Will resume warfarin. Past Med Surg Social Fam HX - Past Medical History Medical history: coronary artery disease, diabetes, GERD, hypertension, myocardial infarction Additional medical history: PE Psychiatric history: no psych history, depression - Past Surgical History Surgical History: no surgical history Additional surgical history: stent - Social History Smoking Status: Former smoker Smokeless Tobacco Status: Yes (Chew) Alcohol use: none Drug use: none - Family History Mother Living Status: Hx Family Cardiac Disorders: Yes (HTN) Hx Family Endocrine Disorder: Yes (DM) Internal Medicine - H&P: Meds Tizanidine HCl [Zanaflex] 4 mg PO Q8HR PRN 05/15/17 [History] Albuterol Sulfate [Ventolin Hfa] 2 puff IH Q6H PRN 07/25/18 [History] DULoxetine [Cymbalta] 30 mg PO DAILY 07/25/18 [History] Gabapentin 800 mg PO TID 07/25/18 [History] Insulin ASPART [Novolog Flexpen] 20 unit SQ QIDAC 07/25/18 [History] Omeprazole [PriLOSEC] 40 mg PO HS 07/25/18 [History] Aspirin 81 mg PO DAILY tab.chew 07/27/18 [Rx] Atorvastatin Calcium 80 mg PO HS #30 tablet 07/27/18 [Rx] Nitroglycerin 0.4 mg SL Q5M PRN #30 tab.subl 07/27/18 [Rx] Clopidogrel [Plavix] 75 mg PO DAILY 08/27/18 [History] Warfarin [Coumadin] 6 mg PO SUTUWEFR 10/01/18 [History] Warfarin [Coumadin] 3 mg PO MOTHSA 10/02/18 [History] Lisinopril [Zestril] 10 mg PO DAILY 10/29/18 [History] Amitriptyline [Elavil] 50 mg PO HS 12/26/18 [History] Dulaglutide [Trulicity] 1.5 mg SQ FR 12/26/18 [History] Metoprolol [Lopressor] 12.5 mg PO BID 12/26/18 [History] Isosorbide MONOnitrate (24 HR) [Imdur] 30 mg PO DAILY #30 tab.er.24h 12/28/18 [Rx] Ranolazine [Ranexa] 1,000 mg PO BID #60 tab.er.12h 12/28/18 [Rx] Allergy/AdvReac Type Severity Reaction Status Date / Time No Known Allergies Allergy Verified 09/30/18 16:20 All Systems PM: A 10-system review of systems was performed and is negative for pertinent findings except as documented above in the HPI. - Constitutional Vitals: Temp Pulse Resp BP Pulse Ox 100.2 F H 99 18 161/92 98 01/08/19 19:00 01/08/19 19:00 01/08/19 19:00 01/08/19 19:00 01/08/19 19:00 Exam: . Internal Med - H&P Results - Labs CBC & Chem 7: 01/08/19 16:41 01/08/19 16:41 Labs: Short CBC 01/08/19 Range/Units 16:41 WBC 15.1 H (4.3-11.1) K/mcL Hgb 12.7 L (12.9-16.9) g/dL Hct 38.5 (37.5-50.1) % Plt Count 396 (140-400) K/mcL Neutrophils # 12.3 H (1.6-8.9) K/mcL BMP 01/08/19 16:41 Sodium 133 L Potassium 5.1 Chloride 99 Carbon Dioxide 26 BUN 16 Creatinine 1.07 Glucose 190 H Calcium 9.4 Cardiac Enzymes 01/08/19 Range/Units 16:41 Troponin I 0.06 H* (< 0.04) ng/mL Liver Function 01/08/19 Range/Units 16:41 Total Bilirubin 0.4 (0.3-1.0) mg/dL Direct Bilirubin 0.1 (0.0-0.2) mg/dL AST 10 L (13-39) Units/L ALT 7 (7-52) Units/L Alkaline Phosphatase 88 (34-104) Units/L Albumin 3.8 (3.5-5.7) g/dL Urine 01/08/19 Range/Units 17:16 Urine Color Yellow (Yellow) Urine Clarity Clear (Clear) Urine pH 5.5 (5.0-8.0) pH Units Ur Specific [place] 1.015 (1.010-1.025) Urine Protein Negative (Neg-Trace) mg/dL Urine Glucose (UA) 500 H (Normal) mg/dL - Impressions ITS Impressions Chest X-Ray 01/08/19 16:29 IMPRESSION: No acute process. D/ / Gaston Daniel MD / Gaston Daniel MD Interpreting Provider: Gaston Daniel MD Abdomen/Pelvis CT 01/08/19 16:30 IMPRESSION: Mild to moderate thickening of the wall of the urinary bladder. This is a new finding from 07/18/2015 differential diagnosis includes hypertrophy from outlet obstruction and inflammatory change of cystitis. Tumor not entirely excluded. Clinical correlation and follow-up recommended. Cortical scarring in the posterior left kidney is a new finding compared with 07/18/2015. Slight heterogeneous cortical enhancement of the kidneys for which pyelonephritis cannot be excluded. No other acute finding in the abdomen/pelvis. D/ / Jaquan Raza MD / Jaquan Raza MD Interpreting Provider: Jaquan Raza MD Foot X-Ray 01/08/19 19:02 IMPRESSION: Soft tissue swelling with no acute or focal bony abnormality seen. D/ / Jumana Quinn Cha, MD / Jumana Quinn Cha, MD Interpreting Provider: Jumana Quinn Cha, MD - Time Spent With Patient Total time spent is greater than 50% in coordination of care (as documented) at patient's floor/unit and/or counseling patient:
[2019-01-08] MEDS: Insulin LISPRO 300 UNITS/3 ML VIAL SQ SCH (21:32)
[2019-01-08] MEDS: Gabapentin 400 MG CAPSULE PO SCH (21:42)
[2019-01-08] MEDS: Ranolazine 500 MG TAB.ER.12H PO SCH (21:42)
[2019-01-08] MEDS ORDERED: Acetaminophen 325 MG TABLET PO PRN (21:46)
[2019-01-09] MEDS ORDERED: 0.9 % Sodium Chloride 1,000 ML IVC ONE (00:39)
[2019-01-09] MEDS ORDERED: Ringers Solution, Lactated 1,000 ML IVC SCH (02:00)
[2019-01-09 05:31] LABS: Basophils # 0.1 K/mcL (0.0-0.2); Basophils % 0.6 %; Eosinophils # 0.1 K/mcL (0.0-0.6); Eosinophils % 0.8 %; Hematocrit 32.4 % (37.5-50.1); Immature Granulocytes % 0.5 % (0-4); Lymphocytes # 2.5 K/mcL (0.6-4.6); Lymphocytes % 21.1 %; Mean Corpuscular HGB Conc 32.4 g/dL (31.6-35.5); Mean Corpuscular Hemoglobin 28.2 pg (28.0-33.3); Mean Corpuscular Volume 87.1 fL (83.0-100.0); Monocytes # 1.5 K/mcL (0.0-1.3); Monocytes % 12.3 %; Neutrophils # 7.8 K/mcL (1.6-8.9); Platelet Count 334 K/mcL (140-400); Red Blood Count 3.72 M/mcL (4.19-5.50); Red Cell Distribution Width 13.6 % (11.5-14.5); Segmented Neutrophils % 64.7 %
[2019-01-09 05:34] LABS: Hemoglobin 10.5 g/dL (12.9-16.9)
[2019-01-09] MEDS: Cefepime HCl 2,000 MG in 0.9 % Sodium Chloride Mini Bag 100 ML IVPB SCH ×2 (05:36→18:21)
[2019-01-09 05:39] LABS: INR 1.6; Prothrombin Time 18.1 Seconds (9.4-12.1)
[2019-01-09 05:56] LABS: Magnesium 1.9 mg/dL (1.6-2.6); Phosphorous 4.2 mg/dL (2.7-4.5)
[2019-01-09 06:04] LABS: BUN/Creatinine Ratio 14 (6-26); Blood Urea Nitrogen 18 mg/dL (6-20); Calcium 8.3 mg/dL (8.6-10.3); Carbon Dioxide 23 mEq/L (23-29); Chloride 105 mEq/L (98-107); Glucose 265 mg/dL (70-105); Osmolality,Calculated 295 (280-300); Potassium 4.9 mEq/L (3.5-5.1); Sodium 137 mEq/L (136-145); Troponin I 0.13 ng/mL (< 0.04); eGFR For African Americans > 60 (> 60); eGFR For Non-African Americans 59 (> 60)
[2019-01-09] MEDS ORDERED: Isosorbide MONOnitrate (24 HR) 30 MG TAB.ER.24H PO SCH (09:00)
--- NOTE | 2019-01-09 10:07 | Podiatry Consult Note ---
Date of Encounter: 01/09/19 Time of Encounter: 10:04 Assessment and Plan (1) Cellulitis of right foot Current visit: Yes Status: Acute Assessment: Erythema and edema noted to right lower extremity Edema 2/4 Hyperkeratotic tissue noted to submetatarsal #3 WBC 12.0, no temp since 0000, max temp 102.9 Currently on vanc and maxipime, no history of MRSA documented CT negative for abscess or acute abnormality, showed foreign body that was removed in ER XR negative for acute abnormality Plan: Nursing to santos area of redness Debridement of callus completed at bedside, see below Minimal purulent drainage noted, wound cultures obtained, nursing to send to lab ESR, CRP ordered Will discuss with Dr. Vargas, at this time no plan for surgical intervention Cleansed right foot with 0.9 NS Callus lesion 1, submetatarsal #3 right foot, sharp cutting performed with a #15 scalpel blade to alleviate pressure and prevent ulceration Painted with betadine and covered with 4x4 dry gauze and medipore I have reviewed the chief complaint, vitals, family history, ROS, and any pertinent lab valuse related to office visit and medications. Verbal cosent was obtained for debridement of calluses to alleviate pressure, pain, and to prevent complications. Risks vs. benefits of callus debridement was covered with patient. Patient tolerated procedure well. No complications were encountered. Imaging: XR/XR foot 2V RT IMPRESSION: Soft tissue swelling with no acute or focal bony abnormality seen. D/ / Jumana Quinn Cha, MD / Jumana Quinn Cha, MD Interpreting Provider: Jumana Quinn Cha, MD R #: [id number] CT/CT foot RT w con IMPRESSION: 1. 9 mm and 3 mm linear foreign bodies in the soft tissues plantar to the 2nd metatarsal with adjacent fat stranding compatible with cellulitis versus sterile edema. No drainable fluid collection. 2. No acute osseous abnormality. D/ / David Fritz MD / David Fritz MD Interpreting Provider: David Fritz MD (2) Callus of foot Current visit: Yes Status: Acute See above History of Present Illness Chief complaint: Cellulitis HPI: Mr. Gaspar is a 48 year old male who presented to the ER yesterday with complaints of fevers and chills. Patient follows with the podiatry group. PMH of CAD, DM II, GERD, HTN, MT, chronic diabetic ulcers and PE. Briefly, patient reports yesterday he began feeling feverish and started shivering and having chills. States upon evaluation in the ER, he was found to have a staple in his foot. Reports neuropathy and states he has no inclination as to when this happe karlie. Denies any drainage or noticing anything on socks. CT upon admission showed a 9mm and 3mm foreign body. WBC 12.0, max temp 102.9. HGB A1C 10.3 on 10/31/18, XR was negative for any osseus abnormality. Reports edema and erythema to right lower extremity. Denies any calf pain, chest pain, or shortness of breath. Denies any nausea, vomiting, or diarrhea. Reports numbness and tingling. No other questions or concerns at this time. Past Med Surg Social Fam HX - Past Medical History Medical history: coronary artery disease, diabetes, GERD, hypertension, myocardial infarction Additional medical history: PE Psychiatric history: depression - Past Surgical History Surgical History: no surgical history Additional surgical history: stent placed 2019 - Social History Smoking Status: Former smoker Smokeless Tobacco Status: No Alcohol use: none Drug use: none - Family History Mother Living Status: Hx Family Cardiac Disorders: Yes (HTN) Hx Family Endocrine Disorder: Yes (DM) Medications and Allergies Tizanidine HCl [Zanaflex] 4 mg PO Q8HR PRN 05/15/17 [History] Albuterol Sulfate [Ventolin Hfa] 2 puff IH Q6H PRN 07/25/18 [History] DULoxetine [Cymbalta] 30 mg PO DAILY 07/25/18 [History] Gabapentin 800 mg PO TID 07/25/18 [History] Insulin ASPART [Novolog Flexpen] 20 unit SQ QIDAC 07/25/18 [History] Omeprazole [PriLOSEC] 40 mg PO HS 07/25/18 [History] Aspirin 81 mg PO DAILY tab.chew 07/27/18 [Rx] Atorvastatin Calcium 80 mg PO HS #30 tablet 07/27/18 [Rx] Nitroglycerin 0.4 mg SL Q5M PRN #30 tab.subl 07/27/18 [Rx] Clopidogrel [Plavix] 75 mg PO DAILY 08/27/18 [History] Warfarin [Coumadin] 6 mg PO SUTUWEFR 10/01/18 [History] Warfarin [Coumadin] 3 mg PO MOTHSA 10/02/18 [History] Lisinopril [Zestril] 10 mg PO DAILY 10/29/18 [History] Amitriptyline [Elavil] 50 mg PO HS 12/26/18 [History] Dulaglutide [Trulicity] 1.5 mg SQ FR 12/26/18 [History] Metoprolol [Lopressor] 12.5 mg PO BID 12/26/18 [History] Ranolazine [Ranexa] 500 mg PO BID 01/09/19 [History] Allergy/AdvReac Type Severity Reaction Status Date / Time No Known Allergies Allergy Verified 09/30/18 16:20 All Systems Reviewed: The remainder of the systems were reviewed and are negative - Constitutional Constitutional: fever(s), weakness - Cardiovascular Cardiovascular: pedal edema, no chest pain - Respiratory Respiratory: no dyspnea - Musculoskeletal Musculoskeletal: numbness, tingling Physical Exam - Constitutional Vitals: Temp Pulse Resp BP Pulse Ox 98.5 F 74 14 110/70 96 01/09/19 06:18 01/09/19 06:18 01/09/19 06:18 01/09/19 06:18 01/09/19 06:18 Exam: Constitiutional: Alert and oriented x 3. Well nourished. No acute distress noted Vascular: 1/4 DP/PT bilaterally, CFT <3 sec to all digits, warm to warm from tibia to toes bilaterally, no calf pain with squeeze, erythema and edema noted to right foot Neurologic: Absent sensation to touch, normal plantar response Dermatologic: Callus noted to right foot submetatarsal #3, puncture wound noted to right foot submetatarsal #2, pinpoint, minimal purulent drainage noted Musculoskeletal: 5/5 muscle strength and normal tone bilaterally. Results - Labs Result Diagrams: 01/09/19 04:35 01/09/19 04:35 Labs: Abnormal lab results WBC 12.0 K/mcL (4.3-11.1) H 01/09/19 04:35 RBC 3.72 M/mcL (4.19-5.50) L 01/09/19 04:35 Hgb 10.5 g/dL (12.9-16.9) L D 01/09/19 04:35 Hct 32.4 % (37.5-50.1) L 01/09/19 04:35 Neutrophils # 12.3 K/mcL (1.6-8.9) H 01/08/19 16:41 Monocytes # 1.5 K/mcL (0.0-1.3) H 01/09/19 04:35 PT 18.1 Seconds (9.4-12.1) H 01/09/19 04:35 Sodium 133 mEq/L (136-145) L 01/08/19 16:41 Est GFR (Non-Af Amer) 59 (> 60) L 01/09/19 04:35 Glucose 265 mg/dL (70-105) H 01/09/19 04:35 POC Glucose 219 mg/dL (70-99) H 01/09/19 05:36 Calcium 8.3 mg/dL (8.6-10.3) L 01/09/19 04:35 Phosphorus 2.3 mg/dL (2.7-4.5) L 01/08/19 16:41 Magnesium 1.4 mg/dL (1.6-2.6) L 01/08/19 16:41 AST 10 Units/L (13-39) L 01/08/19 16:41 Troponin I 0.13 ng/mL (< 0.04) H* 01/09/19 04:35 Globulin 3.7 g/dL (2.4-3.5) H 01/08/19 16:41 Albumin/Globulin Ratio 1.0 (1.1-2.2) L 01/08/19 16:41 Urine Glucose (UA) 500 mg/dL (Normal) H 01/08/19 17:16 H & H 01/08/19 01/09/19 Range/Units 16:41 04:35 Hgb 12.7 L 10.5 L D (12.9-16.9) g/dL Hct 38.5 32.4 L (37.5-50.1) % All other labs normal. - Diagnostic results Ankle/Foot x-ray: report reviewed Ankle/Foot CT: report reviewed Consult Discharge Plan - Plan Referrals: Michelle Barrios, ROBY [Primary Care Provider] -
[2019-01-09] MEDS: Ranolazine 500 MG TAB.ER.12H PO SCH ×2 (10:43→21:44)
[2019-01-09] MEDS: Insulin LISPRO 300 UNITS/3 ML VIAL SQ SCH ×4 (10:45→21:50)
[2019-01-09] MEDS: Gabapentin 400 MG CAPSULE PO SCH ×3 (11:01→21:44)
[2019-01-09] MEDS: Aspirin 81 MG TAB.CHEW PO SCH (11:01)
[2019-01-09] MEDS: Insulin DETEMIR 100 UNIT/ML X5UNITS SQ SCH (13:36)
[2019-01-09] MEDS ORDERED: *HR* OxyCODONE Immed Rel 5 MG TABLET PO PRN (14:03)
[2019-01-09] MEDS ORDERED: *HR* HYDROcodone/Acet 5/325 mg TABLET PO PRN (14:03)
[2019-01-09] MEDS ORDERED: Naloxone 0.4 MG/ML INJ IVP PRN (14:03)
--- NOTE | 2019-01-09 14:05 | Internal Med Progress Note ---
Hospitalist Progress Note - Encounter Date of Encounter: 01/09/19 Time of Encounter: 11:00 - Subjective Interval History: Patient seen at bedside. Mentions improvement since last night. Denies fever, chills, rigors at this point. Denies chest pain or shortness of breath. Denies orthopnea, dyspnea on exertion. Got the debridement by podiatry today. - Exam Vitals: Temp Pulse Resp BP Pulse Ox 98.0 F 79 16 137/81 96 01/09/19 12:01/09/19 12:01/09/19 12:01/09/19 12:01/09/19 12:31 Exam: General: Alert and oriented, no physical distress, able to follow commands. HEENT: No thyromegaly, no lymphadenopathy, no discharge. Eyes: No discharge. Normal conjuctiva, no icterus Respiratory: Normal vesicular breathing, no added sounds, breathing equal in both sides. CVS: Normal heart sounds, no murmurs, regular rhthm, no edema Extremities: No peripheral edema, peripheral pulses intact. Right foot with mild swelling, patient mentions that it is improved since yesterday. Warm but not tender to touch. Callus formation on the plantar surface around where the staple was found. Lymph nodes: No lymphadenopathy Gastrointestinal: Soft, nontender abdomen, normal abdominal sounds. No distention noted. Genitourinary: No paravertebral tenderness. Skin: No rash, ulcers or wound. Neurological: Alert and oriented. No focal deficits. Cranial nerves II-XII intact. - Assessment and Plan (1) Sepsis Current Visit: Yes Status: Acute Assessment and Plan: Presented with fever and leukocytosis, so seems to be infection of skin/soft tissue of the right foot cellulitis. Inciting factor seems to be a foreign body. CT scan of the foot was consistent with 9mm and 3 mm linear foreign bodies in the soft tissue plantar to the 2nd metatarsal with adjacent fat stranding compatible with cellulitis versus sterile edema. No drainable fluid collection. Podiatry on board. CRP and ESR found to be revisited. Patient got debridement of callus completed at bedside today. Wound cultures were obtained and sent to the lab Continue cefepime and vancomycin at this point. (2) LV (left ventricular) mural thrombus Current Visit: Yes Status: Acute Assessment and Plan: Continue the patient on Coumadin. As the patient INR is currently subtherapeutic, bridged with Lovenox. (3) NSTEMI (non-ST elevated myocardial infarction) Current Visit: Yes Status: Acute Assessment and Plan: Likely in context of sepsis. Type II HAs previous hx of CAD with recommnedations for the medical management Continue to trend the troponins. No new EKG changes. Patient denies any chest pain. (4) Callus of foot Current Visit: Yes Status: Acute Assessment and Plan: Podiatry on board (5) Cellulitis of right foot Current Visit: Yes Status: Acute Assessment and Plan: Plan mentioned above (6) FERMÍN (acute kidney injury) Current Visit: No Status: Acute Assessment and Plan: Likely due to sepsis. Creatinine of 1.28 currently. Continue to monitor at this point. (7) CAD (coronary artery disease) Current Visit: No Status: Chronic Assessment and Plan: Continue home medications. Troponin noted to be elevated. Likely type II. (8) Diabetes Current Visit: No Status: Chronic Assessment and Plan: Unsure about the home dose of insulin. Start the patient on insulin detemir 10 units with low-dose sliding scale. (9) HTN (hypertension) Current Visit: No Status: Chronic Assessment and Plan: Blood pressure noted to be normal. Continue home medications - Time Spent with Patient Total time spent is greater than 50% in coordination of care (as documented) at patient's floor/unit and/or counseling patient: Internal Medicine: Result - Labs CBC & Chem 7: 01/09/19 04:35 01/09/19 04:35 Labs: Short CBC 01/08/19 01/09/19 Range/Units 16:41 04:35 WBC 15.1 H 12.0 H (4.3-11.1) K/mcL Hgb 12.7 L 10.5 L D (12.9-16.9) g/dL Hct 38.5 32.4 L (37.5-50.1) % Plt Count 396 334 (140-400) K/mcL Neutrophils # 12.3 H 7.8 (1.6-8.9) K/mcL BMP 01/08/19 01/09/19 16:41 04:35 Sodium 133 L 137 Potassium 5.1 4.9 Chloride 99 105 Carbon Dioxide 26 23 BUN 16 18 Creatinine 1.07 1.28 Glucose 190 H 265 H Calcium 9.4 8.3 L Cardiac Enzymes 01/08/19 01/08/19 01/09/19 Range/Units 16:41 21:53 04:35 Troponin I 0.06 H* 0.07 H* 0.13 H* (< 0.04) ng/mL 01/09/19 Range/Units 10:43 Troponin I 0.17 H* (< 0.04) ng/mL Liver Function 01/08/19 Range/Units 16:41 Total Bilirubin 0.4 (0.3-1.0) mg/dL Direct Bilirubin 0.1 (0.0-0.2) mg/dL AST 10 L (13-39) Units/L ALT 7 (7-52) Units/L Alkaline Phosphatase 88 (34-104) Units/L Albumin 3.8 (3.5-5.7) g/dL Urine 01/08/19 Range/Units 17:16 Urine Color Yellow (Yellow) Urine Clarity Clear (Clear) Urine pH 5.5 (5.0-8.0) pH Units Ur Specific [place] 1.015 (1.010-1.025) Urine Protein Negative (Neg-Trace) mg/dL Urine Glucose (UA) 500 H (Normal) mg/dL - ABG Interpretation ABG results: PT/INR, D-dimer PT 18.1 Seconds (9.4-12.1) H 01/09/19 04:35 - Impressions Impressions Chest X-Ray 01/08/19 16:29 IMPRESSION: No acute process. D/ / Gaston Daniel MD / Gaston Daniel MD Interpreting Provider: Gaston Daniel MD Abdomen/Pelvis CT 01/08/19 16:30 IMPRESSION: Mild to moderate thickening of the wall of the urinary bladder. This is a new finding from 07/18/2015 differential diagnosis includes hypertrophy from outlet obstruction and inflammatory change of cystitis. Tumor not entirely excluded. Clinical correlation and follow-up recommended. Cortical scarring in the posterior left kidney is a new finding compared with 07/18/2015. Slight heterogeneous cortical enhancement of the kidneys for which pyelonephritis cannot be excluded. No other acute finding in the abdomen/pelvis. D/ / Jaquan Raza MD / Jaquan Raza MD Interpreting Provider: Jaquan Raza MD Foot X-Ray 01/08/19 19:02 IMPRESSION: Soft tissue swelling with no acute or focal bony abnormality seen. D/ / Jumana Quinn Cha, MD / Jumana Quinn Cha, MD Interpreting Provider: Jumana Quinn Cha, MD Foot CT 01/08/19 20:23 IMPRESSION: 1. 9 mm and 3 mm linear foreign bodies in the soft tissues plantar to the 2nd metatarsal with adjacent fat stranding compatible with cellulitis versus sterile edema. No drainable fluid collection. 2. No acute osseous abnormality. D/ / David Fritz MD / David Fritz MD Interpreting Provider: David Fritz MD Consult Discharge Plan - Plan Referrals: Michelle Barrios, ADMINISTRATIVE SERVICES SPECIALIST [Primary Care Provider] - (1) Sepsis Qualifiers: Sepsis type: sepsis due to unspecified organism (7) CAD (coronary artery disease) Qualifiers: Coronary Disease-Associated Artery/Lesion type: platinum artery [place] vs. transplanted heart: platinum heart Associated angina: with unstable angina Qualified Code(s): I25.110 - Atherosclerotic heart disease of [place] coronary artery with unstable angina pectoris (8) Diabetes Qualifiers: Diabetes mellitus type: type 2 Diabetes mellitus parts counterman insulin use: with parts counterman use Diabetes mellitus complication status: with hyperglycemia Qualified Code(s): E11.65 - Type 2 diabetes mellitus with hyperglycemia; Z79.4 - skilled nursing (current) use of insulin (9) HTN (hypertension) Qualifiers: Hypertension type: essential hypertension Qualified Code(s): I10 - Essential (primary) hypertension
[2019-01-09] MEDS ORDERED: Perflutren Lipid Microsphere 1.3 ML in 0.9 % Sodium Chloride 8.7 ML IVP ONE (14:22)
--- NOTE | 2019-01-09 14:35 | Electrocardiograph Report ---
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
--- NOTE | 2019-01-09 14:40 | Electrocardiograph Report ---
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
--- NOTE | 2019-01-09 15:35 | Event Note ---
Date of Encounter: 01/09/19 Time of Encounter: 15:33 Attempted bedside foreign body removal unsuccessfully. See procedure note. Discussed with Dr. Vargas. Plan for OR tomorrow evening for foreign body removal. NPO after breakfast. Continue ATB.
--- NOTE | 2019-01-09 15:39 | Procedure Note ---
Date of procedure: 01/09/19 Pre-op diagnosis: foreign body right foot Post-op diagnosis: same Procedure: Discussed risks vs. benefits of procedure. Informed consent obtained. Painted right foot with betadine x 3. Lidocaine 1 %, 2 cc inserted. Anesthesia achieved. Distal to right 2nd metatarsal stab incision made. Hemostat's inserted. Unable to retrieve foreign body. 2.0 prolene suture placed x 1. Cleansed again with betadine x 3. Covered with adaptic, 4x4 dry gauze, and kerlix. Secured with medipore tape Anesthesia: local Surgeon: Reyna Fairbanks Was there an certified physician's assistant present: No Estimated blood loss (cc): 1 Specimen: none Pathology: none sent Condition: stable Disposition: no change
[2019-01-09] MEDS ORDERED: *HR* Warfarin 3 MG TABLET PO ONE ×2 (18:00)
[2019-01-09] MEDS ORDERED: Warfarin perPT PO PRN (18:00)
[2019-01-09] MEDS: *HR* Enoxaparin 100 MG/ML SYRINGE SQ SCH (18:23)
[2019-01-10 04:22] LABS: Basophils # 0.1 K/mcL (0.0-0.2); Basophils % 0.6 %; Eosinophils # 0.2 K/mcL (0.0-0.6); Eosinophils % 2.2 %; Hematocrit 34.1 % (37.5-50.1); Hemoglobin 10.9 g/dL (12.9-16.9); Immature Granulocytes % 0.3 % (0-4); Lymphocytes # 2.6 K/mcL (0.6-4.6); Lymphocytes % 26.7 %; Mean Corpuscular Hemoglobin 28.1 pg (28.0-33.3); Mean Corpuscular Volume 87.9 fL (83.0-100.0); Mean Platelet Volume 10.8 fL (9.4-12.4); Monocytes % 9.7 %; Neutrophils # 5.9 K/mcL (1.6-8.9); Platelet Count 315 K/mcL (140-400); Red Blood Count 3.88 M/mcL (4.19-5.50); Red Cell Distribution Width 13.2 % (11.5-14.5); Segmented Neutrophils % 60.5 %; White Blood Count 9.8 K/mcL (4.3-11.1)
[2019-01-10 04:30] LABS: INR 1.6; Prothrombin Time 17.8 Seconds (9.4-12.1)
[2019-01-10 04:44] LABS: BUN/Creatinine Ratio 16 (6-26); Blood Urea Nitrogen 13 mg/dL (6-20); Calcium 8.9 mg/dL (8.6-10.3); Carbon Dioxide 25 mEq/L (23-29); Chloride 103 mEq/L (98-107); Glucose 147 mg/dL (70-105); Osmolality,Calculated 285 (280-300); Potassium 4.6 mEq/L (3.5-5.1); Sodium 136 mEq/L (136-145); eGFR For African Americans > 60 (> 60); eGFR For Non-African Americans > 60 (> 60)
[2019-01-10] MEDS: Cefepime HCl 2,000 MG in 0.9 % Sodium Chloride Mini Bag 100 ML IVPB SCH (05:24)
[2019-01-10] MEDS: *HR* Enoxaparin 100 MG/ML SYRINGE SQ SCH ×2 (05:24→17:42)
[2019-01-10] MEDS: Gabapentin 400 MG CAPSULE PO SCH ×3 (08:21→20:55)
[2019-01-10] MEDS: Ranolazine 500 MG TAB.ER.12H PO SCH ×2 (08:22→20:55)
[2019-01-10] MEDS: Insulin DETEMIR 100 UNIT/ML X5UNITS SQ SCH (08:22)
[2019-01-10] MEDS: Aspirin 81 MG TAB.CHEW PO SCH (08:22)
[2019-01-10] MEDS: Insulin LISPRO 300 UNITS/3 ML VIAL SQ SCH ×4 (08:23→20:57)
--- NOTE | 2019-01-10 13:06 | Internal Med Progress Note ---
Hospitalist Progress Note - Encounter Date of Encounter: 01/10/19 Time of Encounter: 09:45 - Subjective Interval History: Seen at bedside. No acute complaints today. No overnight events. Denies chest pain, shortness of breath. Denied fever, chills, rigors. Currently nothing by mouth. Scheduled for surgery. - Exam Vitals: Temp Pulse Resp BP Pulse Ox 98.2 F 77 17 134/86 95 01/10/19 10:49 01/10/19 10:49 01/10/19 10:49 01/10/19 10:49 01/10/19 10:49 Exam: General: Alert and oriented, no physical distress, able to follow commands. HEENT: No thyromegaly, no lymphadenopathy, no discharge. Eyes: No discharge. Normal conjuctiva, no icterus Respiratory: Normal vesicular breathing, no added sounds, breathing equal in both sides. CVS: Normal heart sounds, no murmurs, regular rhthm, no edema Extremities: No peripheral edema, peripheral pulses intact. Right foot with dressed today, not oended in context of pt comfort, Lymph nodes: No lymphadenopathy Gastrointestinal: Soft, nontender abdomen, normal abdominal sounds. No distention noted. Genitourinary: No paravertebral tenderness. Neurological: Alert and oriented. No focal deficits. Cranial nerves II-XII intact. - Assessment and Plan (1) Sepsis Current Visit: Yes Status: Acute Assessment and Plan: Presented with fever and leukocytosis, source seems to be infection of skin/soft tissue of the right foot cellulitis. Inciting factor seems to be a foreign body. CT scan of the foot was consistent with 9mm and 3 mm linear foreign bodies in the soft tissue plantar to the 2nd metatarsal with adjacent fat stranding compatible with cellulitis versus sterile edema. No drainable fluid collection. Podiatry on board. CRP and ESR found to be elevated Patient got debridement of callus completed at bedside today. Wound cultures were obtained and sent to the lab Is being taken to the OR for removal of foreign boday today Blood cultures pending Continue cefepime and vancomycin at this point. (2) LV (left ventricular) mural thrombus Current Visit: Yes Status: Acute Assessment and Plan: Hx of LV thrombus Echo done today showed resolutio. Continue the patient on Coumadin. As the patient INR is currently subtherapeutic, bridged with Lovenox. (3) NSTEMI (non-ST elevated myocardial infarction) Current Visit: Yes Status: Acute Assessment and Plan: Likely in context of sepsis. Type II Troponin peaked at 0.17 HAs previous hx of CAD with recommnedations for the medical management No new EKG changes. Patient denies any chest pain. No interventions palnned at this point as recently had all workup done and this episode seems to be 2/2 sepssi. (4) Callus of foot Current Visit: Yes Status: Acute Assessment and Plan: Podiatery on baord. Management plan discussed above (5) Cellulitis of right foot Current Visit: Yes Status: Acute Assessment and Plan: Plan mentioned above (6) FERMÍN (acute kidney injury) Current Visit: No Status: Acute Assessment and Plan: Likely due to sepsis. Creatinine of 0.8, improved from 1.28. No IV fluids Continue to monitor at this point. (7) CAD (coronary artery disease) Current Visit: No Status: Chronic Assessment and Plan: Continue home medications. Troponin noted to be elevated. Likely type II. (8) Diabetes Current Visit: No Status: Chronic Assessment and Plan: Unsure about the home dose of insulin. Start the patient on insulin detemir 10 units with low-dose sliding scale. BG levels today seem to be in reasonable limits (9) HTN (hypertension) Current Visit: No Status: Chronic Assessment and Plan: Blood pressure noted to be normal. Continue home medications - Time Spent with Patient Total time spent is greater than 50% in coordination of care (as documented) at patient's floor/unit and/or counseling patient: Internal Medicine: Result - Labs CBC & Chem 7: 01/10/19 03:52 01/10/19 03:52 Labs: Short CBC 01/10/19 Range/Units 03:52 WBC 9.8 (4.3-11.1) K/mcL Hgb 10.9 L (12.9-16.9) g/dL Hct 34.1 L (37.5-50.1) % Plt Count 315 (140-400) K/mcL Neutrophils # 5.9 (1.6-8.9) K/mcL BMP 01/10/19 03:52 Sodium 136 Potassium 4.6 Chloride 103 Carbon Dioxide 25 BUN 13 Creatinine 0.80 Glucose 147 H Calcium 8.9 Cardiac Enzymes 01/09/19 Range/Units 16:01 Troponin I 0.16 H* (< 0.04) ng/mL - ABG Interpretation ABG results: PT/INR, D-dimer PT 17.8 Seconds (9.4-12.1) H 01/10/19 03:52 - Impressions Impressions Echocardiogram Limited Views 01/09/19 06:05 Impressions: LVEF 50-55%. Moderate segmental left ventricular systolic dysfunction. There is no LV thrombus. Grossly normal right ventricular size and function. Left Ventricular Wall Motion: Rest Echo Findings The apical inferior, apical anterior, mid anterior, apical septal, apical lateral and mid anterior septal sanchez were hypokinetic. The apex wall was akinetic. All other wall segments showed normal motion. Findings: Study Quality * Technically adequate exam. ECG Findings * Sinus rhythm with BBB. Left Ventricle * LVEF 50-55%. * Normal LV chamber size, wall thickness. * Moderate segmental left ventricular systolic dysfunction. * There is no LV thrombus. * Definity echo contrast was used. * Atypical septal motion consistent with bundle branch block. Right Ventricle * RV not well visualized, grossly normal right ventricular size and function. Left Atrium * Normal left atrial size. Right Atrium * Right atrium is not well visualized. Consult Discharge Plan - Plan Referrals: Michelle Barrios, CLINICAL RESOURCE NURSE [Primary Care Provider] - (1) Sepsis Qualifiers: Sepsis type: sepsis due to unspecified organism (7) CAD (coronary artery disease) Qualifiers: Coronary Disease-Associated Artery/Lesion type: [place] artery [place] vs. transplanted heart: [place] heart Associated angina: with unstable angina Qualified Code(s): I25.110 - Atherosclerotic heart disease of [place] coronary artery with unstable angina pectoris (8) Diabetes Qualifiers: Diabetes mellitus type: type 2 Diabetes mellitus alf insulin use: with terminal clerk use Diabetes mellitus complication status: with hyperglycemia Qualified Code(s): E11.65 - Type 2 diabetes mellitus with hyperglycemia; Z79.4 - shelter (current) use of insulin (9) HTN (hypertension) Qualifiers: Hypertension type: essential hypertension Qualified Code(s): I10 - Essential (primary) hypertension
--- NOTE | 2019-01-10 17:54 | Anesthesia Evaluation PreOp ---
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: Other (Neuropathic LE) Other Medical History: Diabetes Type II Anesthesia History: No Prior Anesthetic Complications Alcohol Use: none Drug use: none Medications and Allergies Tizanidine HCl [Zanaflex] 4 mg PO Q8HR PRN 05/15/17 [History] Albuterol Sulfate [Ventolin Hfa] 2 puff IH Q6H PRN 07/25/18 [History] DULoxetine [Cymbalta] 30 mg PO DAILY 07/25/18 [History] Gabapentin 800 mg PO TID 07/25/18 [History] Insulin ASPART [Novolog Flexpen] 0 unit SQ QIDAC 07/25/18 [History] Omeprazole [PriLOSEC] 40 mg PO HS 07/25/18 [History] Aspirin 81 mg PO DAILY tab.chew 07/27/18 [Rx] Atorvastatin Calcium 80 mg PO HS #30 tablet 07/27/18 [Rx] Nitroglycerin 0.4 mg SL Q5M PRN #30 tab.subl 07/27/18 [Rx] Clopidogrel [Plavix] 75 mg PO DAILY 08/27/18 [History] Warfarin [Coumadin] 6 mg PO SUTUWEFRSA 10/01/18 [History] Warfarin [Coumadin] 3 mg PO MOTH 10/02/18 [History] Lisinopril [Zestril] 10 mg PO DAILY 10/29/18 [History] Amitriptyline [Elavil] 50 mg PO HS 12/26/18 [History] Dulaglutide [Trulicity] 1.5 mg SQ FR 12/26/18 [History] Metoprolol [Lopressor] 12.5 mg PO BID 12/26/18 [History] Cyanocobalamin/Folic AC/Vit B6 [Folbee Tablet] 1 tab PO DAILY 01/09/19 [History] Insulin Glargine,Hum.rec.anlog [Toujeo Solostar] 35 units SQ HS 01/09/19 [Histo ry] Naproxen 500 mg PO QPM 01/09/19 [History] Ranitidine HCl [Zantac] 300 mg PO DAILY 01/09/19 [History] Ranolazine [Ranexa] 500 mg PO BID 01/09/19 [History] Allergy/AdvReac Type Severity Reaction Status Date / Time No Known Allergies Allergy Verified 09/30/18 16:20 - Meds/Allergy Pre-op Review Medications Reviewed: Yes Allergies Reviewed: Yes Beta Blockers on Current Med List: Yes (on metoprolol) Anesthesia Results - Labs 01/10/19 03:52 01/10/19 03:52 Anesthesia Exam O2 Sat Weight 106.1 kg O2 Sat by Pulse Oximetry 94 O2 Sat by Pulse Oximetry 95 O2 Sat by Pulse Oximetry 94 O2 Sat by Pulse Oximetry 94 O2 Sat by Pulse Oximetry 90 O2 Sat by Pulse Oximetry 93 O2 Sat by Pulse Oximetry 94 Vital Signs Temp Pulse Resp BP Pulse Ox 102.9 F H 99 18 155/88 99 01/08/19 16:24 01/08/19 16:24 01/08/19 16:24 01/08/19 16:24 01/08/19 16:24 Height: 5'9 Weight: 233 lbs NPO (# of Hours): MN Pain Scale: 0 - HEENT Pupil (Motor): Pupils equal, EOMI Oral Opening: Greater than 3 - 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
[2019-01-10] MEDS ORDERED: *HR* Warfarin 3 MG TABLET PO ONE (18:00)
[2019-01-10] MEDS ORDERED: Famotidine 20 MG/2 ML VIAL ONE (18:00)
[2019-01-10] MEDS ORDERED: Metoclopramide 10 MG/2 ML VIAL ONE (18:00)
[2019-01-10] MEDS ORDERED: Calcium Gluconate 1,000 MG/10 ML VIAL ONE (18:03)
[2019-01-10] MEDS ORDERED: *HR* Midazolam HCl 2 MG/2 ML VIAL ONE ×2 (18:12→18:32)
[2019-01-10] MEDS ORDERED: *HR* FentaNYL (PF) 100 MCG/2 ML VIAL ONE (18:13)
--- NOTE | 2019-01-10 19:25 | Orthopedic Operative Note ---
Date of procedure: 01/10/19 Pre-op diagnosis: #1: Infection abscess right forefoot. #2: Foreign body right forefoot Post-op diagnosis: same Procedure: 01/10/19 19:23 #1: Incision and drainage of multiple planes right foot #2: Removal foreign body/fragment of glass right foot deep. #3: Inject PRP 01/10/19 19:23 Implants: None Complications: None Anesthesia: MAC, local Local Anesthetics: 0.25% Sensorcaine HCL SubQ (cc) (Plain no epinephrine) Surgeon: Dawson Vargas Was there an registered sales assistant present: No Estimated blood loss (cc): 5 Tourniquet Time (Minutes): 0 Specimen: Foreign body glass Condition: stable Disposition: floor Procedure in Detail: 01/10/19 19:25 Details in summary of procedure: Patient was brought to surgical suite. Sign in procedure performed. Patient transferred the surgical table and positioned properly safely securely. Right foot elevated on a foam block. No tourniquet was used. Anesthetic timeout was taken. Right ankle was prepped with alcohol 3 times. A posterior nerve block was carried out at the level of the medial ankle between the Achilles tendon and the medial malleolus ensuring that we aspirated prior to injection of the posterior tibial nerve. Profound nerve block achieved. The right foot was then prepped and draped in usual sterile manner. Surgical timeout was taken. There are 2 entrance wounds on the plantar aspect right forefoot 1 beneath the third metatarsal phalangeal joint and one between the second and first MTPJ just proximal to the joint itself. Patient stepped on a tack which was removed in the ED. Remaining foreign body was discovered on CT scan. Patient had obvious cellulitis of the dorsal aspect of his right foot global edema.. At that point incision was made over the entrance wound of the foreign body, Proximal in between the first second metatarsal , 4 cm in length. The wound was explored for foreign body. During irrigation the foreign body was extruded and found to be triangular piece of glass. This foreign body/piece of glass fragment was placed on the back table. Another incision was made overlying the puncture wound of the stable just lateral to the third MTPJ for approximately 4 cm as well. It was deepened through sharp dissection with a blunt-tipped iris scissor through the fascia down to the metatarsophalangeal joint. Seropurulent drainage was noted and cultured aerobic and anaerobic. It was expressed and irrigated thoroughly with saline. All nonviable infected tissue was then debrided by surgical excisional method using a pickup and scissor. The wound was explored medially and laterally proximally and distally as well for any loculated abscess. None found. The wounds were then again flushed with copious amounts sterile saline. Finding no debris wounds were then closed loosely with interrupted sutures of 3-0 Prolene. PRP was sprayed into the wound prior to closure and injected into the wound post closure. Dry sterile dressing was applied consisting sterile Adaptic 4 x 4's AVD pads and Kerlix 2. Estimated blood loss less than 5 mL. There is no active bleeding necessitated use of ligature Bovie prior to closure. Hemostasis was achieved. Capillary rebound time is less than 3 seconds after application of the dressing to all toes. Complications encountered none patient sent to holding room in good condition with vital signs stable. 01/11/19 14:30
--- NOTE | 2019-01-10 19:26 | Anesthesia Evaluation Post Op ---
Date of Encounter: 01/10/19 Time of Encounter: 19:25 - Vital Signs Vital Signs: 146/81, HR 78, SpO2 94% (RA), RR 14 - Lungs Lungs: Clear Ascult./Percussion - Airway Airway: Non-obstructed - Cardiovascular Regular Rate - Mental Status Mental Status: Alert & Oriented, Answers Appropriately - Pain Pain Scale: 0 Pain Scale used: Numeric (1 - 10) - Nausea Vomiting Nausea Vomiting: Not Present - Hydration Hydration: NPO, Has not voided - Discharge PostOp Status: Transfer Patient to floor
[2019-01-10] MEDS ORDERED: Warfarin perPT PO PRN (19:32)
[2019-01-10] MEDS ORDERED: tiZANidine 4 MG TABLET PO PRN (19:32)
[2019-01-10] MEDS ORDERED: *HR* OxyCODONE Immed Rel 5 MG TABLET PO PRN (19:32)
[2019-01-10] MEDS ORDERED: Naloxone 0.4 MG/ML INJ IVP PRN (19:32)
[2019-01-10] MEDS ORDERED: Acetaminophen 325 MG TABLET PO PRN (19:32)
[2019-01-10] MEDS ORDERED: Dextrose Gel 15 GM/37.5 ML TUBE PO PRN ×2 (19:32)
[2019-01-10] MEDS ORDERED: *HR* Dextrose 50 % in Water (Syg) 50 ML SYRINGE IVP PRN (19:32)
[2019-01-10] MEDS ORDERED: Nitroglycerin 0.4 MG TAB.SUBL SL PRN (19:32)
[2019-01-11] MEDS: Cefepime HCl 2,000 MG in 0.9 % Sodium Chloride Mini Bag 100 ML IVPB SCH (01:13)
[2019-01-11] MEDS ORDERED: Cefepime HCl 2,000 MG in 0.9 % Sodium Chloride Mini Bag 100 ML IVPB SCH (06:00)
[2019-01-11] MEDS: *HR* Enoxaparin 100 MG/ML SYRINGE SQ SCH ×2 (06:05→18:45)
[2019-01-11 07:37] LABS: Basophils # 0.1 K/mcL (0.0-0.2); Basophils % 0.6 %; Eosinophils # 0.2 K/mcL (0.0-0.6); Eosinophils % 2.1 %; Hematocrit 33.9 % (37.5-50.1); Immature Granulocytes % 0.3 % (0-4); Lymphocytes # 1.3 K/mcL (0.6-4.6); Lymphocytes % 13.7 %; Mean Corpuscular HGB Conc 32.4 g/dL (31.6-35.5); Mean Corpuscular Volume 86.3 fL (83.0-100.0); Mean Platelet Volume 10.8 fL (9.4-12.4); Monocytes % 10.1 %; Platelet Count 345 K/mcL (140-400); Red Blood Count 3.93 M/mcL (4.19-5.50); Red Cell Distribution Width 12.9 % (11.5-14.5); Segmented Neutrophils % 73.2 %; White Blood Count 9.5 K/mcL (4.3-11.1)
[2019-01-11 07:45] LABS: INR 1.6; Prothrombin Time 18.3 Seconds (9.4-12.1)
[2019-01-11 07:54] LABS: BUN/Creatinine Ratio 13 (6-26); Blood Urea Nitrogen 11 mg/dL (6-20); Calcium 8.9 mg/dL (8.6-10.3); Carbon Dioxide 24 mEq/L (23-29); Chloride 100 mEq/L (98-107); Glucose 190 mg/dL (70-105); Osmolality,Calculated 284 (280-300); Potassium 4.6 mEq/L (3.5-5.1); Sodium 135 mEq/L (136-145); eGFR For African Americans > 60 (> 60); eGFR For Non-African Americans > 60 (> 60)
[2019-01-11] MEDS: Gabapentin 400 MG CAPSULE PO SCH ×3 (09:02→21:09)
[2019-01-11] MEDS: Aspirin 81 MG TAB.CHEW PO SCH (09:03)
[2019-01-11] MEDS: Ranolazine 500 MG TAB.ER.12H PO SCH ×2 (09:03→21:10)
[2019-01-11] MEDS: Insulin LISPRO 300 UNITS/3 ML VIAL SQ SCH ×4 (09:04→21:18)
[2019-01-11] MEDS: Insulin DETEMIR 100 UNIT/ML X5UNITS SQ SCH (10:50)
--- NOTE | 2019-01-11 12:54 | Internal Med Progress Note ---
Hospitalist Progress Note - Encounter Date of Encounter: 01/11/19 Time of Encounter: 09:00 - Subjective Interval History: Seen at bedside. Patient got the surgery yesterday with the removal of the foreign bodies. Currently his pain is well controlled. Denies fever, chills, rigors. Denies chest pain or shortness of breath. Sitting comfortably on the side of the bed. No other overnight events. - Exam Vitals: Temp Pulse Resp BP Pulse Ox 98.5 F 82 15 144/81 96 01/11/19 12:46 01/11/19 12:46 01/11/19 12:46 01/11/19 12:46 01/11/19 12:46 Exam: General: Alert and oriented, no physical distress, able to follow commands. Respiratory: Normal vesicular breathing, no added sounds, breathing equal in both sides. CVS: Normal heart sounds, no murmurs, regular rhthm, no edema Extremities: No peripheral edema, peripheral pulses intact. Right foot with dressed today, not opened in context of pt comfort, Lymph nodes: No lymphadenopathy Gastrointestinal: Soft, nontender abdomen, normal abdominal sounds. No distention noted. Genitourinary: No paravertebral tenderness. Neurological: Alert and oriented. No focal deficits. Cranial nerves II-XII intact. - Assessment and Plan (1) Sepsis Current Visit: Yes Status: Acute Assessment and Plan: Presented with fever and leukocytosis, source seems to be infection of skin/soft tissue of the right foot cellulitis. Inciting factor seems to be a foreign body. CT scan of the foot was consistent with 9mm and 3 mm linear foreign bodies in the soft tissue plantar to the 2nd metatarsal with adjacent fat stranding compatible with cellulitis versus sterile edema. Podiatry on board. CRP and ESR found to be elevated Patient was taken for the surgery yesterday with the incision and drainage of the abscess, removal of the foreign body/fragment of the glass. Blood cultures have been negative. Culture from the wound are pending. Discuss with podiatry today regarding the patient's further management. Discontinue IV antibiotics. Start the patient on oral doxycycline. (2) LV (left ventricular) mural thrombus Current Visit: Yes Status: Acute Assessment and Plan: Hx of LV thrombus Echo done during this visit showed resolution. Continue the patient on Coumadin. As the patient INR is currently subtherapeutic, bridged with Lovenox. (3) NSTEMI (non-ST elevated myocardial infarction) Current Visit: Yes Status: Acute Assessment and Plan: Likely in context of sepsis. Type II Troponin peaked at 0.17 HAs previous hx of CAD with recommnedations for the medical management No new EKG changes. Patient denies any chest pain. No interventions palnned at this point as recently had all workup done and this episode seems to be 2/2 sepsis. (4) Cellulitis of right foot Current Visit: Yes Status: Acute (5) FERMÍN (acute kidney injury) Current Visit: No Status: Acute Assessment and Plan: Likely due to sepsis. Creatinine of 0.8, improved from 1.28. No IV fluids Continue to monitor at this point. (6) CAD (coronary artery disease) Current Visit: No Status: Chronic Assessment and Plan: Continue home medications. Troponin noted to be elevated. Likely type II. (7) Diabetes Current Visit: No Status: Chronic Assessment and Plan: Continue the patient on insulin detemir 10 units with low-dose sliding scale. BG levels today seem to be in reasonable limits (8) HTN (hypertension) Current Visit: No Status: Chronic Assessment and Plan: Blood pressure noted to be normal. Continue home medications - Time Spent with Patient Total time spent is greater than 50% in coordination of care (as documented) at patient's floor/unit and/or counseling patient: Internal Medicine: Result - Labs CBC & Chem 7: 01/11/19 06:49 01/11/19 06:49 Labs: Short CBC 01/11/19 Range/Units 06:49 WBC 9.5 (4.3-11.1) K/mcL Hgb 11.0 L (12.9-16.9) g/dL Hct 33.9 L (37.5-50.1) % Plt Count 345 (140-400) K/mcL Neutrophils # 7.0 (1.6-8.9) K/mcL BMP 01/11/19 06:49 Sodium 135 L Potassium 4.6 Chloride 100 Carbon Dioxide 24 BUN 11 Creatinine 0.87 Glucose 190 H Calcium 8.9 - ABG Interpretation ABG results: PT/INR, D-dimer PT 18.3 Seconds (9.4-12.1) H 01/11/19 06:49 Consult Discharge Plan - Plan Referrals: Michelle Barrios, AUTO STRIPER [Primary Care Provider] - (1) Sepsis Qualifiers: Sepsis type: sepsis due to unspecified organism (6) CAD (coronary artery disease) Qualifiers: Coronary Disease-Associated Artery/Lesion type: [place] artery [place] vs. transplanted heart: [place] heart Associated angina: with unstable angina Qualified Code(s): I25.110 - Atherosclerotic heart disease of [place] coronary artery with unstable angina pectoris (7) Diabetes Qualifiers: Diabetes mellitus type: type 2 Diabetes mellitus [facility] insulin use: with [facility] use Diabetes mellitus complication status: with hyperglycemia Qualified Code(s): E11.65 - Type 2 diabetes mellitus with hyperglycemia; Z79.4 - [facility] (current) use of insulin (8) HTN (hypertension) Qualifiers: Hypertension type: essential hypertension Qualified Code(s): I10 - Essential (primary) hypertension
[2019-01-11] MEDS ORDERED: *HR* Warfarin 3 MG TABLET PO ONE (18:00)
[2019-01-11] MEDS: Doxycycline 100 MG CAPSULE PO SCH (21:10)
[2019-01-11] MEDS: *HR* HYDROcodone/Acet 5/325 mg TABLET PO PRN (21:15)
[2019-01-12] MEDS: *HR* Enoxaparin 100 MG/ML SYRINGE SQ SCH (06:16)
[2019-01-12 08:38] VITALS: BP 127/80
--- NOTE | 2019-01-12 08:38 | Discharge Summary ---
Orders not resulted at time of discharge: Pending orders 01/08/19 16:41 Culture,Blood [BC] Stat 01/09/19 11:10 Culture,Anaerobic [RM] Routine 01/10/19 19:11 Culture,Anaerobic [RM] Routine Culture,Wound [RM] Routine Date of Encounter: 01/12/19 Time of Encounter: 08:35 - Discharge Diagnosis (1) Sepsis Priority: Primary Status: Acute Qualifiers: Sepsis type: sepsis due to unspecified organism Sepsis acute organ dysfunction status: unspecified Qualified Code(s): A41.9 - Sepsis, unspecified organism (2) Cellulitis of right foot Priority: Secondary Status: Acute (3) FERMÍN (acute kidney injury) Priority: Secondary Status: Acute (4) Diabetes Priority: Secondary Status: Chronic Qualifiers: Diabetes mellitus type: type 2 Diabetes mellitus nursing home insulin use: with nursing home use Diabetes mellitus complication status: with hyperglycemia Qualified Code(s): E11.65 - Type 2 diabetes mellitus with hyperglycemia; 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 transplanted heart: [place] heart Associated angina: with unstable angina Qualified Code(s): I25.110 - Atherosclerotic heart disease of [place] coronary artery with unstable angina pectoris (7) LV (left ventricular) mural thrombus Priority: Secondary Status: Acute (8) NSTEMI (non-ST elevated myocardial infarction) Priority: Secondary Status: Acute Hospital course: Mr. Gaspar is a 48 year old male with history of IDDM, CAD, and medical noncompliance presented with sepsis and found to have right lower extremity cellulitis with concern for foreign body. A staple was removed in the emergency department and glass fragments were removed by podiatry in the operating room. Patient is unsure how these foreign bodies got into his lower extremity. Cellulitis improved with antibiotics. Patient was discharged with doxycycline and podiatry follow-up. Dressing changes will occur in podiatry clinic. - Time Spent with Patient Total time spent providing and/or coordinating discharge services: 65 minutes Time spent: Greater than 30 minutes - Discharge Medications Prescriptions: New Doxycycline 100 mg PO BID 10 Days #20 capsule Continued Gabapentin 800 mg PO TID Insulin ASPART [Novolog Flexpen] 0 unit SQ QIDAC Omeprazole [PriLOSEC] 40 mg PO HS Albuterol Sulfate [Ventolin Hfa] 2 puff IH Q6H PRN PRN Reason: Shortness Of Breath DULoxetine [Cymbalta] 30 mg PO DAILY Nitroglycerin 0.4 mg SL Q5M PRN #30 tab.subl PRN Reason: Chest Pain Atorvastatin Calcium 80 mg PO HS #30 tablet Aspirin 81 mg PO DAILY tab.chew Clopidogrel [Plavix] 75 mg PO DAILY Warfarin [Coumadin] 6 mg PO SUTUWEFRSA Warfarin [Coumadin] 3 mg PO MOTH Lisinopril [Zestril] 10 mg PO DAILY Amitriptyline [Elavil] 50 mg PO HS Dulaglutide [Trulicity] 1.5 mg SQ FR Metoprolol [Lopressor] 12.5 mg PO BID Ranolazine [Ranexa] 500 mg PO BID Ranitidine HCl [Zantac] 300 mg PO DAILY Cyanocobalamin/Folic AC/Vit B6 [Folbee Tablet] 1 tab PO DAILY Naproxen 500 mg PO QPM Insulin Glargine,Hum.rec.anlog [Toujeo Solostar] 35 units SQ HS Tizanidine HCl [Zanaflex] 4 mg PO Q8HR PRN PRN Reason: Muscle Spasm Home Medications: Tizanidine HCl [Zanaflex] 4 mg PO Q8HR PRN 05/15/17 [History] Albuterol Sulfate [Ventolin Hfa] 2 puff IH Q6H PRN 07/25/18 [History] DULoxetine [Cymbalta] 30 mg PO DAILY 07/25/18 [History] Gabapentin 800 mg PO TID 07/25/18 [History] Insulin ASPART [Novolog Flexpen] 0 unit SQ QIDAC 07/25/18 [History] Omeprazole [PriLOSEC] 40 mg PO HS 07/25/18 [History] Aspirin 81 mg PO DAILY tab.chew 07/27/18 [Rx] Atorvastatin Calcium 80 mg PO HS #30 tablet 07/27/18 [Rx] Nitroglycerin 0.4 mg SL Q5M PRN #30 tab.subl 07/27/18 [Rx] Clopidogrel [Plavix] 75 mg PO DAILY 08/27/18 [History] Warfarin [Coumadin] 6 mg PO SUTUWEFRSA 10/01/18 [History] Warfarin [Coumadin] 3 mg PO MOTH 10/02/18 [History] Lisinopril [Zestril] 10 mg PO DAILY 10/29/18 [History] Amitriptyline [Elavil] 50 mg PO HS 12/26/18 [History] Dulaglutide [Trulicity] 1.5 mg SQ FR 12/26/18 [History] Metoprolol [Lopressor] 12.5 mg PO BID 12/26/18 [History] Cyanocobalamin/Folic AC/Vit B6 [Folbee Tablet] 1 tab PO DAILY 01/09/19 [History] Insulin Glargine,Hum.rec.anlog [Toujeo Solostar] 35 units SQ HS 01/09/19 [History] Naproxen 500 mg PO QPM 01/09/19 [History] Ranitidine HCl [Zantac] 300 mg PO DAILY 01/09/19 [History] Ranolazine [Ranexa] 500 mg PO BID 01/09/19 [History] Doxycycline 100 mg PO BID 10 Days #20 capsule 01/12/19 [Rx] Allergies/Adverse Reactions: Allergy/AdvReac Type Severity Reaction Status Date / Time No Known Allergies Allergy Verified 09/30/18 16:20 Date of admission: 01/10/19 14:29 Primary care physician: Michelle Barrios CNP Consults: 01/08/19 22:46 Consult to Podiatry [CONS] Routine Consulting Provider: Podiatry [facility] Reason for Consult: Diabetic patient with neuropathy admitted with sepsis, found to have a staple on examination of his foot which was removed. Has cellulitic right foot and CT scan confirms presence of indwelling small foreign bodies Call Completed: No - Constitutional Vitals: Temp Pulse Resp BP Pulse Ox 97.6 F 68 15 118/72 95 01/12/19 03:03 01/12/19 03:03 01/12/19 03:03 01/12/19 03:03 01/12/19 03:03 Exam: General: Ill-appearing and in no acute distress HEENT: No erythema of posterior pharynx. No exudates. Lymphatics: No mandibular or cervical lymphadenopathy Cardiovascular: RRR. No murmurs. No chest wall tenderness. Lungs: Clear to auscelltation bilaterally. Regular chest rise. Abdomen: Non-tender. No rebound or gaurding. Nl bowel sounds. Extremities: RLE with surgical wound dressing in place c/d/i Skin: No rahses, abrasions, or contusions except for surgical wound described above. Nl cap refill. Psych: Nl attention. 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 5/5 strength. Sensation to light touch and pinprick intact. - Patient Status Disposition: Home, Self-Care Condition: Good Functional capacity at discharge: independent ambulation Overall status at discharge: patient is progressing back to baseline - Discharge Instructions Follow Up With: Michelle Barrios TELEPHONE SOLICITOR SUPERVISOR [Primary Care Provider] - - Diet and Activity Activity: increase activity as tolerated Diet: diabetic diet
[2019-01-12] MEDS ORDERED: Vitamin B Complex/Vit C/Vit E 1 EACH TABLET PO SCH (09:00)
[2019-01-12] MEDS: Insulin LISPRO 300 UNITS/3 ML VIAL SQ SCH (09:27)
[2019-01-12] MEDS: Gabapentin 400 MG CAPSULE PO SCH (09:28)
[2019-01-12] MEDS: Ranolazine 500 MG TAB.ER.12H PO SCH (09:28)
[2019-01-12] MEDS: Aspirin 81 MG TAB.CHEW PO SCH (09:28)
[2019-01-12] MEDS: Doxycycline 100 MG CAPSULE PO SCH (09:28)
[2019-01-12] MEDS: Insulin DETEMIR 100 UNIT/ML X5UNITS SQ SCH (09:29)
[2019-01-12 09:38] LABS: Basophils # 0.1 K/mcL (0.0-0.2); Basophils % 0.8 %; Eosinophils # 0.3 K/mcL (0.0-0.6); Eosinophils % 4.8 %; Hematocrit 35.3 % (37.5-50.1); Hemoglobin 11.4 g/dL (12.9-16.9); Immature Granulocytes % 0.3 % (0-4); Lymphocytes # 2.3 K/mcL (0.6-4.6); Lymphocytes % 33.8 %; Mean Corpuscular HGB Conc 32.3 g/dL (31.6-35.5); Mean Corpuscular Hemoglobin 28.7 pg (28.0-33.3); Mean Corpuscular Volume 88.9 fL (83.0-100.0); Mean Platelet Volume 10.3 fL (9.4-12.4); Monocytes # 0.9 K/mcL (0.0-1.3); Monocytes % 13.4 %; Neutrophils # 3.1 K/mcL (1.6-8.9); Platelet Count 345 K/mcL (140-400); Red Blood Count 3.97 M/mcL (4.19-5.50); Red Cell Distribution Width 12.8 % (11.5-14.5); Segmented Neutrophils % 46.9 %; White Blood Count 6.7 K/mcL (4.3-11.1)
[2019-01-12 09:46] LABS: INR 1.4; Prothrombin Time 15.6 Seconds (9.4-12.1)
[2019-01-12 09:49] LABS: BUN/Creatinine Ratio 16 (6-26); Blood Urea Nitrogen 14 mg/dL (6-20); Calcium 9.4 mg/dL (8.6-10.3); Carbon Dioxide 29 mEq/L (23-29); Chloride 99 mEq/L (98-107); Glucose 202 mg/dL (70-105); Osmolality,Calculated 290 (280-300); Potassium 4.8 mEq/L (3.5-5.1); Sodium 137 mEq/L (136-145); eGFR For African Americans > 60 (> 60); eGFR For Non-African Americans > 60 (> 60)
[2019-01-12] MEDS: *HR* HYDROcodone/Acet 5/325 mg TABLET PO PRN (10:18)
[2019-01-12] MEDS ORDERED: Aminoglycoside Consult 1 EACH MC ONE (11:57)
== END 2019-01-12 11:58 | disposition home or self-care (01) | DRG 710 ==
LOC: 3ANU 16:18 → EMEROOARM 16:18 → SUATTDRO 19:53 → 3ANU 20:35
PROVIDERS: ADMIT Internal Medicine; ATTEND Internal Medicine

== ENCOUNTER 2019-02-05 15:26 | Inpatient (IN) ==
[2019-02-05] MEDS ORDERED: Isovue-370 500 ML BOTTLE IVP ONE (16:03)
[2019-02-05 16:48] LABS: Basophils # 0.1 K/mcL (0.0-0.2); Basophils % 0.4 %; Eosinophils # 0.2 K/mcL (0.0-0.6); Eosinophils % 1.4 %; Hematocrit 42.1 % (37.5-50.1); Hemoglobin 13.8 g/dL (12.9-16.9); Immature Granulocytes % 0.4 % (0-4); Lymphocytes # 1.9 K/mcL (0.6-4.6); Lymphocytes % 15.6 %; Mean Corpuscular HGB Conc 32.8 g/dL (31.6-35.5); Mean Corpuscular Volume 85.4 fL (83.0-100.0); Mean Platelet Volume 10.5 fL (9.4-12.4); Monocytes # 1.2 K/mcL (0.0-1.3); Monocytes % 9.5 %; Neutrophils # 8.8 K/mcL (1.6-8.9); Platelet Count 416 K/mcL (140-400); Red Blood Count 4.93 M/mcL (4.19-5.50); Red Cell Distribution Width 12.5 % (11.5-14.5); Segmented Neutrophils % 72.7 %; White Blood Count 12.2 K/mcL (4.3-11.1)
[2019-02-05 17:06] LABS: BUN/Creatinine Ratio 14 (6-26); Blood Urea Nitrogen 18 mg/dL (6-20); Carbon Dioxide 29 mEq/L (23-29); Chloride 95 mEq/L (98-107); Glucose 269 mg/dL (70-105); Osmolality,Calculated 289 (280-300); Potassium 4.6 mEq/L (3.5-5.1); Sodium 134 mEq/L (136-145); eGFR For African Americans > 60 (> 60); eGFR For Non-African Americans > 60 (> 60)
[2019-02-05] MEDS ORDERED: Piperacillin/Tazobactam 3.375 GM in 0.9 % Sodium Chloride Mini Bag 100 ML IVPB ONE (19:41)
[2019-02-05] MEDS ORDERED: *HR* FentaNYL (PF) 100 MCG/2 ML VIAL IVP ONE (19:49)
[2019-02-05] MEDS ORDERED: *HR* Dextrose 50 % in Water (Syg) 50 ML SYRINGE IVP PRN (21:08)
[2019-02-05] MEDS ORDERED: Naloxone 0.4 MG/ML INJ IVP PRN (21:08)
[2019-02-05] MEDS ORDERED: Acetaminophen 325 MG TABLET PO PRN (21:08)
[2019-02-05] MEDS ORDERED: Dextrose Gel 15 GM/37.5 ML TUBE PO PRN ×2 (21:08)
[2019-02-05] MEDS: 0.9 % Sodium Chloride 1,000 ML IVC SCH (22:15)
[2019-02-05] MEDS: Insulin LISPRO 300 UNITS/3 ML VIAL SQ SCH (22:19)
[2019-02-05] MEDS: Ketorolac 30 MG/ML VIAL IVP PRN (23:34)
[2019-02-05] MEDS ORDERED: Nitroglycerin 0.4 MG TAB.SUBL SL PRN (23:56)
[2019-02-06] MEDS ORDERED: tiZANidine 4 MG TABLET PO PRN (00:29)
[2019-02-06] MEDS: Piperacillin/Tazobactam 3.375 GM in 0.9 % Sodium Chloride Mini Bag 100 ML IVPB SCH ×3 (05:13→22:33)
[2019-02-06] MEDS: 0.9 % Sodium Chloride 1,000 ML IVC SCH (05:14)
[2019-02-06] MEDS: traMADol 50 MG TABLET PO PRN (05:17)
[2019-02-06 05:42] LABS: Prothrombin Time 45.5 Seconds (9.4-12.1)
[2019-02-06] MEDS: Gabapentin 400 MG CAPSULE PO SCH ×3 (08:08→20:30)
[2019-02-06] MEDS: Insulin LISPRO 300 UNITS/3 ML VIAL SQ SCH ×4 (08:44→20:33)
[2019-02-06] MEDS ORDERED: *HR* HYDROcodone/Acet 7.5/325 mg TABLET PO PRN (10:32)
[2019-02-06] MEDS: Ketorolac 30 MG/ML VIAL IVP PRN (10:34)
[2019-02-06 13:49] LABS: BUN/Creatinine Ratio 14 (6-26); Blood Urea Nitrogen 17 mg/dL (6-20); Calcium 9.1 mg/dL (8.6-10.3); Carbon Dioxide 26 mEq/L (23-29); Chloride 103 mEq/L (98-107); Glucose 169 mg/dL (70-105); Osmolality,Calculated 285 (280-300); Potassium 4.6 mEq/L (3.5-5.1); Sodium 135 mEq/L (136-145); eGFR For African Americans > 60 (> 60); eGFR For Non-African Americans > 60 (> 60)
[2019-02-06] MEDS: *HR* HYDROcodone/Acet 7.5/325 mg TABLET PO PRN ×2 (15:56→22:29)
[2019-02-06] MEDS ORDERED: Warfarin perPT PO PRN (18:00)
[2019-02-07 05:01] LABS: Basophils # 0.1 K/mcL (0.0-0.2); Basophils % 0.7 %; Eosinophils # 0.4 K/mcL (0.0-0.6); Hematocrit 31.6 % (37.5-50.1); Immature Granulocytes % 0.3 % (0-4); Lymphocytes # 2.3 K/mcL (0.6-4.6); Lymphocytes % 26.1 %; Mean Corpuscular HGB Conc 32.3 g/dL (31.6-35.5); Mean Corpuscular Hemoglobin 28.3 pg (28.0-33.3); Mean Corpuscular Volume 87.5 fL (83.0-100.0); Mean Platelet Volume 10.5 fL (9.4-12.4); Monocytes # 0.9 K/mcL (0.0-1.3); Monocytes % 10.5 %; Neutrophils # 5.1 K/mcL (1.6-8.9); Platelet Count 295 K/mcL (140-400); Red Blood Count 3.61 M/mcL (4.19-5.50); Red Cell Distribution Width 12.5 % (11.5-14.5); Segmented Neutrophils % 58.4 %; White Blood Count 8.8 K/mcL (4.3-11.1)
[2019-02-07 05:05] LABS: Hemoglobin 10.2 g/dL (12.9-16.9)
[2019-02-07 05:07] LABS: INR 2.9; Prothrombin Time 33.1 Seconds (9.4-12.1)
[2019-02-07] MEDS: Piperacillin/Tazobactam 3.375 GM in 0.9 % Sodium Chloride Mini Bag 100 ML IVPB SCH ×3 (05:11→21:46)
[2019-02-07 05:16] LABS: BUN/Creatinine Ratio 16 (6-26); Blood Urea Nitrogen 18 mg/dL (6-20); Calcium 8.8 mg/dL (8.6-10.3); Carbon Dioxide 24 mEq/L (23-29); Chloride 105 mEq/L (98-107); Glucose 215 mg/dL (70-105); Osmolality,Calculated 286 (280-300); Potassium 4.4 mEq/L (3.5-5.1); Sodium 134 mEq/L (136-145); eGFR For African Americans > 60 (> 60); eGFR For Non-African Americans > 60 (> 60)
[2019-02-07] MEDS: Gabapentin 400 MG CAPSULE PO SCH ×3 (07:59→21:45)
[2019-02-07] MEDS: Insulin LISPRO 300 UNITS/3 ML VIAL SQ SCH ×4 (08:00→21:48)
[2019-02-07] MEDS: *HR* HYDROcodone/Acet 7.5/325 mg TABLET PO PRN ×2 (08:02→16:26)
[2019-02-07] MEDS ORDERED: *HR* Phytonadione 5 MG TABLET PO ONE ×2 (10:13→16:00)
[2019-02-07] MEDS ORDERED: Insulin DETEMIR 100 UNIT/ML X5UNITS SQ ONE (12:32)
[2019-02-07 15:37] LABS: INR 2.8; Prothrombin Time 32.3 Seconds (9.4-12.1)
[2019-02-07] MEDS ORDERED: *HR* Warfarin 3 MG TABLET PO ONE (18:00)
[2019-02-07] MEDS: traMADol 50 MG TABLET PO PRN (21:44)
[2019-02-07] MEDS: Insulin DETEMIR 100 UNIT/ML X5UNITS SQ SCH (21:48)
[2019-02-08] MEDS: *HR* HYDROcodone/Acet 7.5/325 mg TABLET PO PRN ×3 (03:29→22:40)
[2019-02-08] MEDS: Piperacillin/Tazobactam 3.375 GM in 0.9 % Sodium Chloride Mini Bag 100 ML IVPB SCH ×3 (05:42→21:20)
[2019-02-08] MEDS: Insulin LISPRO 300 UNITS/3 ML VIAL SQ SCH ×4 (09:03→21:01)
[2019-02-08] MEDS: Gabapentin 400 MG CAPSULE PO SCH ×3 (09:52→21:21)
[2019-02-08 10:04] LABS: Basophils % 0.4 %; Eosinophils # 0.4 K/mcL (0.0-0.6); Eosinophils % 3.9 %; Hematocrit 36.2 % (37.5-50.1); Hemoglobin 11.4 g/dL (12.9-16.9); Immature Granulocytes % 0.2 % (0-4); Lymphocytes # 2.1 K/mcL (0.6-4.6); Lymphocytes % 23.6 %; Mean Corpuscular HGB Conc 31.5 g/dL (31.6-35.5); Mean Corpuscular Volume 88.9 fL (83.0-100.0); Mean Platelet Volume 10.1 fL (9.4-12.4); Monocytes # 0.6 K/mcL (0.0-1.3); Monocytes % 7.1 %; Neutrophils # 5.8 K/mcL (1.6-8.9); Platelet Count 374 K/mcL (140-400); Red Blood Count 4.07 M/mcL (4.19-5.50); Red Cell Distribution Width 12.4 % (11.5-14.5); Segmented Neutrophils % 64.8 %; White Blood Count 8.9 K/mcL (4.3-11.1)
[2019-02-08 10:11] LABS: INR 1.7; Prothrombin Time 19.7 Seconds (9.4-12.1)
[2019-02-08 10:24] LABS: BUN/Creatinine Ratio 12 (6-26); Blood Urea Nitrogen 13 mg/dL (6-20); Calcium 9.4 mg/dL (8.6-10.3); Carbon Dioxide 29 mEq/L (23-29); Chloride 104 mEq/L (98-107); Glucose 85 mg/dL (70-105); Osmolality,Calculated 285 (280-300); Potassium 4.1 mEq/L (3.5-5.1); Sodium 138 mEq/L (136-145); eGFR For African Americans > 60 (> 60); eGFR For Non-African Americans > 60 (> 60)
[2019-02-08] MEDS: Insulin DETEMIR 100 UNIT/ML X5UNITS SQ SCH (21:22)
[2019-02-09] MEDS: Piperacillin/Tazobactam 3.375 GM in 0.9 % Sodium Chloride Mini Bag 100 ML IVPB SCH ×3 (05:02→23:05)
[2019-02-09 08:08] LABS: Basophils # 0.1 K/mcL (0.0-0.2); Basophils % 0.6 %; Eosinophils # 0.4 K/mcL (0.0-0.6); Eosinophils % 4.3 %; Hematocrit 30.1 % (37.5-50.1); Immature Granulocytes % 0.2 % (0-4); Lymphocytes % 24.8 %; Mean Corpuscular HGB Conc 32.2 g/dL (31.6-35.5); Mean Corpuscular Hemoglobin 28.3 pg (28.0-33.3); Mean Corpuscular Volume 87.8 fL (83.0-100.0); Mean Platelet Volume 10.2 fL (9.4-12.4); Monocytes # 0.9 K/mcL (0.0-1.3); Monocytes % 10.5 %; Neutrophils # 4.8 K/mcL (1.6-8.9); Platelet Count 354 K/mcL (140-400); Red Blood Count 3.43 M/mcL (4.19-5.50); Red Cell Distribution Width 12.3 % (11.5-14.5); Segmented Neutrophils % 59.6 %; White Blood Count 8.1 K/mcL (4.3-11.1)
[2019-02-09 08:10] LABS: Hemoglobin 9.7 g/dL (12.9-16.9)
[2019-02-09 08:20] LABS: INR 1.4; Prothrombin Time 15.7 Seconds (9.4-12.1)
[2019-02-09 08:27] LABS: BUN/Creatinine Ratio 10 (6-26); Blood Urea Nitrogen 10 mg/dL (6-20); Calcium 8.7 mg/dL (8.6-10.3); Carbon Dioxide 29 mEq/L (23-29); Chloride 106 mEq/L (98-107); Glucose 197 mg/dL (70-105); Osmolality,Calculated 287 (280-300); Potassium 4.1 mEq/L (3.5-5.1); Sodium 136 mEq/L (136-145); eGFR For African Americans > 60 (> 60); eGFR For Non-African Americans > 60 (> 60)
[2019-02-09] MEDS: Gabapentin 400 MG CAPSULE PO SCH ×3 (09:25→21:35)
[2019-02-09] MEDS: *HR* HYDROcodone/Acet 7.5/325 mg TABLET PO PRN ×3 (09:25→21:43)
[2019-02-09] MEDS: Insulin LISPRO 300 UNITS/3 ML VIAL SQ SCH ×3 (09:28→21:36)
[2019-02-09] MEDS ORDERED: *HR* HYDROmorphone (PF) 1 MG/ML SYRINGE IVP PRN ×2 (10:37→13:15)
[2019-02-09] MEDS ORDERED: Ringers Solution, Lactated 1,000 ML IVC SCH ×2 (10:45→13:15)
[2019-02-09] MEDS ORDERED: *HR* Midazolam HCl 5 MG/5 ML VIAL IVP ONE (11:14)
[2019-02-09] MEDS ORDERED: *HR* FentaNYL (PF) 100 MCG/2 ML VIAL ONE (11:14)
[2019-02-09] MEDS ORDERED: Calcium Gluconate 1,000 MG/10 ML VIAL ONE (11:46)
[2019-02-09] MEDS ORDERED: ROPIVACAINE/PF/NS 0.25% 1 EACH SYRINGE INTRAART ONE (11:52)
[2019-02-09] MEDS ORDERED: traMADol 50 MG TABLET PO PRN (13:15)
[2019-02-09] MEDS ORDERED: Nitroglycerin 0.4 MG TAB.SUBL SL PRN (13:15)
[2019-02-09] MEDS ORDERED: Warfarin perPT PO PRN (13:15)
[2019-02-09] MEDS ORDERED: tiZANidine 4 MG TABLET PO PRN (13:15)
[2019-02-09] MEDS ORDERED: *HR* Dextrose 50 % in Water (Syg) 50 ML SYRINGE IVP PRN (13:15)
[2019-02-09] MEDS ORDERED: Naloxone 0.4 MG/ML INJ IVP PRN (13:15)
[2019-02-09] MEDS ORDERED: Acetaminophen 325 MG TABLET PO PRN (13:15)
[2019-02-09] MEDS ORDERED: Dextrose Gel 15 GM/37.5 ML TUBE PO PRN ×2 (13:15)
[2019-02-09] MEDS ORDERED: 0.9 % Sodium Chloride 1,000 ML IVC SCH (15:15)
[2019-02-09] MEDS ORDERED: *HR* Warfarin 3 MG TABLET PO ONE (18:00)
[2019-02-09] MEDS ORDERED: Insulin DETEMIR 100 UNIT/ML X5UNITS SQ SCH (21:00)
[2019-02-09] MEDS: Insulin DETEMIR 100 UNIT/ML X5UNITS SQ SCH (21:37)
[2019-02-10 04:23] LABS: INR 1.3
[2019-02-10] MEDS: Piperacillin/Tazobactam 3.375 GM in 0.9 % Sodium Chloride Mini Bag 100 ML IVPB SCH ×3 (05:52→21:41)
[2019-02-10] MEDS: Insulin LISPRO 300 UNITS/3 ML VIAL SQ SCH ×4 (08:35→21:55)
[2019-02-10] MEDS: *HR* HYDROcodone/Acet 7.5/325 mg TABLET PO PRN ×3 (09:35→23:51)
[2019-02-10] MEDS: Gabapentin 400 MG CAPSULE PO SCH ×3 (09:36→21:37)
[2019-02-10 11:15] LABS: Hematocrit 33.3 % (37.5-50.1); Hemoglobin 11.1 g/dL (12.9-16.9)
[2019-02-10] MEDS ORDERED: *HR* Warfarin 3 MG TABLET PO ONE (18:00)
[2019-02-10] MEDS: Insulin DETEMIR 100 UNIT/ML X5UNITS SQ SCH (21:38)
[2019-02-11] MEDS: Piperacillin/Tazobactam 3.375 GM in 0.9 % Sodium Chloride Mini Bag 100 ML IVPB SCH (05:44)
[2019-02-11 06:03] LABS: Basophils # 0.1 K/mcL (0.0-0.2); Basophils % 0.8 %; Eosinophils # 0.3 K/mcL (0.0-0.6); Eosinophils % 3.9 %; Hematocrit 28.2 % (37.5-50.1); Immature Granulocytes % 0.3 % (0-4); Lymphocytes # 2.4 K/mcL (0.6-4.6); Lymphocytes % 29.8 %; Mean Corpuscular Hemoglobin 27.9 pg (28.0-33.3); Mean Corpuscular Volume 84.7 fL (83.0-100.0); Mean Platelet Volume 9.9 fL (9.4-12.4); Monocytes # 0.8 K/mcL (0.0-1.3); Monocytes % 10.3 %; Neutrophils # 4.4 K/mcL (1.6-8.9); Platelet Count 352 K/mcL (140-400); Red Blood Count 3.33 M/mcL (4.19-5.50); Red Cell Distribution Width 12.4 % (11.5-14.5); Segmented Neutrophils % 54.9 %
[2019-02-11 06:07] LABS: Hemoglobin 9.3 g/dL (12.9-16.9)
[2019-02-11 06:10] LABS: INR 1.6; Prothrombin Time 17.9 Seconds (9.4-12.1)
[2019-02-11 06:26] LABS: BUN/Creatinine Ratio 10 (6-26); Blood Urea Nitrogen 9 mg/dL (6-20); Carbon Dioxide 27 mEq/L (23-29); Chloride 103 mEq/L (98-107); Glucose 229 mg/dL (70-105); Osmolality,Calculated 290 (280-300); Potassium 3.9 mEq/L (3.5-5.1); Sodium 137 mEq/L (136-145); eGFR For African Americans > 60 (> 60); eGFR For Non-African Americans > 60 (> 60)
[2019-02-11] MEDS: Gabapentin 400 MG CAPSULE PO SCH (10:19)
[2019-02-11] MEDS: *HR* HYDROcodone/Acet 7.5/325 mg TABLET PO PRN (10:21)
[2019-02-11] MEDS: Insulin LISPRO 300 UNITS/3 ML VIAL SQ SCH ×2 (10:36→12:51)
[2019-02-11 14:10] VITALS: BP 135/81
[2019-02-11] MEDS ORDERED: *HR* Warfarin 3 MG TABLET PO ONE (18:00)
[2019-02-11] MEDS ORDERED: Aminoglycoside Consult 1 EACH MC ONE (18:20)
[2019-02-11] MEDS ORDERED: Insulin DETEMIR 100 UNIT/ML X5UNITS SQ SCH (21:00)
== END 2019-02-11 18:21 | disposition home health service (06) | DRG 711 ==
LOC: 3ANU 15:26 → EMEROOARM 15:26 → SUATTDRO 20:33 → 3ANU 20:42
PROVIDERS: ADMIT Internal Medicine; ATTEND Family Medicine

== ENCOUNTER 2019-03-03 18:57 | Inpatient (IN) ==
[2019-03-03 20:27] LABS: Basophils # 0.1 K/mcL (0.0-0.2); Basophils % 0.8 %; Eosinophils # 0.3 K/mcL (0.0-0.6); Eosinophils % 3.7 %; Hematocrit 38.7 % (37.5-50.1); Hemoglobin 13.1 g/dL (12.9-16.9); Immature Granulocytes % 0.4 % (0-4); Lymphocytes # 1.5 K/mcL (0.6-4.6); Lymphocytes % 20.3 %; Mean Corpuscular HGB Conc 33.9 g/dL (31.6-35.5); Mean Corpuscular Hemoglobin 28.7 pg (28.0-33.3); Mean Corpuscular Volume 84.9 fL (83.0-100.0); Mean Platelet Volume 9.9 fL (9.4-12.4); Monocytes # 0.7 K/mcL (0.0-1.3); Monocytes % 9.4 %; Platelet Count 448 K/mcL (140-400); Red Blood Count 4.56 M/mcL (4.19-5.50); Red Cell Distribution Width 13.3 % (11.5-14.5); Segmented Neutrophils % 65.4 %; White Blood Count 7.6 K/mcL (4.3-11.1)
[2019-03-03 20:49] LABS: BUN/Creatinine Ratio 19 (6-26); Blood Urea Nitrogen 38 mg/dL (6-20); Calcium 9.8 mg/dL (8.6-10.3); Carbon Dioxide 21 mEq/L (23-29); Chloride 99 mEq/L (98-107); Glucose 282 mg/dL (70-105); Magnesium 1.9 mg/dL (1.6-2.6); Osmolality,Calculated 287 (280-300); Sodium 129 mEq/L (136-145); eGFR For African Americans 44 (> 60); eGFR For Non-African Americans 36 (> 60)
[2019-03-03] MEDS ORDERED: 0.9 % Sodium Chloride 1,000 ML IVC ONE ×2 (20:52→21:10)
[2019-03-03] MEDS ORDERED: Albuterol 2.5 MG/3 ML NEBULIZER IH ONE (20:53)
[2019-03-03] MEDS ORDERED: Insulin Human Regular 10 UNIT in 0.9 % Sodium Chloride 10 ML IV ONE (20:54)
[2019-03-03] MEDS ORDERED: *HR* Dextrose 50 % in Water (Syg) 50 ML SYRINGE IVP STA (20:55)
[2019-03-03] MEDS ORDERED: Calcium Gluconate 1gm/50mL IVPB STA (20:57)
[2019-03-03] MEDS ORDERED: Sodium Bicarbonate 50 MEQ/50 ML VIAL IVP STA (20:59)
[2019-03-03] MEDS ORDERED: *HR* Dextrose 50 % in Water (Syg) 50 ML SYRINGE ONE (21:04)
[2019-03-03] MEDS ORDERED: Calcium Gluconate 1gm/50mL 2 GM/100 ML BAG IVPB ONE (21:04)
[2019-03-03 21:38] LABS: Creatine Kinase 159 Units/L (30-223)
[2019-03-03 23:01] LABS: INR 2.3; Prothrombin Time 26.2 Seconds (9.4-12.1)
[2019-03-03 23:04] LABS: Activated Partial Thrombo Time 42.5 Seconds (26.0-36.0)
[2019-03-04] MEDS ORDERED: Naloxone 0.4 MG/ML INJ IVP PRN (00:12)
[2019-03-04 01:11] LABS: Basophils # 0.1 K/mcL (0.0-0.2); Basophils % 0.6 %; Eosinophils # 0.2 K/mcL (0.0-0.6); Eosinophils % 2.6 %; Hemoglobin 12.3 g/dL (12.9-16.9); Immature Granulocytes % 0.2 % (0-4); Lymphocytes # 2.5 K/mcL (0.6-4.6); Lymphocytes % 26.6 %; Mean Corpuscular HGB Conc 33.2 g/dL (31.6-35.5); Mean Corpuscular Hemoglobin 28.6 pg (28.0-33.3); Mean Platelet Volume 10.8 fL (9.4-12.4); Neutrophils # 5.5 K/mcL (1.6-8.9); Platelet Count 324 K/mcL (140-400); Red Cell Distribution Width 13.5 % (11.5-14.5); White Blood Count 9.3 K/mcL (4.3-11.1)
[2019-03-04 01:47] LABS: Troponin I < 0.03 ng/mL (< 0.04)
[2019-03-04 01:48] LABS: Platelet Estimate Normal (Normal)
[2019-03-04 01:57] LABS: Albumin 3.9 g/dL (3.5-5.7); Bilirubin,Total 0.5 mg/dL (0.3-1.0); Calcium 9.6 mg/dL (8.6-10.3); Globulin 3.9 g/dL (2.4-3.5); Magnesium 1.8 mg/dL (1.6-2.6); Phosphorous 3.6 mg/dL (2.7-4.5); Potassium 4.8 mEq/L (3.5-5.1); Thyroid Stimulating Hormone 0.68 mcIU/mL (0.340-5.600); Total Protein 7.8 g/dL (6.4-8.9)
[2019-03-04] MEDS ORDERED: Nicotine 2 MG GUM BC PRN (02:58)
[2019-03-04 07:06] LABS: INR 2.3; Prothrombin Time 26.6 Seconds (9.4-12.1)
[2019-03-04 07:17] LABS: Troponin I 0.26 ng/mL (< 0.04)
[2019-03-04 08:07] LABS: Estimated Average Glucose 237 mg/dl
[2019-03-04] MEDS: Nicotine 21 MG PATCH.TD24 TD SCH (08:21)
[2019-03-04] MEDS: *HR* HYDROcodone/Acet 7.5/325 mg TABLET PO PRN ×2 (09:41→18:23)
[2019-03-04] MEDS ORDERED: Nitroglycerin 0.4 MG TAB.SUBL SL PRN (11:20)
[2019-03-04] MEDS ORDERED: Dextrose Gel 15 GM/37.5 ML TUBE PO PRN ×2 (11:21)
[2019-03-04] MEDS ORDERED: *HR* Dextrose 50 % in Water (Syg) 50 ML SYRINGE IVP PRN (11:21)
[2019-03-04] MEDS ORDERED: D5% in Water 1,000 ML IVC PRN (11:21)
[2019-03-04] MEDS ORDERED: Ringers Solution, Lactated 1,000 ML IVC SCH (11:30)
[2019-03-04 12:13] LABS: Uric Acid 6.1 mg/dL (2.3-7.6)
[2019-03-04] MEDS: Insulin LISPRO 300 UNITS/3 ML VIAL SQ SCH ×2 (13:58→16:53)
[2019-03-04 15:21] LABS: Hematocrit 35.8 % (37.5-50.1); Hemoglobin 11.2 g/dL (12.9-16.9); Mean Corpuscular HGB Conc 31.3 g/dL (31.6-35.5); Mean Corpuscular Hemoglobin 28.2 pg (28.0-33.3); Mean Corpuscular Volume 90.2 fL (83.0-100.0); Mean Platelet Volume 9.8 fL (9.4-12.4); Platelet Count 335 K/mcL (140-400); Red Blood Count 3.97 M/mcL (4.19-5.50); Red Cell Distribution Width 13.3 % (11.5-14.5); White Blood Count 6.1 K/mcL (4.3-11.1)
[2019-03-04 15:30] LABS: INR 2.2; Prothrombin Time 24.8 Seconds (9.4-12.1)
[2019-03-04 15:32] LABS: INR 2.2; Prothrombin Time 24.7 Seconds (9.4-12.1)
[2019-03-04] MEDS ORDERED: tiZANidine 4 MG TABLET PO PRN (15:41)
[2019-03-04] MEDS ORDERED: Warfarin perPT PO PRN (18:00)
[2019-03-04] MEDS ORDERED: *HR* Warfarin 3 MG TABLET PO ONE (18:00)
[2019-03-04] MEDS: Piperacillin/Tazobactam 3.375 GM in 0.9 % Sodium Chloride Mini Bag 100 ML IVPB SCH (18:13)
[2019-03-04] MEDS: Gabapentin 400 MG CAPSULE PO SCH (20:26)
[2019-03-04] MEDS: Ranolazine 500 MG TAB.ER.12H PO SCH (20:26)
[2019-03-04] MEDS: Melatonin 3 MG TABLET PO SCH (20:52)
[2019-03-04] MEDS ORDERED: *HR* Promethazine 25 MG/ML VIAL IVP PRN (21:38)
[2019-03-04] MEDS ORDERED: *HR* Metoprolol 5 MG/5 ML VIAL IVP ONE (21:39)
[2019-03-04 22:49] LABS: INR 2.1; Prothrombin Time 24.3 Seconds (9.4-12.1)
[2019-03-05] MEDS: Piperacillin/Tazobactam 3.375 GM in 0.9 % Sodium Chloride Mini Bag 100 ML IVPB SCH ×4 (00:21→23:56)
[2019-03-05] MEDS: Insulin LISPRO 300 UNITS/3 ML VIAL SQ SCH ×5 (00:35→23:56)
[2019-03-05] MEDS: 0.9 % Sodium Chloride 1,000 ML IVC SCH ×2 (04:08→17:22)
[2019-03-05 04:41] LABS: Basophils # 0.1 K/mcL (0.0-0.2); Basophils % 1.1 %; Eosinophils # 0.3 K/mcL (0.0-0.6); Eosinophils % 4.9 %; Hematocrit 32.3 % (37.5-50.1); Hemoglobin 10.5 g/dL (12.9-16.9); Immature Granulocytes % 0.2 % (0-4); Lymphocytes # 1.8 K/mcL (0.6-4.6); Lymphocytes % 32.3 %; Mean Corpuscular HGB Conc 32.5 g/dL (31.6-35.5); Mean Corpuscular Volume 86.1 fL (83.0-100.0); Mean Platelet Volume 9.9 fL (9.4-12.4); Monocytes # 0.6 K/mcL (0.0-1.3); Monocytes % 11.1 %; Neutrophils # 2.9 K/mcL (1.6-8.9); Platelet Count 362 K/mcL (140-400); Red Blood Count 3.75 M/mcL (4.19-5.50); Red Cell Distribution Width 13.3 % (11.5-14.5); Segmented Neutrophils % 50.4 %; White Blood Count 5.7 K/mcL (4.3-11.1)
[2019-03-05 04:47] LABS: Prothrombin Time 23.1 Seconds (9.4-12.1)
[2019-03-05 04:56] LABS: Alanine Aminotransferase 6 Units/L (7-52); Albumin 3.3 g/dL (3.5-5.7); Alkaline Phosphatase 76 Units/L (34-104); Aspartate Amino Transferase 11 Units/L (13-39); BUN/Creatinine Ratio 18 (6-26); Bilirubin,Total 0.6 mg/dL (0.3-1.0); Blood Urea Nitrogen 20 mg/dL (6-20); Carbon Dioxide 22 mEq/L (23-29); Chloride 107 mEq/L (98-107); Globulin 3.3 g/dL (2.4-3.5); Glucose 117 mg/dL (70-105); Osmolality,Calculated 286 (280-300); Potassium 4.9 mEq/L (3.5-5.1); Sodium 136 mEq/L (136-145); Total Protein 6.6 g/dL (6.4-8.9); eGFR For African Americans > 60 (> 60); eGFR For Non-African Americans > 60 (> 60)
[2019-03-05] MEDS ORDERED: *HR* Heparin 5,000 UNIT/ML VIAL IVP PRN ×2 (06:19)
[2019-03-05] MEDS ORDERED: Heparin 25,000 UNIT/250 ML D5W 25,000 UNIT/250 ML IV.SOLN IVC SCH (06:30)
[2019-03-05] MEDS: *HR* HYDROcodone/Acet 7.5/325 mg TABLET PO PRN ×2 (09:44→16:22)
[2019-03-05] MEDS: Gabapentin 400 MG CAPSULE PO SCH ×3 (09:45→20:04)
[2019-03-05] MEDS: Ranolazine 500 MG TAB.ER.12H PO SCH ×2 (09:46→20:03)
[2019-03-05] MEDS: Nicotine 21 MG PATCH.TD24 TD SCH (09:46)
[2019-03-05] MEDS ORDERED: Isovue-370 500 ML BOTTLE IVP ONE (10:02)
[2019-03-05] MEDS ORDERED: Perflutren Lipid Microsphere 1.3 ML in 0.9 % Sodium Chloride 8.7 ML IVP ONE (10:15)
[2019-03-05 16:39] LABS: Bilirubin,Urine Negative (Negative); Blood,Urine Negative (Negative); Clarity,Urine Clear (Clear); Color,Urine Yellow (Yellow); Glucose,Urine (UA) 500 mg/dL (Normal); Ketones,Urine Negative (Negative); Leukocyte Esterase,Urine Negative (Negative); Nitrite,Urine Negative (Negative); PH,Urine 5.5 pH Units (5.0-8.0); Protein,Urine Negative (Neg-Trace); Specific Gravity,Urine 1.028 (1.010-1.025); Urobilinogen,Urine Normal (Normal)
[2019-03-05 16:46] LABS: Sodium, Urine 97.5 mEq/L
[2019-03-05] MEDS ORDERED: *HR* Warfarin 3 MG TABLET PO ONE (18:00)
[2019-03-05] MEDS: Melatonin 3 MG TABLET PO SCH (20:05)
[2019-03-06] MEDS: Insulin LISPRO 300 UNITS/3 ML VIAL SQ SCH (06:04)
[2019-03-06 06:15] LABS: Basophils # 0.1 K/mcL (0.0-0.2); Basophils % 1.1 %; Eosinophils # 0.3 K/mcL (0.0-0.6); Eosinophils % 5.5 %; Hematocrit 30.5 % (37.5-50.1); Hemoglobin 10.1 g/dL (12.9-16.9); Lymphocytes # 1.9 K/mcL (0.6-4.6); Lymphocytes % 34.6 %; Mean Corpuscular HGB Conc 33.1 g/dL (31.6-35.5); Mean Corpuscular Hemoglobin 28.7 pg (28.0-33.3); Mean Corpuscular Volume 86.6 fL (83.0-100.0); Mean Platelet Volume 9.6 fL (9.4-12.4); Monocytes # 0.5 K/mcL (0.0-1.3); Monocytes % 8.9 %; Neutrophils # 2.8 K/mcL (1.6-8.9); Platelet Count 335 K/mcL (140-400); Red Blood Count 3.52 M/mcL (4.19-5.50); Red Cell Distribution Width 13.5 % (11.5-14.5); Segmented Neutrophils % 49.9 %; White Blood Count 5.6 K/mcL (4.3-11.1)
[2019-03-06 06:22] LABS: INR 1.9; Prothrombin Time 21.2 Seconds (9.4-12.1)
[2019-03-06 06:45] LABS: BUN/Creatinine Ratio 15 (6-26); Blood Urea Nitrogen 18 mg/dL (6-20); Calcium 8.8 mg/dL (8.6-10.3); Carbon Dioxide 22 mEq/L (23-29); Chloride 108 mEq/L (98-107); Glucose 115 mg/dL (70-105); Osmolality,Calculated 289 (280-300); Potassium 4.8 mEq/L (3.5-5.1); Sodium 138 mEq/L (136-145); Troponin I 0.24 ng/mL (< 0.04); eGFR For African Americans > 60 (> 60); eGFR For Non-African Americans > 60 (> 60)
[2019-03-06] MEDS: Piperacillin/Tazobactam 3.375 GM in 0.9 % Sodium Chloride Mini Bag 100 ML IVPB SCH (08:36)
[2019-03-06] MEDS: Nicotine 21 MG PATCH.TD24 TD SCH (08:41)
[2019-03-06 08:42] VITALS: BP 126/77
[2019-03-06] MEDS: Ranolazine 500 MG TAB.ER.12H PO SCH (08:43)
[2019-03-06] MEDS: Gabapentin 400 MG CAPSULE PO SCH (08:43)
[2019-03-06] MEDS: *HR* HYDROcodone/Acet 7.5/325 mg TABLET PO PRN (08:46)
[2019-03-06] MEDS ORDERED: Aminoglycoside Consult 1 EACH MC ONE (11:12)
[2019-03-06] MEDS ORDERED: *HR* Warfarin 3 MG TABLET PO ONE (18:00)
[2019-03-06] MEDS ORDERED: Doxycycline 100 MG CAPSULE PO SCH (18:00)
== END 2019-03-06 11:13 | disposition home health service (06) | DRG 383 ==
LOC: EMEROOARM 18:57 → 2ANU 18:57 → SUATTDRO 03-04 01:16
PROVIDERS: ADMIT Family Medicine; ATTEND Family Medicine

== ENCOUNTER 2019-03-25 19:35 | Inpatient (IN) ==
[2019-03-25] MEDS ORDERED: Morphine Sulfate 2 MG/ML SYRINGE IVP ONE (19:51)
[2019-03-25 19:57] LABS: Basophils # 0.1 K/mcL (0.0-0.2); Basophils % 0.8 %; Eosinophils # 0.2 K/mcL (0.0-0.6); Eosinophils % 2.4 %; Hematocrit 36.8 % (37.5-50.1); Hemoglobin 12.5 g/dL (12.9-16.9); Immature Granulocytes % 0.3 % (0-4); Lymphocytes % 26.2 %; Mean Corpuscular Hemoglobin 28.8 pg (28.0-33.3); Mean Corpuscular Volume 84.8 fL (83.0-100.0); Mean Platelet Volume 10.5 fL (9.4-12.4); Monocytes # 0.7 K/mcL (0.0-1.3); Monocytes % 8.5 %; Neutrophils # 4.8 K/mcL (1.6-8.9); Platelet Count 401 K/mcL (140-400); Red Blood Count 4.34 M/mcL (4.19-5.50); Red Cell Distribution Width 13.9 % (11.5-14.5); Segmented Neutrophils % 61.8 %; White Blood Count 7.8 K/mcL (4.3-11.1)
[2019-03-25 20:03] LABS: INR 1.8; Prothrombin Time 20.4 Seconds (9.4-12.1)
[2019-03-25 20:15] LABS: Albumin 3.9 g/dL (3.5-5.7); Albumin/Globulin Ratio 1.2 (1.1-2.2); Bilirubin,Indirect 0.4 mg/dL (0.0-1.0); Bilirubin,Total 0.4 mg/dL (0.3-1.0); Globulin 3.2 g/dL (2.4-3.5); Total Protein 7.1 g/dL (6.4-8.9)
[2019-03-25] MEDS: Nitroglycerin 0.4 MG TAB.SUBL SL PRN ×3 (20:15→20:25)
[2019-03-25 20:16] LABS: BUN/Creatinine Ratio 16 (6-26); Blood Urea Nitrogen 14 mg/dL (6-20); Calcium 9.2 mg/dL (8.6-10.3); Carbon Dioxide 27 mEq/L (23-29); Chloride 104 mEq/L (98-107); Glucose 256 mg/dL (70-105); Osmolality,Calculated 295 (280-300); Sodium 138 mEq/L (136-145); eGFR For African Americans > 60 (> 60); eGFR For Non-African Americans > 60 (> 60)
[2019-03-25 20:21] LABS: Troponin I 0.16 ng/mL (< 0.04)
[2019-03-25] MEDS ORDERED: *HR* Heparin 5,000 UNIT/ML VIAL IVP PRN (21:03)
[2019-03-25] MEDS ORDERED: *HR* Heparin 5,000 UNIT/ML VIAL IVP ONE (21:03)
[2019-03-25] MEDS: Heparin 25,000 UNIT/250 ML D5W 25,000 UNIT/250 ML IV.SOLN IVC SCH (21:20)
[2019-03-25 21:24] LABS: Hematocrit 34.1 % (37.5-50.1); Hemoglobin 11.7 g/dL (12.9-16.9); Mean Corpuscular HGB Conc 34.3 g/dL (31.6-35.5); Mean Corpuscular Volume 84.6 fL (83.0-100.0); Mean Platelet Volume 10.3 fL (9.4-12.4); Platelet Count 374 K/mcL (140-400); Red Blood Count 4.03 M/mcL (4.19-5.50); Red Cell Distribution Width 13.9 % (11.5-14.5); White Blood Count 7.3 K/mcL (4.3-11.1)
[2019-03-25 21:33] LABS: INR 1.8; Prothrombin Time 20.1 Seconds (9.4-12.1)
[2019-03-26] MEDS ORDERED: Dextrose Gel 15 GM/37.5 ML TUBE PO PRN ×2 (01:47)
[2019-03-26] MEDS ORDERED: Morphine Sulfate 2 MG/ML SYRINGE IVP PRN (01:47)
[2019-03-26] MEDS ORDERED: D5% in Water 1,000 ML IVC PRN (01:47)
[2019-03-26] MEDS ORDERED: Naloxone 0.4 MG/ML INJ IVP PRN (01:47)
[2019-03-26] MEDS ORDERED: *HR* Dextrose 50 % in Water (Syg) 50 ML SYRINGE IVP PRN (01:47)
[2019-03-26] MEDS ORDERED: Nitroglycerin 25 MG/250 ML INFUS..BTL IVC SCH (02:00)
[2019-03-26 03:55] LABS: Basophils # 0.1 K/mcL (0.0-0.2); Basophils % 1.1 %; Eosinophils # 0.2 K/mcL (0.0-0.6); Eosinophils % 2.8 %; Hematocrit 34.1 % (37.5-50.1); Hemoglobin 11.5 g/dL (12.9-16.9); Immature Granulocytes % 0.2 % (0-4); Lymphocytes # 2.7 K/mcL (0.6-4.6); Lymphocytes % 41.7 %; Mean Corpuscular HGB Conc 33.7 g/dL (31.6-35.5); Mean Corpuscular Hemoglobin 29.1 pg (28.0-33.3); Mean Corpuscular Volume 86.3 fL (83.0-100.0); Mean Platelet Volume 10.8 fL (9.4-12.4); Monocytes # 0.6 K/mcL (0.0-1.3); Monocytes % 8.9 %; Neutrophils # 2.9 K/mcL (1.6-8.9); Platelet Count 333 K/mcL (140-400); Red Blood Count 3.95 M/mcL (4.19-5.50); Red Cell Distribution Width 13.9 % (11.5-14.5); Segmented Neutrophils % 45.3 %; White Blood Count 6.4 K/mcL (4.3-11.1)
[2019-03-26 04:04] LABS: INR 1.9; Prothrombin Time 21.4 Seconds (9.4-12.1)
[2019-03-26 04:19] LABS: Alanine Aminotransferase 5 Units/L (7-52); Albumin 3.4 g/dL (3.5-5.7); Albumin/Globulin Ratio 1.1 (1.1-2.2); Alkaline Phosphatase 64 Units/L (34-104); Aspartate Amino Transferase 8 Units/L (13-39); BUN/Creatinine Ratio 17 (6-26); Bilirubin,Total 0.3 mg/dL (0.3-1.0); Blood Urea Nitrogen 14 mg/dL (6-20); Carbon Dioxide 26 mEq/L (23-29); Chloride 102 mEq/L (98-107); Chol/HDL Ratio 4.8 (0-4.9); Cholesterol 153 mg/dL (< 200); Glucose 293 mg/dL (70-105); HDL Cholesterol 32 mg/dL (40-59); LDL Cholesterol,Calculated 82 mg/dL (0-99); Magnesium 1.7 mg/dL (1.6-2.6); Osmolality,Calculated 293 (280-300); Potassium 3.5 mEq/L (3.5-5.1); Sodium 136 mEq/L (136-145); Total Protein 6.4 g/dL (6.4-8.9); Triglycerides 195 mg/dL (< 150); eGFR For African Americans > 60 (> 60); eGFR For Non-African Americans > 60 (> 60)
[2019-03-26] MEDS: Insulin LISPRO 300 UNITS/3 ML VIAL SQ SCH ×3 (06:00→18:58)
[2019-03-26 09:59] LABS: Estimated Average Glucose 223 mg/dl
[2019-03-26] MEDS ORDERED: Perflutren Lipid Microsphere 1.3 ML in 0.9 % Sodium Chloride 8.7 ML IVP ONE (10:04)
[2019-03-26] MEDS ORDERED: Perflutren Lipid Microsphere 2 ML VIAL ONE (10:11)
[2019-03-26] MEDS ORDERED: traMADol 50 MG TABLET PO PRN (10:42)
[2019-03-26] MEDS: Aspirin 81 MG TAB.CHEW PO SCH (10:46)
[2019-03-26] MEDS: Ranolazine 500 MG TAB.ER.12H PO SCH ×2 (11:52→21:43)
[2019-03-26] MEDS: Isosorbide MONOnitrate (24 HR) 60 MG TAB.ER.24H PO SCH (11:52)
[2019-03-26] MEDS: *HR* Heparin 5,000 UNIT/ML VIAL IVP PRN (11:52)
[2019-03-26] MEDS: *HR* OxyCODONE/APAP 5/325 TABLET PO PRN ×2 (13:50→18:57)
[2019-03-26] MEDS: Heparin 25,000 UNIT/250 ML D5W 25,000 UNIT/250 ML IV.SOLN IVC SCH (22:28)
[2019-03-27 02:01] LABS: Basophils # 0.1 K/mcL (0.0-0.2); Eosinophils # 0.2 K/mcL (0.0-0.6); Eosinophils % 3.1 %; Hematocrit 32.7 % (37.5-50.1); Immature Granulocytes % 0.2 % (0-4); Lymphocytes # 2.9 K/mcL (0.6-4.6); Lymphocytes % 47.1 %; Mean Corpuscular HGB Conc 33.6 g/dL (31.6-35.5); Mean Corpuscular Hemoglobin 28.8 pg (28.0-33.3); Mean Corpuscular Volume 85.6 fL (83.0-100.0); Mean Platelet Volume 10.8 fL (9.4-12.4); Monocytes # 0.6 K/mcL (0.0-1.3); Monocytes % 9.8 %; Neutrophils # 2.4 K/mcL (1.6-8.9); Platelet Count 344 K/mcL (140-400); Red Blood Count 3.82 M/mcL (4.19-5.50); Red Cell Distribution Width 14.2 % (11.5-14.5); Segmented Neutrophils % 38.8 %; White Blood Count 6.1 K/mcL (4.3-11.1)
[2019-03-27 02:23] LABS: Alanine Aminotransferase 4 Units/L (7-52); Albumin 3.3 g/dL (3.5-5.7); Albumin/Globulin Ratio 1.2 (1.1-2.2); Alkaline Phosphatase 61 Units/L (34-104); Aspartate Amino Transferase 8 Units/L (13-39); BUN/Creatinine Ratio 16 (6-26); Bilirubin,Total 0.3 mg/dL (0.3-1.0); Blood Urea Nitrogen 16 mg/dL (6-20); Calcium 8.8 mg/dL (8.6-10.3); Carbon Dioxide 27 mEq/L (23-29); Chloride 103 mEq/L (98-107); Globulin 2.8 g/dL (2.4-3.5); Glucose 128 mg/dL (70-105); Osmolality,Calculated 291 (280-300); Potassium 3.7 mEq/L (3.5-5.1); Sodium 139 mEq/L (136-145); Total Protein 6.1 g/dL (6.4-8.9); eGFR For African Americans > 60 (> 60); eGFR For Non-African Americans > 60 (> 60)
[2019-03-27] MEDS: *HR* Heparin 5,000 UNIT/ML VIAL IVP PRN (02:49)
[2019-03-27] MEDS ORDERED: Acetaminophen IV 500 MG/50 ML INFUS..BTL IVPB ONE (03:04)
[2019-03-27] MEDS ORDERED: Insulin LISPRO 300 UNITS/3 ML VIAL SQ SCH ×2 (07:30→21:00)
[2019-03-27] MEDS ORDERED: *HR* Warfarin 3 MG TABLET PO SCH ×2 (08:30)
[2019-03-27 08:54] VITALS: BP 147/83
[2019-03-27] MEDS: Aspirin 81 MG TAB.CHEW PO SCH (08:56)
[2019-03-27] MEDS: *HR* OxyCODONE/APAP 5/325 TABLET PO PRN (08:56)
[2019-03-27] MEDS: Ranolazine 500 MG TAB.ER.12H PO SCH (08:56)
[2019-03-27] MEDS: Isosorbide MONOnitrate (24 HR) 60 MG TAB.ER.24H PO SCH (08:56)
== END 2019-03-27 10:21 | disposition home or self-care (01) | DRG 190 ==
LOC: EMEROOARM 19:35 → 3BNU 19:35
PROVIDERS: ADMIT Family Medicine; ATTEND Family Medicine

== ENCOUNTER 2021-01-23 02:27 | Inpatient (IN) ==
[2021-01-23] MEDS ORDERED: Naloxone 0.4 MG/ML INJ IVP PRN (06:31)
[2021-01-23] MEDS ORDERED: Ondansetron 4 MG/2 ML VIAL IVP PRN (06:31)
[2021-01-23] MEDS ORDERED: *HR* Heparin 5,000 UNIT/ML VIAL IVP PRN ×2 (06:34)
[2021-01-23] MEDS ORDERED: Perflutren Lipid Microsphere 1.3 ML in 0.9 % Sodium Chloride 8.7 ML IVP PRN (06:35)
[2021-01-23] MEDS ORDERED: Dextrose Gel 15 GM/37.5 ML TUBE PO PRN ×2 (06:35)
[2021-01-23] MEDS ORDERED: D5% in Water 1,000 ML IVC PRN (06:35)
[2021-01-23] MEDS ORDERED: *HR* Dextrose 50 % in Water (Vial) 50 ML VIAL IVP PRN (06:35)
[2021-01-23] MEDS: Heparin 25,000UNIT/250ML 1/2NS 25,000 UNIT/250 ML IV.SOLN IVC SCH ×2 (06:58→09:44)
[2021-01-23 07:40] LABS: Basophils % 0.3 %; Hematocrit 40.1 % (37.5-50.1); Hemoglobin 12.8 g/dL (12.9-16.9); Immature Granulocytes % 0.2 % (0-4); Lymphocytes # 2.1 K/mcL (0.6-4.6); Lymphocytes % 36.9 %; Mean Corpuscular HGB Conc 31.9 g/dL (31.6-35.5); Mean Corpuscular Hemoglobin 26.4 pg (28.0-33.3); Mean Corpuscular Volume 82.9 fL (83.0-100.0); Mean Platelet Volume 10.5 fL (9.4-12.4); Monocytes # 0.7 K/mcL (0.0-1.3); Monocytes % 11.6 %; Neutrophils # 2.9 K/mcL (1.6-8.9); Platelet Count 194 K/mcL (140-400); Red Blood Count 4.84 M/mcL (4.19-5.50); Red Cell Distribution Width 13.9 % (11.5-14.5); White Blood Count 5.8 K/mcL (4.3-11.1)
[2021-01-23 07:52] LABS: INR 1.4; Prothrombin Time 15.6 Seconds (9.4-12.1)
[2021-01-23 08:00] LABS: Calcium 8.3 mg/dL (8.6-10.3); Chol/HDL Ratio 5.1 (0-4.9); Magnesium 1.6 mg/dL (1.6-2.6); Potassium 3.6 mEq/L (3.5-5.1)
[2021-01-23 08:16] LABS: Thyroid Stimulating Hormone 0.407 mcIU/mL (0.340-5.600)
[2021-01-23 09:16] LABS: Estimated Average Glucose 266 mg/dl; Hemoglobin A1C 10.9 %
[2021-01-23] MEDS: Insulin LISPRO 300 UNITS/3 ML VIAL SUBQ SCH ×3 (09:39→16:49)
[2021-01-23] MEDS ORDERED: Isosorbide MONOnitrate (24 HR) 30 MG TAB.ER.24H PO SCH (10:15)
[2021-01-23] MEDS: Metoprolol XL (24 HR) Succ 25 MG TAB.ER.24H PO SCH (12:22)
[2021-01-23 15:00] LABS: Bilirubin,Urine Negative (Negative); Blood,Urine Small (Negative); Clarity,Urine Clear (Clear); Color,Urine Yellow (Yellow); Glucose,Urine (UA) >=1000 mg/dL (Normal); Granular Casts,Urine Few per lpf (None Seen); Hyaline Casts,Urine Few per lpf (None Seen); Ketones,Urine Negative (Negative); Leukocyte Esterase,Urine Negative (Negative); Mucus,Urine Few per lpf (None-Few); Nitrite,Urine Negative (Negative); Protein,Urine 200 mg/dL (Neg-Trace); Renal Epithelial Cells,Urine Few per hpf (None-Few); Specific Gravity,Urine > 1.030 (1.010-1.025); Squamous Epithelial Cell,Urine Few per hpf (None-Few); Transitional Epi Cells,Urine Few per hpf (None-Few); Urobilinogen,Urine Normal (Normal)
[2021-01-23] MEDS ORDERED: tiZANidine 4 MG TABLET PO PRN (15:31)
[2021-01-23] MEDS: Acetaminophen 325 MG TABLET PO PRN (19:04)
[2021-01-23] MEDS: Gabapentin 400 MG CAPSULE PO SCH (22:13)
[2021-01-23] MEDS: Ranolazine 500 MG TAB.ER.12H PO SCH (22:13)
[2021-01-24 01:15] LABS: Basophils % 0.3 %; Eosinophils % 0.6 %; Hematocrit 34.2 % (37.5-50.1); Immature Granulocytes % 0.5 % (0-4); Lymphocytes # 1.6 K/mcL (0.6-4.6); Lymphocytes % 24.1 %; Mean Corpuscular HGB Conc 32.2 g/dL (31.6-35.5); Mean Corpuscular Hemoglobin 26.5 pg (28.0-33.3); Mean Corpuscular Volume 82.4 fL (83.0-100.0); Mean Platelet Volume 10.7 fL (9.4-12.4); Monocytes # 0.5 K/mcL (0.0-1.3); Monocytes % 8.2 %; Neutrophils # 4.3 K/mcL (1.6-8.9); Platelet Count 174 K/mcL (140-400); Red Blood Count 4.15 M/mcL (4.19-5.50); Red Cell Distribution Width 13.8 % (11.5-14.5); Segmented Neutrophils % 66.3 %; White Blood Count 6.4 K/mcL (4.3-11.1)
[2021-01-24 01:29] LABS: Albumin 2.8 g/dL (3.5-5.7); Bilirubin,Direct 0.1 mg/dL (0.0-0.2); Bilirubin,Indirect 0.2 mg/dL (0.0-1.0); Bilirubin,Total 0.3 mg/dL (0.3-1.0); Globulin 2.7 g/dL (2.4-3.5); Total Protein 5.5 g/dL (6.4-8.9)
[2021-01-24] MEDS: Isosorbide MONOnitrate (24 HR) 60 MG TAB.ER.24H PO SCH (08:45)
[2021-01-24] MEDS: Aspirin Enteric Coated 81 MG Tablet PO SCH (08:45)
[2021-01-24] MEDS: Metoprolol XL (24 HR) Succ 25 MG TAB.ER.24H PO SCH (08:45)
[2021-01-24] MEDS: Ranolazine 500 MG TAB.ER.12H PO SCH ×2 (08:45→20:42)
[2021-01-24] MEDS: Nystatin POWDER 30 GM BOTTLE TP SCH ×2 (08:46→22:35)
[2021-01-24] MEDS: Loratadine 10 MG TABLET PO SCH (08:46)
[2021-01-24] MEDS: Gabapentin 400 MG CAPSULE PO SCH ×3 (08:46→20:42)
[2021-01-24] MEDS: Insulin LISPRO 300 UNITS/3 ML VIAL SUBQ SCH ×3 (08:46→17:46)
[2021-01-24] MEDS: Heparin 25,000UNIT/250ML 1/2NS 25,000 UNIT/250 ML IV.SOLN IVC SCH ×2 (10:39→22:41)
[2021-01-24] MEDS: Acetaminophen 325 MG TABLET PO PRN (11:43)
[2021-01-24] MEDS ORDERED: 0.9 % Sodium Chloride 500 ML IVC ONE (18:15)
[2021-01-24] MEDS: Apixaban 5 MG TABLET PO SCH (22:35)
[2021-01-25 06:25] LABS: Basophils % 0.4 %; Eosinophils # 0.1 K/mcL (0.0-0.6); Eosinophils % 1.2 %; Immature Granulocytes % 0.6 % (0-4); Lymphocytes % 20.9 %; Mean Corpuscular HGB Conc 32.4 g/dL (31.6-35.5); Mean Corpuscular Volume 83.3 fL (83.0-100.0); Mean Platelet Volume 10.3 fL (9.4-12.4); Monocytes # 0.4 K/mcL (0.0-1.3); Monocytes % 8.9 %; Neutrophils # 3.3 K/mcL (1.6-8.9); Platelet Count 192 K/mcL (140-400); Red Blood Count 4.44 M/mcL (4.19-5.50); Red Cell Distribution Width 13.7 % (11.5-14.5); White Blood Count 4.8 K/mcL (4.3-11.1)
[2021-01-25 06:37] LABS: BUN/Creatinine Ratio 14 (6-26); Blood Urea Nitrogen 20 mg/dL (6-20); Calcium 8.1 mg/dL (8.6-10.3); Carbon Dioxide 22 mEq/L (23-29); Chloride 98 mEq/L (98-107); Glucose 178 mg/dL (70-105); Osmolality,Calculated 279 (280-300); Potassium 3.9 mEq/L (3.5-5.1); Sodium 131 mEq/L (136-145); eGFR For African Americans > 60 (> 60); eGFR For Non-African Americans 52 (> 60)
[2021-01-25] MEDS: Apixaban 5 MG TABLET PO SCH ×2 (08:32→20:25)
[2021-01-25] MEDS: Aspirin Enteric Coated 81 MG Tablet PO SCH (08:32)
[2021-01-25] MEDS: Ranolazine 500 MG TAB.ER.12H PO SCH ×2 (08:33→20:25)
[2021-01-25] MEDS: Gabapentin 400 MG CAPSULE PO SCH ×3 (08:33→20:25)
[2021-01-25] MEDS: Metoprolol XL (24 HR) Succ 25 MG TAB.ER.24H PO SCH (08:34)
[2021-01-25] MEDS: Loratadine 10 MG TABLET PO SCH (08:34)
[2021-01-25] MEDS: Isosorbide MONOnitrate (24 HR) 60 MG TAB.ER.24H PO SCH (08:34)
[2021-01-25] MEDS: Insulin LISPRO 300 UNITS/3 ML VIAL SUBQ SCH ×3 (08:37→16:02)
[2021-01-25] MEDS: Nystatin POWDER 30 GM BOTTLE TP SCH ×2 (08:43→20:25)
[2021-01-25] MEDS: Acetaminophen 325 MG TABLET PO PRN (12:10)
[2021-01-25] MEDS ORDERED: Insulin DETEMIR 100 UNIT/ML X5UNITS SUBQ SCH (21:00)
[2021-01-26] MEDS: Insulin LISPRO 300 UNITS/3 ML VIAL SUBQ SCH ×3 (07:56→18:04)
[2021-01-26 08:03] LABS: Basophils % 0.3 %; Eosinophils # 0.1 K/mcL (0.0-0.6); Eosinophils % 1.2 %; Hematocrit 34.7 % (37.5-50.1); Hemoglobin 11.5 g/dL (12.9-16.9); Immature Granulocytes % 0.5 % (0-4); Lymphocytes # 0.7 K/mcL (0.6-4.6); Mean Corpuscular HGB Conc 33.1 g/dL (31.6-35.5); Mean Corpuscular Volume 81.5 fL (83.0-100.0); Mean Platelet Volume 10.6 fL (9.4-12.4); Monocytes # 0.3 K/mcL (0.0-1.3); Monocytes % 5.7 %; Neutrophils # 4.8 K/mcL (1.6-8.9); Platelet Count 224 K/mcL (140-400); Red Blood Count 4.26 M/mcL (4.19-5.50); Red Cell Distribution Width 13.7 % (11.5-14.5); Segmented Neutrophils % 80.3 %
[2021-01-26 08:26] LABS: BUN/Creatinine Ratio 16 (6-26); Blood Urea Nitrogen 19 mg/dL (6-20); Calcium 8.4 mg/dL (8.6-10.3); Carbon Dioxide 22 mEq/L (23-29); Chloride 100 mEq/L (98-107); Glucose 128 mg/dL (70-105); Osmolality,Calculated 278 (280-300); Potassium 4.1 mEq/L (3.5-5.1); Sodium 132 mEq/L (136-145); eGFR For African Americans > 60 (> 60); eGFR For Non-African Americans > 60 (> 60)
[2021-01-26] MEDS: Ranolazine 500 MG TAB.ER.12H PO SCH ×2 (10:39→20:54)
[2021-01-26] MEDS: Metoprolol XL (24 HR) Succ 25 MG TAB.ER.24H PO SCH (10:39)
[2021-01-26] MEDS: Gabapentin 400 MG CAPSULE PO SCH ×3 (10:39→20:54)
[2021-01-26] MEDS: Loratadine 10 MG TABLET PO SCH (10:40)
[2021-01-26] MEDS: Isosorbide MONOnitrate (24 HR) 30 MG TAB.ER.24H PO SCH (10:40)
[2021-01-26] MEDS: Apixaban 5 MG TABLET PO SCH ×2 (10:40→20:38)
[2021-01-26] MEDS: Nystatin POWDER 30 GM BOTTLE TP SCH ×2 (10:40→20:54)
[2021-01-26 12:40] LABS: Bilirubin,Urine Negative (Negative); Blood,Urine Large (Negative); Budding Yeast,Urine Few per hpf (None Seen); Clarity,Urine Ex.Turbid (Clear); Color,Urine Light-Orange (Yellow); Glucose,Urine (UA) 70 mg/dL (Normal); Ketones,Urine 10 mg/dL (Negative); Leukocyte Esterase,Urine Small (Negative); Mucus,Urine Few per lpf (None-Few); Nitrite,Urine Negative (Negative); Protein,Urine >=300 mg/dL (Neg-Trace); RBC,Urine TNTC per hpf (0-3); Specific Gravity,Urine 1.021 (1.010-1.025); Urobilinogen,Urine Normal (Normal)
[2021-01-26] MEDS: Insulin DETEMIR 100 UNIT/ML X5UNITS SUBQ SCH (20:54)
[2021-01-27 07:14] LABS: Acinetobacter baumannii by PCR Not Detected (Not Detect); Enterobacter cloacae Cmplx PCR Not Detected (Not Detect); Enterobacteriaceae by PCR Not Detected (Not Detect); Enterococcus by PCR Not Detected (Not Detect); Escherichia coli by PCR Not Detected (Not Detect); Klebsiella oxytoca by PCR Not Detected (Not Detect); Klebsiella pneumoniae by PCR Not Detected (Not Detect); Proteus by PCR Not Detected (Not Detect); Serratia marcescens by PCR Not Detected (Not Detect); Staphylococcus aureus by PCR Not Detected (Not Detect); Staphylococcus by PCR Not Detected (Not Detect); Streptococcus agalactiae(B)PCR Not Detected (Not Detect); Streptococcus pneumoniae PCR DETECTED (Not Detect); Streptococcus pyogenes (A) PCR Not Detected (Not Detect)
[2021-01-27 07:15] LABS: Candida albicans by PCR Not Detected (Not Detect); Candida glabrata by PCR Not Detected (Not Detect); Candida krusei by PCR Not Detected (Not Detect); Candida parapsilosis by PCR Not Detected (Not Detect); Candida tropicalis by PCR Not Detected (Not Detect); Pseudomonas aeruginosa by PCR Not Detected (Not Detect)
[2021-01-27 07:40] LABS: Basophils % 0.1 %; Eosinophils % 0.1 %; Hematocrit 35.6 % (37.5-50.1); Hemoglobin 11.5 g/dL (12.9-16.9); Immature Granulocytes % 0.4 % (0-4); Lymphocytes # 0.7 K/mcL (0.6-4.6); Lymphocytes % 8.6 %; Mean Corpuscular HGB Conc 32.3 g/dL (31.6-35.5); Mean Corpuscular Hemoglobin 26.7 pg (28.0-33.3); Mean Corpuscular Volume 82.8 fL (83.0-100.0); Mean Platelet Volume 10.4 fL (9.4-12.4); Monocytes # 0.6 K/mcL (0.0-1.3); Monocytes % 7.3 %; Platelet Count 241 K/mcL (140-400); Segmented Neutrophils % 83.5 %; White Blood Count 8.4 K/mcL (4.3-11.1)
[2021-01-27] MEDS: cefTRIAXone 2,000 MG in Water for inj. (sterile) 20 ML IVP SCH (10:26)
[2021-01-27] MEDS: Nystatin POWDER 30 GM BOTTLE TP SCH ×2 (10:28→21:35)
[2021-01-27] MEDS: Isosorbide MONOnitrate (24 HR) 30 MG TAB.ER.24H PO SCH (10:29)
[2021-01-27] MEDS: Metoprolol XL (24 HR) Succ 25 MG TAB.ER.24H PO SCH (10:31)
[2021-01-27] MEDS: Loratadine 10 MG TABLET PO SCH (10:31)
[2021-01-27] MEDS: Gabapentin 400 MG CAPSULE PO SCH ×3 (10:32→21:14)
[2021-01-27] MEDS: Ranolazine 500 MG TAB.ER.12H PO SCH ×2 (10:32→21:13)
[2021-01-27] MEDS: Apixaban 5 MG TABLET PO SCH ×2 (10:32→21:14)
[2021-01-27] MEDS: Insulin LISPRO 300 UNITS/3 ML VIAL SUBQ SCH ×3 (10:33→16:56)
[2021-01-27 11:08] LABS: Chloride 100 mEq/L (98-107); Glucose 147 mg/dL (70-105); Potassium 4.1 mEq/L (3.5-5.1); Sodium 133 mEq/L (136-145)
[2021-01-27 13:01] LABS: BUN/Creatinine Ratio 15 (6-26); Blood Urea Nitrogen 16 mg/dL (6-20); Carbon Dioxide 17 mEq/L (23-29); Osmolality,Calculated 280 (280-300); eGFR For African Americans > 60 (> 60); eGFR For Non-African Americans > 60 (> 60)
[2021-01-27] MEDS: Insulin DETEMIR 100 UNIT/ML X5UNITS SUBQ SCH (22:03)
[2021-01-28 06:43] LABS: Basophils % 0.2 %; Eosinophils # 0.2 K/mcL (0.0-0.6); Eosinophils % 2.4 %; Hematocrit 34.6 % (37.5-50.1); Hemoglobin 10.9 g/dL (12.9-16.9); Immature Granulocytes % 0.5 % (0-4); Lymphocytes # 1.2 K/mcL (0.6-4.6); Lymphocytes % 14.5 %; Mean Corpuscular HGB Conc 31.5 g/dL (31.6-35.5); Mean Corpuscular Hemoglobin 26.8 pg (28.0-33.3); Mean Corpuscular Volume 85.2 fL (83.0-100.0); Mean Platelet Volume 10.5 fL (9.4-12.4); Monocytes # 0.8 K/mcL (0.0-1.3); Monocytes % 9.7 %; Platelet Count 266 K/mcL (140-400); Red Blood Count 4.06 M/mcL (4.19-5.50); Red Cell Distribution Width 14.3 % (11.5-14.5); Segmented Neutrophils % 72.7 %; White Blood Count 8.3 K/mcL (4.3-11.1)
[2021-01-28 07:19] LABS: Albumin 2.8 g/dL (3.5-5.7); Albumin/Globulin Ratio 0.9 (1.1-2.2); Bilirubin,Indirect 0.3 mg/dL (0.0-1.0); Bilirubin,Total 0.3 mg/dL (0.3-1.0); Total Protein 5.8 g/dL (6.4-8.9)
[2021-01-28] MEDS: Insulin LISPRO 300 UNITS/3 ML VIAL SUBQ SCH ×3 (10:23→18:29)
[2021-01-28] MEDS: Ranolazine 500 MG TAB.ER.12H PO SCH ×2 (10:39→21:14)
[2021-01-28] MEDS: Isosorbide MONOnitrate (24 HR) 30 MG TAB.ER.24H PO SCH (10:39)
[2021-01-28] MEDS: Loratadine 10 MG TABLET PO SCH (10:39)
[2021-01-28] MEDS: Nystatin POWDER 30 GM BOTTLE TP SCH ×2 (10:40→21:15)
[2021-01-28] MEDS: Gabapentin 400 MG CAPSULE PO SCH ×3 (10:40→21:14)
[2021-01-28] MEDS: Apixaban 5 MG TABLET PO SCH ×2 (10:40→21:14)
[2021-01-28] MEDS: cefTRIAXone 2,000 MG in Water for inj. (sterile) 20 ML IVP SCH (10:40)
[2021-01-28] MEDS: Metoprolol XL (24 HR) Succ 25 MG TAB.ER.24H PO SCH (10:40)
[2021-01-28] MEDS: Acetaminophen 325 MG TABLET PO PRN (21:13)
[2021-01-28] MEDS: Insulin DETEMIR 100 UNIT/ML X5UNITS SUBQ SCH (21:14)
[2021-01-29 02:06] LABS: Basophils % 0.3 %; Eosinophils # 0.2 K/mcL (0.0-0.6); Eosinophils % 3.4 %; Hematocrit 33.7 % (37.5-50.1); Hemoglobin 10.9 g/dL (12.9-16.9); Immature Granulocytes % 0.7 % (0-4); Lymphocytes # 0.9 K/mcL (0.6-4.6); Lymphocytes % 15.7 %; Mean Corpuscular HGB Conc 32.3 g/dL (31.6-35.5); Mean Corpuscular Hemoglobin 26.2 pg (28.0-33.3); Mean Platelet Volume 9.8 fL (9.4-12.4); Monocytes # 0.7 K/mcL (0.0-1.3); Neutrophils # 4.1 K/mcL (1.6-8.9); Platelet Count 302 K/mcL (140-400); Red Blood Count 4.16 M/mcL (4.19-5.50); Segmented Neutrophils % 68.9 %; White Blood Count 5.9 K/mcL (4.3-11.1)
[2021-01-29 02:19] LABS: BUN/Creatinine Ratio 18 (6-26); Blood Urea Nitrogen 19 mg/dL (6-20); Calcium 8.1 mg/dL (8.6-10.3); Carbon Dioxide 26 mEq/L (23-29); Chloride 99 mEq/L (98-107); Glucose 119 mg/dL (70-105); Osmolality,Calculated 281 (280-300); Potassium 3.8 mEq/L (3.5-5.1); Sodium 134 mEq/L (136-145); eGFR For African Americans > 60 (> 60); eGFR For Non-African Americans > 60 (> 60)
[2021-01-29] MEDS: Isosorbide MONOnitrate (24 HR) 30 MG TAB.ER.24H PO SCH (08:50)
[2021-01-29] MEDS: Gabapentin 400 MG CAPSULE PO SCH ×3 (08:51→20:08)
[2021-01-29] MEDS: Apixaban 5 MG TABLET PO SCH ×2 (08:51→20:08)
[2021-01-29] MEDS: Loratadine 10 MG TABLET PO SCH (08:51)
[2021-01-29] MEDS: Insulin LISPRO 300 UNITS/3 ML VIAL SUBQ SCH ×3 (08:52→17:30)
[2021-01-29] MEDS: cefTRIAXone 2,000 MG in Water for inj. (sterile) 20 ML IVP SCH (08:52)
[2021-01-29] MEDS: Metoprolol XL (24 HR) Succ 25 MG TAB.ER.24H PO SCH (08:52)
[2021-01-29] MEDS: Nystatin POWDER 30 GM BOTTLE TP SCH ×2 (09:45→20:10)
[2021-01-29] MEDS: Ranolazine 500 MG TAB.ER.12H PO SCH ×2 (09:46→20:08)
[2021-01-29] MEDS: Insulin DETEMIR 100 UNIT/ML X5UNITS SUBQ SCH (20:10)
[2021-01-30] MEDS ORDERED: Benzonatate 100 MG CAPSULE PO PRN (00:17)
[2021-01-30] MEDS: Insulin LISPRO 300 UNITS/3 ML VIAL SUBQ SCH ×3 (08:02→17:42)
[2021-01-30] MEDS: Nystatin POWDER 30 GM BOTTLE TP SCH ×2 (08:08→21:57)
[2021-01-30] MEDS: cefTRIAXone 2,000 MG in Water for inj. (sterile) 20 ML IVP SCH (08:08)
[2021-01-30] MEDS: Ranolazine 500 MG TAB.ER.12H PO SCH ×2 (08:09→21:56)
[2021-01-30] MEDS: Loratadine 10 MG TABLET PO SCH (08:09)
[2021-01-30] MEDS: Acetaminophen 325 MG TABLET PO PRN (08:10)
[2021-01-30] MEDS: Isosorbide MONOnitrate (24 HR) 30 MG TAB.ER.24H PO SCH (08:10)
[2021-01-30] MEDS: Metoprolol XL (24 HR) Succ 25 MG TAB.ER.24H PO SCH (08:10)
[2021-01-30] MEDS: Apixaban 5 MG TABLET PO SCH ×2 (08:11→21:57)
[2021-01-30] MEDS: Gabapentin 400 MG CAPSULE PO SCH ×3 (08:11→21:56)
[2021-01-30] MEDS: Insulin DETEMIR 100 UNIT/ML X5UNITS SUBQ SCH (21:57)
[2021-01-31 06:02] LABS: Basophils % 0.3 %; Eosinophils # 0.3 K/mcL (0.0-0.6); Eosinophils % 3.8 %; Immature Granulocytes % 1.2 % (0-4); Lymphocytes # 1.8 K/mcL (0.6-4.6); Lymphocytes % 24.6 %; Mean Corpuscular HGB Conc 32.9 g/dL (31.6-35.5); Mean Corpuscular Hemoglobin 26.7 pg (28.0-33.3); Mean Corpuscular Volume 81.2 fL (83.0-100.0); Mean Platelet Volume 9.9 fL (9.4-12.4); Monocytes # 0.7 K/mcL (0.0-1.3); Monocytes % 8.9 %; Neutrophils # 4.5 K/mcL (1.6-8.9); Platelet Count 381 K/mcL (140-400); Red Blood Count 4.68 M/mcL (4.19-5.50); Red Cell Distribution Width 13.9 % (11.5-14.5); Segmented Neutrophils % 61.2 %; White Blood Count 7.3 K/mcL (4.3-11.1)
[2021-01-31 06:03] LABS: Hemoglobin 12.5 g/dL (12.9-16.9)
[2021-01-31 06:20] LABS: BUN/Creatinine Ratio 19 (6-26); Blood Urea Nitrogen 17 mg/dL (6-20); Calcium 8.3 mg/dL (8.6-10.3); Carbon Dioxide 27 mEq/L (23-29); Chloride 97 mEq/L (98-107); Glucose 120 mg/dL (70-105); Osmolality,Calculated 279 (280-300); Sodium 133 mEq/L (136-145); eGFR For African Americans > 60 (> 60); eGFR For Non-African Americans > 60 (> 60)
[2021-01-31] MEDS: cefTRIAXone 2,000 MG in Water for inj. (sterile) 20 ML IVP SCH (08:57)
[2021-01-31] MEDS: Loratadine 10 MG TABLET PO SCH (08:58)
[2021-01-31] MEDS: Apixaban 5 MG TABLET PO SCH ×2 (08:58→20:34)
[2021-01-31] MEDS: Gabapentin 400 MG CAPSULE PO SCH ×3 (08:59→20:35)
[2021-01-31] MEDS: Isosorbide MONOnitrate (24 HR) 30 MG TAB.ER.24H PO SCH (08:59)
[2021-01-31] MEDS: Nystatin POWDER 30 GM BOTTLE TP SCH ×2 (09:00→23:43)
[2021-01-31] MEDS: Ranolazine 500 MG TAB.ER.12H PO SCH ×2 (09:01→20:35)
[2021-01-31] MEDS: Metoprolol XL (24 HR) Succ 25 MG TAB.ER.24H PO SCH (09:01)
[2021-01-31] MEDS: Insulin LISPRO 300 UNITS/3 ML VIAL SUBQ SCH ×3 (14:22→19:34)
[2021-01-31] MEDS: Insulin DETEMIR 100 UNIT/ML X5UNITS SUBQ SCH (20:34)
[2021-02-01] MEDS: Isosorbide MONOnitrate (24 HR) 30 MG TAB.ER.24H PO SCH (08:14)
[2021-02-01] MEDS: Gabapentin 400 MG CAPSULE PO SCH ×2 (08:14→16:38)
[2021-02-01] MEDS: Metoprolol XL (24 HR) Succ 25 MG TAB.ER.24H PO SCH (08:14)
[2021-02-01] MEDS: cefTRIAXone 2,000 MG in Water for inj. (sterile) 20 ML IVP SCH (08:15)
[2021-02-01] MEDS: Ranolazine 500 MG TAB.ER.12H PO SCH (08:15)
[2021-02-01] MEDS: Apixaban 5 MG TABLET PO SCH (08:15)
[2021-02-01] MEDS: Loratadine 10 MG TABLET PO SCH (08:15)
[2021-02-01] MEDS: Nystatin POWDER 30 GM BOTTLE TP SCH (08:16)
[2021-02-01] MEDS: Insulin LISPRO 300 UNITS/3 ML VIAL SUBQ SCH ×3 (08:56→18:39)
[2021-02-01 12:29] VITALS: BP 131/78; PULSE 77; TEMP 96.4; O2SAT 95
== END 2021-02-01 20:16 | DRG 137 ==
LOC: 2NENU → SUATTDRO 10:40 → 3ANU 01-25 22:16
PROVIDERS: ADMIT Internal Medicine; ATTEND Internal Medicine

== ENCOUNTER 2021-03-31 21:20 | Inpatient (IN) ==
[2021-04-01] MEDS ORDERED: Acetaminophen 325 MG TABLET PO PRN (00:07)
[2021-04-01] MEDS ORDERED: Ondansetron 4 MG/2 ML VIAL IVP PRN (00:07)
[2021-04-01] MEDS ORDERED: Naloxone 0.4 MG/ML INJ IVP PRN (00:07)
[2021-04-01] MEDS ORDERED: *HR* Heparin 5,000 UNIT/ML VIAL IVP PRN ×3 (00:12→00:24)
[2021-04-01] MEDS ORDERED: Heparin 25,000UNIT/250ML 1/2NS 25,000 UNIT/250 ML IV.SOLN IVC SCH (00:15)
[2021-04-01] MEDS: 0.9 % Sodium Chloride 1,000 ML IVC SCH ×2 (00:58→11:18)
[2021-04-01] MEDS: Heparin 25,000UNIT/250ML 1/2NS 25,000 UNIT/250 ML IV.SOLN IVC SCH ×2 (00:58→21:47)
[2021-04-01] MEDS ORDERED: Perflutren Lipid Microsphere 1.3 ML in 0.9 % Sodium Chloride 8.7 ML IVP PRN (01:40)
[2021-04-01] MEDS ORDERED: *HR* Dextrose 50 % in Water (Syg) 50 ML SYRINGE IVP PRN (01:46)
[2021-04-01] MEDS ORDERED: D5% in Water 1,000 ML IVC PRN (01:46)
[2021-04-01] MEDS ORDERED: Dextrose Gel 15 GM/37.5 ML TUBE PO PRN ×2 (01:46)
[2021-04-01 02:24] LABS: Basophils # 0.1 K/mcL (0.0-0.2); Basophils % 0.5 %; Eosinophils # 0.1 K/mcL (0.0-0.6); Eosinophils % 1.2 %; Hematocrit 30.6 % (37.5-50.1); Hemoglobin 9.7 g/dL (12.9-16.9); Immature Granulocytes % 0.4 % (0-4); Lymphocytes # 1.5 K/mcL (0.6-4.6); Lymphocytes % 15.9 %; Mean Corpuscular HGB Conc 31.7 g/dL (31.6-35.5); Mean Corpuscular Hemoglobin 26.9 pg (28.0-33.3); Mean Corpuscular Volume 84.8 fL (83.0-100.0); Mean Platelet Volume 10.7 fL (9.4-12.4); Monocytes # 0.7 K/mcL (0.0-1.3); Neutrophils # 6.9 K/mcL (1.6-8.9); Platelet Count 272 K/mcL (140-400); Red Blood Count 3.61 M/mcL (4.19-5.50); Red Cell Distribution Width 15.3 % (11.5-14.5); White Blood Count 9.3 K/mcL (4.3-11.1)
[2021-04-01] MEDS: Insulin LISPRO 300 UNITS/3 ML VIAL SUBQ SCH ×4 (02:35→17:21)
[2021-04-01 02:41] LABS: INR 1.3; Prothrombin Time 14.6 Seconds (9.4-12.1)
[2021-04-01 02:45] LABS: Calcium 8.7 mg/dL (8.6-10.3); Chol/HDL Ratio 4.5 (0-4.9); Magnesium 1.5 mg/dL (1.6-2.6); Potassium 3.6 mEq/L (3.5-5.1)
[2021-04-01 02:58] LABS: Thyroid Stimulating Hormone 0.581 mcIU/mL (0.340-5.600)
[2021-04-01 03:18] LABS: Estimated Average Glucose 183 mg/dl
[2021-04-01 06:42] LABS: Adenovirus Not Detected (Not Detect); Bordetella Pertussis Not Detected (Not Detect); Chlamydophila pneumoniae Not Detected (Not Detect); Coronavirus 229E Not Detected (Not Detect); Coronavirus HKU1 Not Detected (Not Detect); Coronavirus NL63 Not Detected (Not Detect); Coronavirus OC43 Not Detected (Not Detect); Human Metapneumovirus Not Detected (Not Detect); Human Rhinovirus/Enterovirus Not Detected (Not Detect); Influenza A Subtype 2009 H1 Not Detected (Not Detect); Influenza B Not Detected (Not Detect); Mycoplasma pneumoniae Not Detected (Not Detect); Parainfluenza Virus 1 Not Detected (Not Detect); Parainfluenza Virus 2 Not Detected (Not Detect); Parainfluenza Virus 3 Not Detected (Not Detect); Parainfluenza Virus 4 Not Detected (Not Detect); Respiratory Syncytial Virus Not Detected (Not Detect); SARS-CoV-2 Not Detected (Not Detect)
[2021-04-01] MEDS: Ranolazine 500 MG TAB.ER.12H PO SCH ×2 (10:22→21:46)
[2021-04-01] MEDS: Aspirin Enteric Coated 81 MG Tablet PO SCH (10:22)
[2021-04-01] MEDS: Metoprolol XL (24 HR) Succ 25 MG TAB.ER.24H PO SCH (10:22)
[2021-04-01] MEDS: Isosorbide MONOnitrate (24 HR) 60 MG TAB.ER.24H PO SCH (10:22)
[2021-04-01] MEDS: *HR* Heparin 5,000 UNIT/ML VIAL IVP PRN (18:41)
[2021-04-01] MEDS ORDERED: Gabapentin 400 MG CAPSULE PO ONE (23:05)
[2021-04-02 01:41] LABS: Basophils % 0.6 %; Eosinophils # 0.2 K/mcL (0.0-0.6); Eosinophils % 2.9 %; Hematocrit 27.7 % (37.5-50.1); Hemoglobin 8.6 g/dL (12.9-16.9); Immature Granulocytes % 0.4 % (0-4); Lymphocytes # 1.9 K/mcL (0.6-4.6); Lymphocytes % 26.5 %; Mean Corpuscular Hemoglobin 26.7 pg (28.0-33.3); Monocytes # 0.6 K/mcL (0.0-1.3); Monocytes % 8.8 %; Neutrophils # 4.3 K/mcL (1.6-8.9); Platelet Count 264 K/mcL (140-400); Red Blood Count 3.22 M/mcL (4.19-5.50); Red Cell Distribution Width 15.7 % (11.5-14.5); Segmented Neutrophils % 60.8 %; White Blood Count 7.1 K/mcL (4.3-11.1)
[2021-04-02 02:07] LABS: Alanine Aminotransferase < 3 Units/L (7-52); Alkaline Phosphatase 74 Units/L (34-104); Aspartate Amino Transferase 8 Units/L (13-39); BUN/Creatinine Ratio 9 (6-26); Bilirubin,Total 0.3 mg/dL (0.3-1.0); Blood Urea Nitrogen 14 mg/dL (6-20); Calcium 8.5 mg/dL (8.6-10.3); Carbon Dioxide 27 mEq/L (23-29); Chloride 104 mEq/L (98-107); Globulin 3.1 g/dL (2.4-3.5); Glucose 169 mg/dL (70-105); Osmolality,Calculated 292 (280-300); Potassium 3.8 mEq/L (3.5-5.1); Sodium 139 mEq/L (136-145); Total Protein 6.1 g/dL (6.4-8.9); eGFR For African Americans 57 (> 60); eGFR For Non-African Americans 47 (> 60)
[2021-04-02] MEDS: *HR* Heparin 5,000 UNIT/ML VIAL IVP PRN ×2 (02:55→18:25)
[2021-04-02] MEDS: Ranolazine 500 MG TAB.ER.12H PO SCH ×2 (09:50→20:10)
[2021-04-02] MEDS: Isosorbide MONOnitrate (24 HR) 60 MG TAB.ER.24H PO SCH (09:50)
[2021-04-02] MEDS: Insulin LISPRO 300 UNITS/3 ML VIAL SUBQ SCH ×3 (09:50→17:02)
[2021-04-02] MEDS: Aspirin Enteric Coated 81 MG Tablet PO SCH (09:50)
[2021-04-02] MEDS: Metoprolol XL (24 HR) Succ 25 MG TAB.ER.24H PO SCH (09:50)
[2021-04-02 10:32] LABS: Magnesium 1.9 mg/dL (1.6-2.6)
[2021-04-02] MEDS: Heparin 25,000UNIT/250ML 1/2NS 25,000 UNIT/250 ML IV.SOLN IVC SCH (14:45)
[2021-04-02] MEDS: Gabapentin 400 MG CAPSULE PO SCH (21:37)
[2021-04-03 00:38] LABS: Basophils # 0.1 K/mcL (0.0-0.2); Basophils % 0.8 %; Eosinophils # 0.2 K/mcL (0.0-0.6); Eosinophils % 3.6 %; Hematocrit 28.9 % (37.5-50.1); Hemoglobin 8.8 g/dL (12.9-16.9); Immature Granulocytes % 0.2 % (0-4); Lymphocytes # 1.6 K/mcL (0.6-4.6); Lymphocytes % 26.5 %; Mean Corpuscular HGB Conc 30.4 g/dL (31.6-35.5); Mean Corpuscular Hemoglobin 26.3 pg (28.0-33.3); Mean Corpuscular Volume 86.3 fL (83.0-100.0); Mean Platelet Volume 10.8 fL (9.4-12.4); Monocytes # 0.5 K/mcL (0.0-1.3); Monocytes % 8.5 %; Neutrophils # 3.7 K/mcL (1.6-8.9); Platelet Count 322 K/mcL (140-400); Red Blood Count 3.35 M/mcL (4.19-5.50); Red Cell Distribution Width 15.7 % (11.5-14.5); Segmented Neutrophils % 60.4 %; White Blood Count 6.1 K/mcL (4.3-11.1)
[2021-04-03 00:58] LABS: Alanine Aminotransferase 3 Units/L (7-52); Albumin 3.1 g/dL (3.5-5.7); Alkaline Phosphatase 79 Units/L (34-104); Aspartate Amino Transferase 7 Units/L (13-39); BUN/Creatinine Ratio 11 (6-26); Bilirubin,Total 0.3 mg/dL (0.3-1.0); Blood Urea Nitrogen 16 mg/dL (6-20); Calcium 8.6 mg/dL (8.6-10.3); Carbon Dioxide 26 mEq/L (23-29); Chloride 103 mEq/L (98-107); Globulin 3.1 g/dL (2.4-3.5); Glucose 183 mg/dL (70-105); Osmolality,Calculated 294 (280-300); Potassium 4.2 mEq/L (3.5-5.1); Sodium 139 mEq/L (136-145); Total Protein 6.2 g/dL (6.4-8.9); eGFR For African Americans > 60 (> 60); eGFR For Non-African Americans 52 (> 60)
[2021-04-03] MEDS: Heparin 25,000UNIT/250ML 1/2NS 25,000 UNIT/250 ML IV.SOLN IVC SCH (04:59)
[2021-04-03 07:09] VITALS: BP 143/86; PULSE 75; TEMP 98.3; O2SAT 92
[2021-04-03] MEDS: Insulin LISPRO 300 UNITS/3 ML VIAL SUBQ SCH (08:25)
[2021-04-03] MEDS: Gabapentin 400 MG CAPSULE PO SCH (08:29)
[2021-04-03] MEDS: Aspirin Enteric Coated 81 MG Tablet PO SCH (08:29)
[2021-04-03] MEDS: Metoprolol XL (24 HR) Succ 25 MG TAB.ER.24H PO SCH (08:29)
[2021-04-03] MEDS: Isosorbide MONOnitrate (24 HR) 60 MG TAB.ER.24H PO SCH (08:29)
[2021-04-03] MEDS: Ranolazine 500 MG TAB.ER.12H PO SCH (08:29)
[2021-04-03] MEDS ORDERED: Gabapentin 400 MG CAPSULE PO SCH (21:15)
== END 2021-04-03 16:51 | disposition home or self-care (01) | DRG 190 ==
LOC: 3BNU
PROVIDERS: ADMIT Internal Medicine; ATTEND Internal Medicine

== ENCOUNTER 2021-05-14 13:53 | Observation (INO) ==
[2021-05-14] MEDS ORDERED: Naloxone 0.4 MG/ML INJ IVP PRN (16:54)
[2021-05-14] MEDS ORDERED: Ondansetron 4 MG/2 ML VIAL IVP PRN (16:54)
[2021-05-14] MEDS ORDERED: Albuterol 2.5 MG/3 ML NEBULIZER IH PRN (16:56)
[2021-05-14] MEDS ORDERED: Nitroglycerin 0.4 MG TAB.SUBL SL PRN (16:58)
[2021-05-14] MEDS ORDERED: Ipratropium/Albuterol Neb 3 ML IH PRN (16:58)
[2021-05-14 18:46] LABS: Basophils # 0.1 K/mcL (0.0-0.2); Basophils % 0.7 %; Eosinophils # 0.3 K/mcL (0.0-0.6); Eosinophils % 3.5 %; Hematocrit 34.4 % (37.5-50.1); Hemoglobin 10.8 g/dL (12.9-16.9); Immature Granulocytes % 0.2 % (0-4); Lymphocytes # 2.7 K/mcL (0.6-4.6); Lymphocytes % 31.6 %; Mean Corpuscular HGB Conc 31.4 g/dL (31.6-35.5); Mean Corpuscular Hemoglobin 26.3 pg (28.0-33.3); Mean Corpuscular Volume 83.7 fL (83.0-100.0); Mean Platelet Volume 10.3 fL (9.4-12.4); Monocytes # 0.7 K/mcL (0.0-1.3); Monocytes % 8.5 %; Neutrophils # 4.7 K/mcL (1.6-8.9); Platelet Count 469 K/mcL (140-400); Red Blood Count 4.11 M/mcL (4.19-5.50); Red Cell Distribution Width 14.2 % (11.5-14.5); Segmented Neutrophils % 55.5 %; White Blood Count 8.5 K/mcL (4.3-11.1)
[2021-05-14 18:55] LABS: INR 1.1; Prothrombin Time 12.2 Seconds (9.4-12.1)
[2021-05-14 18:57] LABS: Activated Partial Thrombo Time 30.1 Seconds (26.0-36.0)
[2021-05-14] MEDS: tiZANidine 4 MG TABLET PO PRN (19:06)
[2021-05-14] MEDS: Metoprolol XL (24 HR) Succ 25 MG TAB.ER.24H PO SCH (19:07)
[2021-05-14] MEDS: Isosorbide MONOnitrate (24 HR) 60 MG TAB.ER.24H PO SCH (19:07)
[2021-05-14 19:10] LABS: Alanine Aminotransferase 6 Units/L (7-52); Albumin 3.5 g/dL (3.5-5.7); Albumin/Globulin Ratio 1.1 (1.1-2.2); Alkaline Phosphatase 99 Units/L (34-104); Aspartate Amino Transferase 9 Units/L (13-39); BUN/Creatinine Ratio 11 (6-26); Bilirubin,Total 0.4 mg/dL (0.3-1.0); Blood Urea Nitrogen 10 mg/dL (6-20); Carbon Dioxide 26 mEq/L (23-29); Chloride 106 mEq/L (98-107); Globulin 3.2 g/dL (2.4-3.5); Glucose 223 mg/dL (70-105); Magnesium 1.6 mg/dL (1.6-2.6); Osmolality,Calculated 294 (280-300); Sodium 139 mEq/L (136-145); Total Protein 6.7 g/dL (6.4-8.9); Troponin I 0.06 ng/mL (< 0.04); eGFR For African Americans > 60 (> 60); eGFR For Non-African Americans > 60 (> 60)
[2021-05-14] MEDS ORDERED: Isovue-370 500 ML BOTTLE IVP ONE (19:35)
[2021-05-14] MEDS ORDERED: *HR* Heparin 5,000 UNIT/ML VIAL IVP PRN (19:43)
[2021-05-14] MEDS ORDERED: *HR* Heparin 5,000 UNIT/ML VIAL IVP ONE (19:43)
[2021-05-14] MEDS: Gabapentin 400 MG CAPSULE PO SCH (20:50)
[2021-05-14] MEDS: Ranolazine 500 MG TAB.ER.12H PO SCH (20:50)
[2021-05-14] MEDS: Heparin 25,000UNIT/250ML 1/2NS 25,000 UNIT/250 ML IV.SOLN IVC SCH (21:03)
[2021-05-15 05:09] LABS: Basophils # 0.1 K/mcL (0.0-0.2); Eosinophils # 0.3 K/mcL (0.0-0.6); Eosinophils % 4.5 %; Hematocrit 28.6 % (37.5-50.1); Immature Granulocytes % 0.3 % (0-4); Lymphocytes # 2.4 K/mcL (0.6-4.6); Lymphocytes % 39.4 %; Mean Corpuscular HGB Conc 31.8 g/dL (31.6-35.5); Mean Corpuscular Hemoglobin 26.5 pg (28.0-33.3); Mean Corpuscular Volume 83.4 fL (83.0-100.0); Mean Platelet Volume 10.5 fL (9.4-12.4); Monocytes # 0.6 K/mcL (0.0-1.3); Monocytes % 9.8 %; Neutrophils # 2.7 K/mcL (1.6-8.9); Platelet Count 386 K/mcL (140-400); Red Blood Count 3.43 M/mcL (4.19-5.50); Red Cell Distribution Width 14.3 % (11.5-14.5)
[2021-05-15 05:23] LABS: Hemoglobin 9.1 g/dL (12.9-16.9)
[2021-05-15 05:27] LABS: BUN/Creatinine Ratio 14 (6-26); Blood Urea Nitrogen 14 mg/dL (6-20); Calcium 8.4 mg/dL (8.6-10.3); Carbon Dioxide 26 mEq/L (23-29); Chloride 106 mEq/L (98-107); Chol/HDL Ratio 4.6 (0-4.9); Cholesterol 146 mg/dL (< 200); Glucose 188 mg/dL (70-105); HDL Cholesterol 32 mg/dL (40-59); LDL Cholesterol,Calculated 90 mg/dL (< 100); Osmolality,Calculated 291 (280-300); Potassium 4.2 mEq/L (3.5-5.1); Sodium 138 mEq/L (136-145); Triglycerides 119 mg/dL (< 150); eGFR For African Americans > 60 (> 60); eGFR For Non-African Americans > 60 (> 60)
[2021-05-15 06:02] LABS: Platelet Estimate Normal (Normal)
[2021-05-15 06:03] LABS: Reactive Lymphocytes Present (Not Present)
[2021-05-15] MEDS ORDERED: Isosorbide MONOnitrate (24 HR) 60 MG TAB.ER.24H PO SCH (09:00)
[2021-05-15] MEDS ORDERED: Metoprolol XL (24 HR) Succ 25 MG TAB.ER.24H PO SCH (09:00)
[2021-05-15] MEDS: Aspirin Enteric Coated 81 MG Tablet PO SCH (09:39)
[2021-05-15] MEDS: Isosorbide MONOnitrate (24 HR) 60 MG TAB.ER.24H PO SCH (09:39)
[2021-05-15] MEDS: Gabapentin 400 MG CAPSULE PO SCH ×3 (09:39→22:34)
[2021-05-15] MEDS: Metoprolol XL (24 HR) Succ 25 MG TAB.ER.24H PO SCH (09:40)
[2021-05-15] MEDS: Ranolazine 500 MG TAB.ER.12H PO SCH ×2 (09:40→22:34)
[2021-05-15] MEDS: tiZANidine 4 MG TABLET PO PRN (09:40)
[2021-05-15 10:09] LABS: Hematocrit 29.4 % (37.5-50.1); Hemoglobin 9.4 g/dL (12.9-16.9)
[2021-05-15] MEDS: *HR* Heparin 5,000 UNIT/ML VIAL IVP PRN (15:18)
[2021-05-15] MEDS: Heparin 25,000UNIT/250ML 1/2NS 25,000 UNIT/250 ML IV.SOLN IVC SCH (19:26)
[2021-05-16 05:00] LABS: Basophils # 0.1 K/mcL (0.0-0.2); Basophils % 0.8 %; Eosinophils # 0.2 K/mcL (0.0-0.6); Eosinophils % 3.4 %; Hematocrit 30.7 % (37.5-50.1); Hemoglobin 9.4 g/dL (12.9-16.9); Immature Granulocytes % 0.2 % (0-4); Lymphocytes # 1.9 K/mcL (0.6-4.6); Lymphocytes % 28.8 %; Mean Corpuscular HGB Conc 30.6 g/dL (31.6-35.5); Mean Corpuscular Hemoglobin 25.5 pg (28.0-33.3); Mean Corpuscular Volume 83.4 fL (83.0-100.0); Mean Platelet Volume 10.7 fL (9.4-12.4); Monocytes # 0.7 K/mcL (0.0-1.3); Neutrophils # 3.7 K/mcL (1.6-8.9); Platelet Count 347 K/mcL (140-400); Red Blood Count 3.68 M/mcL (4.19-5.50); Red Cell Distribution Width 14.6 % (11.5-14.5); Segmented Neutrophils % 56.8 %; White Blood Count 6.5 K/mcL (4.3-11.1)
[2021-05-16 05:22] LABS: BUN/Creatinine Ratio 16 (6-26); Blood Urea Nitrogen 19 mg/dL (6-20); Calcium 8.6 mg/dL (8.6-10.3); Carbon Dioxide 26 mEq/L (23-29); Chloride 106 mEq/L (98-107); Glucose 224 mg/dL (70-105); Osmolality,Calculated 291 (280-300); Potassium 4.5 mEq/L (3.5-5.1); Sodium 136 mEq/L (136-145); eGFR For African Americans > 60 (> 60); eGFR For Non-African Americans > 60 (> 60)
[2021-05-16] MEDS: Heparin 25,000UNIT/250ML 1/2NS 25,000 UNIT/250 ML IV.SOLN IVC SCH (07:16)
[2021-05-16] MEDS: *HR* Heparin 5,000 UNIT/ML VIAL IVP PRN ×2 (07:17→15:57)
[2021-05-16] MEDS: Aspirin Enteric Coated 81 MG Tablet PO SCH (08:27)
[2021-05-16] MEDS: Ranolazine 500 MG TAB.ER.12H PO SCH ×2 (08:27→21:22)
[2021-05-16] MEDS: Gabapentin 400 MG CAPSULE PO SCH ×3 (08:27→21:22)
[2021-05-16] MEDS: Metoprolol XL (24 HR) Succ 25 MG TAB.ER.24H PO SCH (08:27)
[2021-05-16] MEDS: Isosorbide MONOnitrate (24 HR) 60 MG TAB.ER.24H PO SCH (08:28)
[2021-05-16 19:02] VITALS: O2SAT 92
[2021-05-17 00:27] LABS: Basophils # 0.1 K/mcL (0.0-0.2); Basophils % 0.8 %; Eosinophils # 0.2 K/mcL (0.0-0.6); Eosinophils % 2.7 %; Hematocrit 29.9 % (37.5-50.1); Hemoglobin 9.1 g/dL (12.9-16.9); Immature Granulocytes % 0.3 % (0-4); Lymphocytes # 1.6 K/mcL (0.6-4.6); Lymphocytes % 21.7 %; Mean Corpuscular HGB Conc 30.4 g/dL (31.6-35.5); Mean Corpuscular Hemoglobin 25.4 pg (28.0-33.3); Mean Corpuscular Volume 83.5 fL (83.0-100.0); Mean Platelet Volume 10.7 fL (9.4-12.4); Monocytes # 0.6 K/mcL (0.0-1.3); Monocytes % 7.9 %; Neutrophils # 4.9 K/mcL (1.6-8.9); Platelet Count 348 K/mcL (140-400); Red Blood Count 3.58 M/mcL (4.19-5.50); Red Cell Distribution Width 14.3 % (11.5-14.5); Segmented Neutrophils % 66.6 %; White Blood Count 7.4 K/mcL (4.3-11.1)
[2021-05-17 00:44] LABS: BUN/Creatinine Ratio 15 (6-26); Blood Urea Nitrogen 16 mg/dL (6-20); Calcium 8.6 mg/dL (8.6-10.3); Carbon Dioxide 26 mEq/L (23-29); Chloride 105 mEq/L (98-107); Glucose 235 mg/dL (70-105); Osmolality,Calculated 287 (280-300); Potassium 4.4 mEq/L (3.5-5.1); Sodium 134 mEq/L (136-145); eGFR For African Americans > 60 (> 60); eGFR For Non-African Americans > 60 (> 60)
[2021-05-17 02:37] VITALS: BP 120/71; PULSE 68; TEMP 97.8
[2021-05-17] MEDS: Heparin 25,000UNIT/250ML 1/2NS 25,000 UNIT/250 ML IV.SOLN IVC SCH (02:46)
== END 2021-05-17 08:05 | disposition home or self-care (01) ==
LOC: 3ANU → SUATTDRO 15:50
PROVIDERS: ADMIT Family Medicine; ATTEND Student in an Organized Health Care Education/Training Program

== ENCOUNTER 2022-02-18 12:45 | Observation (INO) ==
[2022-02-18 14:48] LABS: Basophils # 0.1 K/mcL (0.0-0.2); Basophils % 0.7 %; Eosinophils # 0.2 K/mcL (0.0-0.6); Eosinophils % 2.4 %; Hematocrit 36.4 % (37.5-50.1); Hemoglobin 11.9 g/dL (12.9-16.9); Immature Granulocytes % 0.4 % (0-4); Lymphocytes # 1.9 K/mcL (0.6-4.6); Lymphocytes % 19.7 %; Mean Corpuscular HGB Conc 32.7 g/dL (31.6-35.5); Mean Corpuscular Hemoglobin 27.4 pg (28.0-33.3); Mean Corpuscular Volume 83.9 fL (83.0-100.0); Mean Platelet Volume 10.5 fL (9.4-12.4); Monocytes # 0.6 K/mcL (0.0-1.3); Monocytes % 6.5 %; Neutrophils # 6.6 K/mcL (1.6-8.9); Platelet Count 361 K/mcL (140-400); Red Blood Count 4.34 M/mcL (4.19-5.50); Red Cell Distribution Width 12.9 % (11.5-14.5); Segmented Neutrophils % 70.3 %; White Blood Count 9.4 K/mcL (4.3-11.1)
[2022-02-18 15:07] LABS: Calcium 9.6 mg/dL (8.6-10.3); Potassium 4.7 mEq/L (3.5-5.1)
[2022-02-18 15:21] LABS: Troponin I 0.06 ng/mL (< 0.04)
[2022-02-18] MEDS ORDERED: Iopamidol - 370 500 ML MLS IVP ONE (15:48)
[2022-02-18] MEDS ORDERED: *HR* Heparin 5,000 UNIT/ML VIAL IVP ONE ×2 (16:41→17:19)
[2022-02-18] MEDS ORDERED: *HR* Heparin 5,000 UNIT/ML VIAL IVP PRN ×4 (16:41→17:19)
[2022-02-18] MEDS ORDERED: Ondansetron ODT 4 MG TAB.RAPDIS SL PRN (17:19)
[2022-02-18] MEDS ORDERED: Naloxone 0.4 MG/ML INJ IVP PRN (17:19)
[2022-02-18] MEDS ORDERED: Melatonin 3 MG TABLET PO PRN (17:19)
[2022-02-18] MEDS ORDERED: Heparin 25,000UNIT/250ML 1/2NS 25,000 UNIT/250 ML IV.SOLN IVC SCH (17:30)
[2022-02-18] MEDS: Heparin 25,000UNIT/250ML 1/2NS 25,000 UNIT/250 ML IV.SOLN IVC SCH (17:44)
[2022-02-18 18:01] LABS: INR 1.2; Prothrombin Time 13.1 Seconds (9.4-12.1)
[2022-02-18 18:04] LABS: Activated Partial Thrombo Time 32.6 Seconds (26.0-36.0)
[2022-02-18 19:25] LABS: Hematocrit 35.8 % (37.5-50.1); Hemoglobin 11.8 g/dL (12.9-16.9); Mean Corpuscular Hemoglobin 27.3 pg (28.0-33.3); Mean Corpuscular Volume 82.9 fL (83.0-100.0); Mean Platelet Volume 10.7 fL (9.4-12.4); Platelet Count 330 K/mcL (140-400); Red Blood Count 4.32 M/mcL (4.19-5.50); Red Cell Distribution Width 12.9 % (11.5-14.5)
[2022-02-18] MEDS ORDERED: Dextrose Gel 15 GM/37.5 ML TUBE PO PRN ×2 (20:46)
[2022-02-18] MEDS ORDERED: D5% in Water 1,000 ML IVC PRN (20:46)
[2022-02-18] MEDS ORDERED: *HR* Dextrose 50 % in Water (Syg) 50 ML SYRINGE IVP PRN (20:46)
[2022-02-18] MEDS ORDERED: lisinopriL 10 MG TABLET PO ONE (21:02)
[2022-02-18] MEDS: Insulin LISPRO 300 UNITS/3 ML VIAL SUBQ SCH (22:06)
[2022-02-19 03:31] LABS: Basophils # 0.1 K/mcL (0.0-0.2); Basophils % 0.6 %; Eosinophils # 0.3 K/mcL (0.0-0.6); Eosinophils % 2.6 %; Hematocrit 30.4 % (37.5-50.1); Immature Granulocytes % 0.4 % (0-4); Lymphocytes # 2.1 K/mcL (0.6-4.6); Lymphocytes % 21.8 %; Mean Corpuscular HGB Conc 32.9 g/dL (31.6-35.5); Mean Corpuscular Hemoglobin 27.3 pg (28.0-33.3); Mean Corpuscular Volume 83.1 fL (83.0-100.0); Mean Platelet Volume 10.7 fL (9.4-12.4); Monocytes # 0.8 K/mcL (0.0-1.3); Monocytes % 7.7 %; Neutrophils # 6.5 K/mcL (1.6-8.9); Platelet Count 348 K/mcL (140-400); Red Blood Count 3.66 M/mcL (4.19-5.50); Red Cell Distribution Width 12.9 % (11.5-14.5); Segmented Neutrophils % 66.9 %; White Blood Count 9.7 K/mcL (4.3-11.1)
[2022-02-19 04:04] LABS: Albumin 3.1 g/dL (3.5-5.7); Albumin/Globulin Ratio 0.9 (1.1-2.2); Bilirubin,Total 0.2 mg/dL (0.3-1.0); Calcium 8.7 mg/dL (8.6-10.3); Chol/HDL Ratio 5.1 (0-4.9); Globulin 3.4 g/dL (2.4-3.5); Potassium 4.2 mEq/L (3.5-5.1); Total Protein 6.5 g/dL (6.4-8.9)
[2022-02-19] MEDS: Insulin LISPRO 300 UNITS/3 ML VIAL SUBQ SCH ×4 (07:22→21:01)
[2022-02-19] MEDS: Heparin 25,000UNIT/250ML 1/2NS 25,000 UNIT/250 ML IV.SOLN IVC SCH (09:15)
[2022-02-19] MEDS: Furosemide 40 MG/4 ML VIAL IVP SCH (11:43)
[2022-02-19] MEDS: *HR* Enoxaparin 100 MG/ML SYRINGE SQ SCH (17:28)
[2022-02-20 02:21] LABS: Basophils # 0.1 K/mcL (0.0-0.2); Basophils % 0.9 %; Eosinophils # 0.3 K/mcL (0.0-0.6); Eosinophils % 3.6 %; Hematocrit 28.2 % (37.5-50.1); Hemoglobin 9.2 g/dL (12.9-16.9); Immature Granulocytes % 0.6 % (0-4); Lymphocytes # 2.9 K/mcL (0.6-4.6); Lymphocytes % 31.6 %; Mean Corpuscular HGB Conc 32.6 g/dL (31.6-35.5); Mean Corpuscular Hemoglobin 27.5 pg (28.0-33.3); Mean Corpuscular Volume 84.2 fL (83.0-100.0); Mean Platelet Volume 10.6 fL (9.4-12.4); Monocytes # 0.8 K/mcL (0.0-1.3); Monocytes % 8.5 %; Platelet Count 350 K/mcL (140-400); Red Blood Count 3.35 M/mcL (4.19-5.50); Red Cell Distribution Width 12.9 % (11.5-14.5); Segmented Neutrophils % 54.8 %; White Blood Count 9.1 K/mcL (4.3-11.1)
[2022-02-20] MEDS: *HR* Enoxaparin 100 MG/ML SYRINGE SQ SCH (06:30)
[2022-02-20] MEDS ORDERED: Isosorbide MONOnitrate (24 HR) 60 MG TAB.ER.24H PO SCH (09:00)
[2022-02-20] MEDS ORDERED: Metoprolol XL (24 HR) Succ 50 MG TAB.ER.24H PO SCH (09:00)
[2022-02-20] MEDS ORDERED: lisinopriL 10 MG TABLET PO SCH (09:00)
[2022-02-20] MEDS ORDERED: hydroCHLOROthiazide 25 MG TABLET PO SCH (09:00)
[2022-02-20] MEDS ORDERED: Loratadine 10 MG TABLET PO SCH (09:00)
[2022-02-20] MEDS: Insulin LISPRO 300 UNITS/3 ML VIAL SUBQ SCH ×2 (09:03→14:07)
[2022-02-20] MEDS: Furosemide 40 MG/4 ML VIAL IVP SCH (09:39)
[2022-02-20] MEDS: Gabapentin 400 MG CAPSULE PO SCH ×2 (09:40→14:53)
[2022-02-20 14:37] VITALS: BP 180/104; PULSE 68; TEMP 98.3; O2SAT 99
== END 2022-02-20 16:19 | disposition home or self-care (01) ==
LOC: 2ANU 12:45 → EMEROOARM 12:45 → SUATTDRO 16:43 → 2ANU 18:05
PROVIDERS: ADMIT Internal Medicine; ATTEND Family Medicine